=== PATIENT | male | born 1965 | race Caucasian/White ===

== ENCOUNTER 2018-06-18 01:15 | Outpatient (CLI) | payer MEDICAID, SELFPAY ==
[2018-06-18 12:43] LABS: HCT 45.2 % (40.0-50.0); HGB 15.8 g/dL (13.5-17.5); Mean Corpuscular Hemoglobin 33.4 pg (27.0-33.0); Mean Corpuscular Volume 95.6 fL (80-95); Platelet Count 243 x1000/uL (130-400); RBC 4.73 m/cumm (4.50-6.00); RBC Distribution Width 13.5 % (11.8-14.1); White Blood Cell Count 10.46 k/cumm (4.4-10.8)
[2018-06-18 14:14] LABS: Chloride 91 mmol/L (98-107); Potassium 3.7 mmol/L (3.5-5.1); Sodium 128 mmol/L (136-145)
[2018-06-18 14:17] LABS: Absolute Lymphocyte Count 2.41 k/cumm (1.2-3.4); Absolute Monocyte Count 0.31 k/cumm (0.11-0.7); Absolute Neutrophil Count 7.64 k/cumm (1.2-6.7); Diff Comment Manual Differential; RBC Morphology Normal
[2018-06-18 14:31] LABS: Lipase 682 U/L (73-393)
[2018-06-18 15:10] LABS: ALT 60 U/L (12-78); AST 97 U/L (15-37); Albumin 2.8 g/dL (3.4-5.0); Alkaline Phosphatase 375 U/L (46-116); BUN 13 mg/dL (7-18); Bilirubin, Total 1.3 mg/dL (0.2-1.0); CREATININE 0.94 mg/dL (0.70-1.30); Calcium 9.1 mg/dL (8.5-10.1); Glucose 172 mg/dL (70-100); Total Protein 6.8 g/dL (6.4-8.2)
== END 2018-06-18 01:35 ==
PROVIDERS: PCP Family Medicine; Visit Provider Family Medicine
DX: R10.9 Unspecified abdominal pain (principal)
CPT/HCPCS: 36415; 80053; 83690; 85025

== ENCOUNTER 2018-06-25 11:25 | Outpatient (CLI) | payer MEDICAID, SELFPAY ==
[2018-06-25 13:53] LABS: Albumin 2.5 g/dL (3.4-5.0); BUN 10 mg/dL (7-18); Bilirubin, Total 1.1 mg/dL (0.2-1.0); CREATININE 0.66 mg/dL (0.70-1.30); Calcium 8.2 mg/dL (8.5-10.1); Chloride 99 mmol/L (98-107); Glucose 185 mg/dL (70-100); Potassium 4.2 mmol/L (3.5-5.1); Sodium 135 mmol/L (136-145); Total Protein 6.5 g/dL (6.4-8.2)
[2018-06-25 14:02] LABS: Lipase 458 U/L (73-393)
[2018-06-25 14:22] LABS: ALT 74 U/L (12-78); AST 125 U/L (15-37); Alkaline Phosphatase 376 U/L (46-116)
== END 2018-06-25 11:45 ==
PROVIDERS: PCP Family Medicine; Visit Provider Family Medicine
DX: R10.9 Unspecified abdominal pain (principal); K85.90 Acute pancreatitis without necrosis or infection, unspecified; F10.20 Alcohol dependence, uncomplicated
CPT/HCPCS: 36415; 80053; 83690

== ENCOUNTER 2018-07-28 01:41 | Outpatient (CLI) | payer MEDICAID, SELFPAY ==
[2018-07-28 11:46] LABS: Hemoglobin A1C 5.5 % (4.5-6.2)
== END 2018-07-28 02:01 ==
PROVIDERS: PCP Family Medicine; Visit Provider Family Medicine
DX: E74.39 Other disorders of intestinal carbohydrate absorption (principal)
CPT/HCPCS: 36415; 83036

== ENCOUNTER 2020-02-09 03:51 | Outpatient (CLI) | payer MEDICAID, SELFPAY ==
[2020-02-09 10:33] LABS: Abs Immature Grans 0.02 k/cumm (0.0-0.09); Absolute Basophil Count 0.04 k/cumm (0.0-0.2); Absolute Eosinophil Count 0.51 k/cumm (0.0-0.7); Absolute Lymphocyte Count 1.79 k/cumm (1.2-3.4); Absolute Monocyte Count 0.91 k/cumm (0.11-0.7); Absolute Neutrophil Count 4.36 k/cumm (1.2-6.7); Basophils % 0.5; Eosinophils % 6.7; HCT 42.7 % (40.0-50.0); HGB 14.2 g/dL (13.5-17.5); Immature Grans % 0.3 %; Lymphocytes % 23.5; Mean Corp. HGB Concentration 33.3 g/dL (32.0-36.0); Mean Corpuscular Hemoglobin 30.9 pg (27.0-33.0); Mean Corpuscular Volume 92.8 fL (80-95); Mean Platelet Volume 9.7 fL (8.0-11.0); Monocytes % 11.9; Neutrophils % 57.1; Platelet Count 344 x1000/uL (130-400); White Blood Cell Count 7.63 k/cumm (4.4-10.8)
[2020-02-09 11:26] LABS: ALT 42 U/L (16-63); AST 22 U/L (15-37); Albumin 3.9 g/dL (3.4-5.0); Alkaline Phosphatase 71 U/L (46-116); Anion Gap 7.8 mmol/L (3-11); BUN 23 mg/dL (7-18); Bilirubin, Total 0.6 mg/dL (0.2-1.0); CO2 28.2 mmol/L (21.0-32.0); CREATININE 0.75 mg/dL (0.70-1.30); Calcium 9.2 mg/dL (8.5-10.1); Calculated LDL 144 mg/dL (<100); Chloride 103 mmol/L (98-107); Cholesterol 233 mg/dL (<200); Glucose 104 mg/dL (74-106); HDL Cholesterol 37 mg/dL (40-60); Potassium 4.7 mmol/L (3.5-5.1); Sodium 139 mmol/L (136-145); Total Protein 7.1 g/dL (6.4-8.2); Triglyceride 262 mg/dL (<150)
== END 2020-02-09 04:11 ==
PROVIDERS: Nurse Practitioner Family; PCP Family Medicine; Visit Provider Family Medicine Addiction Medicine
DX: R42 Dizziness and giddiness (principal); I10 Essential (primary) hypertension; E78.5 Hyperlipidemia, unspecified
CPT/HCPCS: 36415; 80053; 80061; 85025

== ENCOUNTER 2020-03-04 08:09 | Outpatient (CLI) | payer MEDICAID, SELFPAY ==
[2020-03-07 00:07] LABS: SARS-CoV-2 RNA Undetected (Undetected); SARS-CoV-2 Specimen Source Nasopharynx
== END 2020-03-04 08:29 ==
PROVIDERS: PCP Family Medicine; Visit Provider Family Medicine
DX: Z11.59 Encounter for screening for other viral diseases (principal)
CPT/HCPCS: U0003

== ENCOUNTER 2020-03-06 11:33 | Emergency (ER) | payer MEDICAID, SELFPAY ==
--- NOTE | 2020-03-06 11:44 | ED.GENADUL_ITS ---
Discharge Plan Disposition Patient Disposition: HOME Condition: Improving Discharge Details Chief Complaint: Nk/Back Pain Clinical Impression: Back pain, Acute back pain with sciatica Primary Care Provider: Wenceslao Jimenez ED Provider: Angelia Austin Home Meds and New Rx's Prescriptions: New diazepam [Valium] 5 mg tablet 5 mg PO BID PRN (Reason: muscle spasm) Qty: 10 RF: 0 Continued naproxen 500 mg tablet 500 mg PO BID PRN (Reason: pain) Qty: 60 RF: 1 albuterol sulfate [ProAir HFA] 90 mcg/actuation HFA aerosol inhaler 1 - 2 puff Inhalation Q4H PRN Qty: 1 RF: 3 omeprazole 20 mg tablet,delayed release (DR/EC) 20 mg PO DAILY Qty: 90 RF: 3 lisinopril 5 mg tablet 5 mg PO DAILY Qty: 90 RF: 3 metoprolol tartrate 100 mg tablet 50 mg PO BID Qty: 180 RF: 3 Discharge Instructions Instructions: Back Pain (ED) Additional Instructions: Your imaging and exam is reassuring today. I believe the majority of your pain is coming from muscle spasm. Please encourage water intake. You may continue with Tylenol and/or ibuprofen as needed for discomfort. Please take as directed on the bottle. You may also use topical options such as lidocaine patch to help with more long-term discomfort relief. Please use the Valium as prescribed for any persistent muscle spasm. Please take this only as prescribed do not drive will take this medication. Attached is a referral for physical therapy. Please contact your primary care tomorrow to schedule follow-up appointment this week for reevaluation. If you develop fever/chills, increased pain, change in bowel or bladder habits, sensation changes, weakness or other new/worsening symptom please seek care urgently once again. Stand Alone Forms: Physical Therapy Referral Referrals: Wenceslao Jimenez [Primary Care Provider] - Medical Decision Making Patient is a 54-year-old gentleman presenting today with chief complaint of right-sided lower back pain that began 5 days ago and radiates into the right lower extremity. He reports that 5 days ago he was working on his truck trying to pull a piece out of the front and loose. States that he was pulling as hard as he could when the object let go and he stumbled prior to falling backwards. Describes falling more towards the right side of his lower back. States that initially, he was not having any pain and immediately was able to get up and go back to work. However, he states that the following morning he woke up feeling tight states that the following morning, he woke up feeling more uncomfortable again on the right lower side. He indicates the right buttock is area of pain. States that yesterday when he awoke he was so uncomfortable he was having difficulty with ambulation. States that he does have tingling that extends into the right lower extremity. Denies any numbness. No changes in bowel or bladder habits. Denies any fevers or chills. Has not had pain like this historically. No previous back surgeries. States that he took ibuprofen just prior to arrival to help with discomfort. On exam, patient appears uncomfortable. He is moving frequently trying to find a comfortable position. Exam of his back is significant for no CVA tenderness, no midline tenderness, no step-off deformity, no ecchymosis or evidence of trauma. He has no paraspinal tenderness. He is more precisely indicating the right buttock is area of discomfort although no pain is elicited with palpation over this area. He has no saddle paresthesias. Post void residual obtained by nursing staff found to be 38 cc. He has no focal area of weakness, no foot drop. Patient's history and exam is most consistent with muscular spasm likely leading to sciatica. Do not appreciate any neurologic deficit to suggest cauda equina. Not see any evidence to suggest infection. While patient did have atraumatic onset, he did not seem to have any discomfort initially. Not have any suspicion for bony pathology at this point. Will hold off on imaging for now and treat as muscle spasm. Patient was given Lidoderm patch, Tylenol and 5 mg of p.o. Valium. Despite this intervention, he states that pain persists and has not improved. I will augment this with oxycodone tablet. Patient received p.o. oxycodone and reports that pain persists. States it is now down to a 9 out of 10. With the patient's continued persistent discomfort despite the above intervention, I do feel that imaging would be appropriate I will move forward with x-rays. He continues to have no midline discomfort and no evidence of neurologic dysfunction. FINDINGS: Bones/joints: No acute fracture is identified. The right hip joint is normally aligned. Left hip joint alignment cannot be confirmed without a lateral view. A left hip prosthesis is noted. Soft tissues: Phleboliths overlie the pelvis. IMPRESSION: No significant abnormality. Left hip prosthesis noted. FINDINGS: Bones/joints: Question nondisplaced fracture of the lower sacrum at the S5 level. No other fracture is evident. A left hip prosthesis is partially visualized. There is no osseous erosion or cortical destruction. The sacroiliac joints appear patent. Soft tissues: The soft tissues appear grossly unremarkable. IMPRESSION: Question nondisplaced lower sacral fracture at the S5 level. MRI would be more definitive as clinically appropriate. With this, will obtain CT for further evaluation of possiblefracture. Reevaluated the patient. He states that his pain still remains severe but he appears much more comfortable. He states that pain is still a 10 but that initially, itwas a 30. He is now reporting that he last took NSAID at 0600. FINDINGS: Bones/joints: There is beam hardening artifact from left hip prosthesis. Lower lumbar spondylosis noted. Bone density is appropriate. Alignment appears anatomic without evidence for fracture. Soft tissues: Unremarkable. IMPRESSION: No evidence for fracture Discussed his findings with the patient. Advised likely muscle spasm with associated sciatica. He states that at this time, he is feeling much improved and is is moving around much more comfortably. Patient is able to have full rotation to the right, left, good movement and strength in the bilateral lower extremities. He continues to have no midline tenderness. He has good forward flexion and extension although he does report increased discomfort with extension. Encourage gentle stretching. This was demonstrated for the patient. I encouraged heat. We discussed [id number] home regimens to help with discomfort. We will also prescribe the patient a short course of Valium to help with muscle spasm. I did encourage close follow-up with primary care. Referral for physical therapy will be sent. Patient was given strict return precautions.all of his questions and concerns were addressed all and she is in agreement with this plan. HPI General Mode of arrival: ambulatory . Date/Time Provider Initiated Documentation: 03/06/20 11:42 . Limitations to Documentation: no limitations . Information obtained by: patient and RN notes reviewed . History of Present Illness 54 year old M presents to the emergency department with the chief complaint of right sided lower back pain, described as severe, with intensity rated at >10. Quality is described as stabbing, and is localized to the back (indicates right buttock and SI joint as area of maximal tenderness). Patient extremity (into RLE). Patient started experiencing this day(s) (5) and it has been constant (progressively worsening). Immobilization improves symptom(s), Movement worsens symptoms . Patient notes no other symptoms.. Patient did receive the following treatments prior to arrival, NSAID (states he took Ibuprofen just prior ot arrival) Related Data Home Medications Medication Instructions Recorded Confirmed naproxen 500 mg tablet 500 mg PO BID PRN #60 tab 12/10/18 03/06/20 albuterol sulfate 90 mcg/actuation 1 - 2 puff INHALATION Q4H PRN #1 05/15/19 03/06/20 aerosol inhaler inhaler omeprazole 20 mg tablet,delayed 20 mg PO DAILY #90 tab 05/15/19 03/06/20 release lisinopril 5 mg tablet 5 mg PO DAILY #90 tab-cap 12/01/19 03/06/20 metoprolol tartrate 100 mg tablet 50 mg PO BID #180 tab-cap 03/02/20 03/06/20 diazepam [Valium] 5 mg PO BID PRN #10 tab 03/06/20 Previous Rx's Medication Instructions Recorded naproxen 500 mg tablet 500 mg PO BID PRN #60 tab 12/10/18 albuterol sulfate 90 mcg/actuation 1 - 2 puff INHALATION Q4H PRN #1 05/15/19 aerosol inhaler inhaler omeprazole 20 mg tablet,delayed 20 mg PO DAILY #90 tab 05/15/19 release lisinopril 5 mg tablet 5 mg PO DAILY #90 tab-cap 12/01/19 metoprolol tartrate 100 mg tablet 50 mg PO BID #180 tab-cap 03/02/20 diazepam [Valium] 5 mg PO BID PRN #10 tab 03/06/20 Allergies Allergy/AdvReac Type Severity Reaction Status Date / Time codeine Allergy Mild SKIN RASH Verified 03/02/20 09:02 Review of Systems Constitutional Constitutional: Reports as per HPI, Denies chills, Denies fatigue, Denies fever( s), Denies frequent falls, Denies headache(s) and Denies weakness Eyes Eyes: Denies change in vision ENT Ears, Nose, Mouth, and Throat: Denies headache(s) Cardiovascular Cardiovascular: Denies chest pain, Denies dyspnea and Denies dyspnea on exertion Respiratory Respiratory: Denies cough, Denies dyspnea and Denies dyspnea on exertion Gastrointestinal Gastrointestinal: Denies abdominal pain, Denies change in bowel habits and Den ies fecal incontinence Genitourinary Genitourinary: Reports as per HPI, Denies urinary hesitancy and Denies urinary incontinence Musculoskeletal Musculoskeletal: Reports as per HPI, Reports back pain, Denies muscle weakness, Denies numbness, Denies radiating pain into limb, Reports stiffness and Reports tingling Integumentary/Breasts Skin/Breast: Reports as per HPI and Denies rash Neurologic Neurologic: Reports as per HPI, Denies frequent falls, Denies headache(s), Denies localized weakness, Denies numbness, Reports radicular pain (states he is having difficulty walking secondary to pain radiating into RLE), Denies sensory deficit, Reports tingling and Denies weakness Endocrine Endocrine: Denies fatigue [facility] Medical History (Updated 03/06/20 @ 15:22 by ZAIN Yeung) Hyperlipidemia (Acute) Surgical History Arthroplasty 07/05/15; LEFT HIP;[facility] GASTROSCOPY 06/21/14- DR. 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 Drug use: Rarely Do you feel safe in your relationship?: Yes Exam Const General: cooperative, healthy appearing, uncomfortable, no acute distress, well developed and well groomed Nutritional Appearance: average body habitus and well nourished Orientation: alert and awake Eyes General: appearance normal, both eyes and all related structures Neck Neck: normal visual inspection, full ROM, no lymphadenopathy and no meningeal signs Resp Effort & Inspection: normal respiratory effort and able to speak in complete sentences Auscultation: clear to auscultation bilaterally, no rales, no rhonchi and no wheezes Cardio Rate: regular rate Rhythm: regular rhythm Heart Sounds: S1 normal and S2 normal Back/Spine/Pelvis Back: no CVA tenderness Cervical Spine: normal cervical lordosis, cervical ROM normal, No cervical spinal tenderness and No step off deformity Thoracic/Lumbar Spine: thoracic and lumbar spine normal to inspection, No paraspinal tenderness, No thoraco-lumbar ROM limited, No thoracic spinal tenderness, No lumbar spinal tenderness and straight leg raise positive (negative on left, pain with ovement of RLE) Pelvis: no pain with anterior-posterior compression, no pain with lateral compr ession, no buttock ecchymosis and no buttock tenderness (indicates right buttock as area of pain but none elicited with palpation) Sacroiliac joints: bilaterally nontender and tender to palpation Sacrum: no ecchymosis, no erythema, no swelling and no tenderness Coccyx: no swelling and no tenderness Skin General skin exam: no rashes or lesions noted Neuro General: patient alert and patient awake Cognition: normal cognition Speech: speech normal Gait: antalgic Motor: muscle tone normal throughout, strength 5/5 throughout, no movement abnormalities noted and no fasciculations Sensory Exam: no sensory deficits noted (no saddle paresthesias) DTR's: Rt Patellar: 2+, Lt Patellar: 2+, Rt Ankle: 2+ and Lt Ankle: 2+ Plantar Reflexes: Downgoing: bilateral Extrem General: normal to inspection, full ROM, capillary refill normal, no joint enlargement, no pedal edema and no calf tenderness Psych Appearance: grossly normal and well kempt Mental Status: mental status grossly normal Speech and Movement: speech and movement normal
[2020-03-06 11:56] VITALS: BP 155/83; PULSE 86; RESP 18; TEMP 36.9; O2SAT 96
[2020-03-06] MEDS: diazePAM 5 MG TAB PO (12:28)
[2020-03-06] MEDS: Acetaminophen 500 MG TAB 1000 MG PO (12:28)
[2020-03-06 12:35] VITALS: BP 127/80; PULSE 80; RESP 18; O2SAT 94
[2020-03-06] MEDS: Lidocaine 5% Patch 1 PATCH TP ×2 (13:11→13:13)
[2020-03-06] MEDS: oxyCODONE 5 MG TAB PO (13:21)
--- NOTE | 2020-03-06 13:40 | DI.RAD_ITS ---
EXAM: XR HIP RT COMPLETE AP PELVIS INDICATION: fall 4 days ago. COMPARISON: CR LEFT HIP COMPLETE from 11/21/2012 TECHNIQUE: 2D digital imaging was performed. FINDINGS: There is a left hip prosthesis. The right hip joint space is well maintained. There is no evidence of fracture or dislocation. IMPRESSION: No acute abnormality. DATA REPOSITORY: RADIATION DOSE DELIVERED:
--- NOTE | 2020-03-06 13:45 | DI.RAD_ITS ---
EXAM: XR SACRUM COCCYX CLINICAL HISTORY: right sided pain. TECHNIQUE: 2D digital imaging was performed. COMPARISON: No exams were available for comparison FINDINGS: BONES: No acute fracture is present. No bony destructive lesion is seen. A left hip prosthesis is seen. SOFT TISSUE: Normal. IMPRESSION: Unremarkable radiographs of the insert body part. DATA REPOSITORY: RADIATION DOSE DELIVERED:
--- NOTE | 2020-03-06 14:03 | DI.VRAD_ITS ---
PROCEDURE INFORMATION: Exam: XR Sacrum and Coccyx, 2 or More Views Exam date and time: 03/06/2020 1:37 PM Age: 54 years old Clinical indication: Pain in coccyx area TECHNIQUE: Imaging protocol: XR of the sacrum and coccyx, 2 or more views. COMPARISON: No relevant prior studies available. FINDINGS: Bones/joints: Question nondisplaced fracture of the lower sacrum at the S5 level. No other fracture is evident. A left hip prosthesis is partially visualized. There is no osseous erosion or cortical destruction. The sacroiliac joints appear patent. Soft tissues: The soft tissues appear grossly unremarkable. IMPRESSION: Question nondisplaced lower sacral fracture at the S5 level. MRI would be more definitive as clinically appropriate. Dictated and Authenticated by: Alvarado Davidson MD. Ordering:KAIDEN Galan MD
--- NOTE | 2020-03-06 14:04 | DI.VRAD_ITS ---
PROCEDURE INFORMATION: Exam: XR Right Hip with Pelvis when Performed Exam date and time: 03/06/2020 1:36 PM Age: 54 years old Clinical indication: Pelvic pain TECHNIQUE: Imaging protocol: XR Right hip with pelvis when performed. Views: 2 or 3 views. COMPARISON: No relevant prior studies available. FINDINGS: Bones/joints: No acute fracture is identified. The right hip joint is normally aligned. Left hip joint alignment cannot be confirmed without a lateral view. A left hip prosthesis is noted. Soft tissues: Phleboliths overlie the pelvis. IMPRESSION: No significant abnormality. Left hip prosthesis noted. Dictated and Authenticated by: Alvarado Davidson MD. Ordering:KAIDEN Galan MD
[2020-03-06 14:07] VITALS: BP 114/82; PULSE 70; RESP 20; TEMP 36.7; O2SAT 98
[2020-03-06] MEDS: Ketorolac 60 MG/2 ML VIAL IM (14:29)
--- NOTE | 2020-03-06 14:55 | DI.CT_ITS ---
EXAM: CT SACRUM AND COCCYX WO CLINICAL HISTORY: concern for fx on xr. TECHNIQUE: Imaging Protocol: Axial computed tomography images with coronal and sagittal reformatted images were created and reviewed. CONTRAST MATERIAL: Noncontrast COMPARISON: None. FINDINGS: Bones: There is no evidence of fracture. SI joints appear intact. L4-5: Small endplate osteophytes. L5-S1: No disc herniations or bulges are present. Sacrum: There is a bone island in the left sacrum. Soft Tissues: The paraspinal soft tissues are unremarkable. IMPRESSION: No acute abnormality. RADIATION DOSE DELIVERED: 403.56mGy.cm Total DLP DATA REPOSITORY: All CT scans at this facility are submitted to the National Radiology Data Registry (NRDR) Dose Index Registry (DIR) with the [employer] (ACR). RADIATION OPTIMIZATION: All CT scans at this facility use at least one of these dose optimization te chniques: automated exposure control; mA and/or kV adjustment per patient size (includes targeted exa ms where dose is matched to clinical indication); or iterative reconstruction.
--- NOTE | 2020-03-06 15:08 | DI.VRAD_ITS ---
PROCEDURE INFORMATION: Exam: CT Pelvis Without Contrast; Skeletal Exam date and time: 03/06/2020 2:23 PM Age: 54 years old Clinical indication: Other: Sacrum and coccyx pain; Patient HX: Patient fell 4 days ago. TECHNIQUE: Imaging protocol: Computed tomography images of the pelvis without contrast. Exam focused on the skeletal structures. Radiation optimization: All CT scans at this facility use at least one of these dose optimization techniques: automated exposure control; mA and/or kV adjustment per patient size (includes targeted exams where dose is matched to clinical indication); or iterative reconstruction. COMPARISON: CR XR HIP RT COMPLETE AP PELVIS 03/06/2020 1:35 PM FINDINGS: Bones/joints: There is beam hardening artifact from left hip prosthesis. Lower lumbar spondylosis noted. Bone density is appropriate. Alignment appears anatomic without evidence for fracture. Soft tissues: Unremarkable. IMPRESSION: No evidence for fracture. Dictated and Authenticated by: Sarita Carballo MD. Ordering:KAIDEN Galan MD
== END 2020-03-06 18:10 | disposition home or self-care (01) ==
PROVIDERS: Emergency Provider Physician Assistant; PCP Family Medicine
DX: M54.41 Lumbago with sciatica, right side (principal); X50.0XXA Overexertion from strenuous movement or load, initial encounter; W19.XXXA Unspecified fall, initial encounter; M62.830 Muscle spasm of back; Z96.642 Presence of left artificial hip joint
CPT/HCPCS: 96372; 99284; 72192; 72220; 73502; 99285; J1885

== ENCOUNTER 2020-06-21 11:40 | Outpatient (CLI) | payer MEDICAID, SELFPAY ==
--- NOTE | 2020-06-21 06:45 | DI.RAD_ITS ---
EXAM: XR CERVICAL SPINE COMP 4-5V CLINICAL HISTORY: cervical radiculopathy,NECK PAIN,M54.2 TECHNIQUE: COMPARISON: No exams were available for comparison FINDINGS: Seven views were obtained. There is slight narrowing of the intervertebral disc spaces at C5-6 and C 6-7 levels. Minimal hypertrophic spurring of the vertebral endplates and facet joints is noted. Beatrice ral foramina appear fairly well maintained as visualized. No focal bony lesion identified. Prevertebral soft tissues appear intact. IMPRESSION: Mild degenerative changes of the cervical spine as described above. RADIATION DOSE DELIVERED: Total DLP Total DLP
== END 2020-06-21 12:00 ==
PROVIDERS: PCP Family Medicine; Visit Provider Nurse Practitioner Family
DX: M47.22 Other spondylosis with radiculopathy, cervical region (principal)
CPT/HCPCS: 72050

== ENCOUNTER 2020-10-18 10:51 | Outpatient (CLI) | payer MEDICAID, SELFPAY ==
--- NOTE | 2020-10-18 09:30 | DI.RAD_ITS ---
EXAM: XR SHOULDER LT COMPLETE 2+V CLINICAL HISTORY: left shoulder pain. TECHNIQUE: 2D digital imaging was performed. COMPARISON: No exams were available for comparison FINDINGS: BONES: No acute fracture is present. No bony destructive lesion is seen. JOINTS: No dislocation present. Minimal spurring at the AC joint and margin of the glenoid. SOFT TISSUE: Normal. IMPRESSION: Mild degenerative changes of the left shoulder. DATA REPOSITORY: RADIATION DOSE DELIVERED:
== END 2020-10-18 10:52 | disposition home or self-care (01) ==
LOC: DIORS 10:51
PROVIDERS: PCP Family Medicine; Referring Provider Family Medicine; Visit Provider Student in an Organized Health Care Education/Training Program
DX: M25.512 Pain in left shoulder (principal); M19.012 Primary osteoarthritis, left shoulder
CPT/HCPCS: 73030

== ENCOUNTER 2020-11-07 02:11 | Outpatient (CLI) | payer MEDICAID, SELFPAY ==
--- NOTE | 2020-11-07 09:45 | DI.MRI_ITS ---
EXAM: MR CERVICAL SPINE WO CLINICAL HISTORY: CERVICAL RADICULOPATHY,M54.12 TECHNIQUE: Multiplanar multisequence MRI of the cervical spine was performed without intravenous con trast. COMPARISON: X-rays performed 06/21/2020 were reviewed FINDINGS: CERVICOMEDULLARY JUNCTION: Intact with no evidence of cerebellar tonsillar ectopia. No obvious abnor mality of the odontoid process. No evidence of Chiari 1 malformation. CERVICAL SPINAL CORD: There is no abnormal signal in the cervical spinal cord and no evidence of foca l cord atrophy nor focal cord swelling. OSSEOUS:There are no cervical fractures evident. No significant osseous lesions in the cervical vert ebrae. INDIVIDUAL LEVELS: C2-3: No disc herniation nor central canal stenosis. No foraminal stenosis. Moderate degenerative ch anges in both facet joints at this level. C3-4: There is significant disc space narrowing at this level. Right-sided Luschka joint osteophytes noted. There is right-sided disc-osteophyte complex. Central canal dimensions are lower normal. M ild degenerative changes are evident in both facet joints. Bilateral foraminal stenosis.. C4-5: Mild disc space narrowing.Mild annular bulging. On the right side there is a disc-Luschka join t osteophyte complex. Mild bilateral foraminal stenosis. Some degenerative changes also evident in both facet joints. C5-6: Mild-moderate disc space narrowing. Bilateral disc-Luschka joint osteophyte complexes which re sult in element of bilateral foraminal stenosis. Central canal dimensions are lower normal. Only mi ld degenerative changes evident in the facet joints at this level. C6-7: Moderate disc space narrowing. Bilateral Luschka joint osteophytes causing bilateral foraminal stenosis-moderate. On the right side there appears to be a posterolateral right disc protrusion whi ch extends posteriorly 3 millimeters and is approximately 7 millimeters wide. There is foraminal zafar nosis bilaterally at this level. No abnormal signal in the cord and the central canal dimensions are lower normal. C7-T1: No disc herniation nor central canal stenosis. No facet arthropathy.No foraminal stenosis. Incidentally noted on the sagittal images is a disc protrusion at T3-T4 level which appears to contac t the thoracic spinal cord. This thoracic level was not imaged the axial sequences. IMPRESSION: 1. Multilevel chronic-type degenerative disc disease with multilevel disc space narrowing and multile pati bilateral Luschka joint osteophytes causing an element of foraminal stenosis at multiple levels, as described above. 2. No significant central spinal canal stenosis nor abnormal signal within the cervical spinal cord. Also no evidence of significant cord swelling nor focal cord atrophy in the cervical spine. 3. Incidentally noted is a disc protrusion at T3-4 level, only scanned in the sagittal plane. If cli nically indicated MRI scan thoracic spine can be performed to determine number of disc protrusions in the thoracic spinal column. DATA REPOSITORY:
== END 2020-11-07 02:31 ==
PROVIDERS: PCP Family Medicine; Visit Provider Student in an Organized Health Care Education/Training Program
DX: M54.12 Radiculopathy, cervical region (principal); M50.11 Cervical disc disorder with radiculopathy, high cervical region; M50.022 Cervical disc disorder at C5-C6 level with myelopathy; M99.71 Connective tissue and disc stenosis of intervertebral foramina of cervical region
CPT/HCPCS: 72141

== ENCOUNTER 2020-12-14 04:30 | Inpatient (IN) | payer MEDICAID, SELFPAY ==
[2020-12-14] VITALS (77 sets, daily range): BP systolic 99–152; BP diastolic 50–102; PULSE 61–99; RESP 10–22; TEMP 35.4–36.9; O2SAT 92–100
--- NOTE | 2020-12-14 | DI.MRI_ITS ---
Exam(s) MR ANGIO BRAIN WO EXAM: MR ANGIO BRAIN WO CLINICAL HISTORY: cerebellar cva TECHNIQUE: Brain MRA was performed on 1.5 adán unit using [id number] sequence. No IV contrast COMPARISON: MR MR BRAIN WO from 12/14/2020. Also reviewed proceeding CT scans performed earlier same date FINDINGS: ANTERIOR CIRCULATION: Both internal carotid arteries are demonstrated be patent in the skull base-carotid canals as well as within the cavernous sinuses. Both ophthalmic arteries are patent and originated conventional fashi on off of the intracavernous internal carotid arteries. Supraclinoid aspects of both internal caroti d arteries are patent. No aneurysms. Both middle cerebral arteries are patent out to the sylvian fi ssure branches. Also no aneurysms in these vessels. Both A1 segments are patent as are the anterior cerebral arteries and there is no evidence of aneurysm at the level of the anterior communicating ar agata nor elsewhere in the [id number]. POSTERIOR CIRCULATION: Both vertebral arteries are patent at the skull base and contribute to the formation of the basilar a rtery. Posterior inferior cerebellar arteries arise from the vertebral arteries at the skull base. The basilar artery ascends in the midline without evidence of intraluminal thrombus nor dissection. Distally it gives off patent bilateral superior cerebellar arteries and above this level terminates a s patent bilateral posterior cerebral arteries. There is no evidence of aneurysm of the tip of the b asilar artery. There is a tiny posterior communicating artery on the right side of the [id number] lis. IMPRESSION: 1. Patent intracranial arteries, as described above. 2. Findings in both cerebellar hemispheres described on this CT and MRI (diffusion imaging) involving both cerebellar hemispheres both inferiorly and superiorly. High suspicion for embolic disease. Please note that CT angiography performed earlier today revealed a significant finding in the left lane bclavian artery proximal to the left vertebral artery takeoff point and this may be culprit origin of emboli. Findings called by myself to the hospitalist 12/14/2020 following completion of the study. DATA REPOSITORY:
--- NOTE | 2020-12-14 | DI.MRI_ITS ---
Exam(s) MR BRAIN WO EXAM: MR BRAIN WO CLINICAL HISTORY: cerebellar stroke TECHNIQUE: Multiplanar multisequence MRI of the brain was performed. COMPARISON: CT CT HEAD WO from 12/14/2020 FINDINGS: CEREBRAL PARENCHYMA: There is no evidence of intracranial hemorrhage. However, there are multiple foci of signal abnormal ity in both cerebellar hemispheres, significantly more so than expected from the CT scan and also exh ibiting significant abnormal signal on diffusion imaging. These are in both cerebellar hemispheres l ocated both superiorly and inferiorly. No similar supra tentorial findings evident, with only a few small foci of nonspecific signal abnormality in the periventricular white matter noted. Ventricles are not enlarged or shifted. There is no abnormal signal in the thalami nor in the martha a nd midbrain. Also sparing of the medulla. No evidence of cerebellar tonsillar ectopia. PITUITARY GLAND: No mass nor parasellar abnormality. No obvious abnormality in the cavernous sinuses. FLOW VOIDS: The expected flow void are noted. No evidence of obvious aneurysm nor obvious vascular ma lformation. PARANASAL SINUSES: The visualized paranasal sinuses appear unremarkable. No obvious finding ORBITS: No obvious findings. IMPRESSION: Extensive signal abnormality in both cerebellar hemispheres both superiorly and inferiorly implying t hat there is involvement of both right and left territories of the posterior inferior cerebellar donato haim as well as the superior cerebellar arteries. No evidence of intracranial hemorrhage. DATA REPOSITORY:
--- NOTE | 2020-12-14 04:30 | RT.EKG_ITS ---
APPROVED REPORT Exam: Resting ECG Reason for Exam: vomiting Patient Location: E HR:65 bpm ECG Measurements Heart Rate 65 AXIS OK 152 P 84 QRSd 121 QRS 80 QT 426 T 54 QTc 444 Conclusion Sinus rhythm...normal P axis, V-rate 60- 99 Nonspecific intraventricular conduction delay...QRSd >115mS, not LBBB/RBBB No stemi
--- NOTE | 2020-12-14 04:30 | DI.CT_ITS ---
Exam(s) CT HEAD WO EXAM: CT HEAD WO CLINICAL HISTORY: vomiting, right moravian headache, r/o bleed or mass. TECHNIQUE: Imaging Protocol: Axial computed tomography images with coronal and sagittal reformatted images were created and reviewed COMPARISON: No exams were available for comparison FINDINGS: There are no skull fractures nor fluid in the visualized paranasal sinuses. There is no abnormal area of hypodensity in the left cerebellar hemisphere measuring approximately 2 x 2 cm suspicious for infarct. Smaller area of hypodensity in the right cerebellar hemisphere measur ing 1 x 1 cm is also noted. In the supratentorial compartment there are no abnormal hypodense areas. Ventricular size is normal. No evidence of intracranial hemorrhage. No shift. IMPRESSION: Abnormal areas of hypodensity in both cerebellar hemispheres, left larger than right. First consider ation is for nonhemorrhagic infarctions in the posterior circulation territory. MRI/MRA or CT angiog lisa is recommended. RADIATION DOSE DELIVERED: 849.81mGy.cm Total DLP DATA REPOSITORY: All CT scans at this facility are submitted to the National Radiology Data Registry (NRDR) Dose Index Registry (DIR) with the [employer] (ACR). RADIATION OPTIMIZATION: All CT scans at this facility use at least one of these dose optimization te chniques: automated exposure control; mA and/or kV adjustment per patient size (includes targeted exa ms where dose is matched to clinical indication); or iterative reconstruction.
[2020-12-14] MEDS: Ondansetron 4 MG/2 ML VIAL (04:44)
--- NOTE | 2020-12-14 04:44 | W.ED.GENAD ---
Discharge Plan Disposition Patient Disposition: [facility] INPATIENT Condition: Stable Discharge Details Chief Complaint: Dizzy/Sync Clinical Impression: Cerebellar stroke, Nausea & vomiting Primary Care Provider: Wenceslao Jimenez ED Provider: Oracio Feng Home Meds and New Rx's Prescriptions: No Action lisinopril 5 mg tablet 5 mg PO DAILY Qty: 90 RF: 3 omeprazole 20 mg tablet,delayed release (DR/EC) 20 mg PO DAILY PRN (Reason: acid reflux) Qty: 90 RF: 3 metoprolol succinate 50 mg tablet extended release 24 hr 50 mg PO DAILY Qty: 90 RF: 3 albuterol sulfate [ProAir HFA] 90 mcg/actuation HFA aerosol inhaler 1 - 2 puff Inhalation Q4H PRN Qty: 1 RF: 3 buprenorphine-naloxone [Suboxone] 2-0.5 mg Tablet, Sublingual 1 tab SUBLINGUAL DAILY RF: 0 Medical Decision Making This is a 55-year-old male with a past medical history of high cholesterol tobacco abuse who presents today for evaluation of vomiting. Patient states that he woke up about an hour ago with symptoms of dizziness, room spinning, nausea vomiting and 1-2 episodes of loose stool. He also admits to a mild sharp right-sided temporal headache. The patient denies any headache red flags of worst headache of life, thunderclap headache, neck pain, fever, chills, concerning family history of polycystic kidney disease, Marfan syndrome, Deb-Danlos syndrome, abdominal aortic aneurysm, aortic dissection, or intracranial aneurysm. Patient denies any alcohol this evening, any new medications, any IV or illicit drugs. He denies eating anything atypical, or any other sick contacts at home. No other complaints at this time. He denies any chest pain, shortness of breath, fever, chills, recent Covid exposure. He denies any abdominal pain whatsoever. Physical exam demonstrates no abdominal tenderness at all, he does have mild horizontal nystagmus, but no other neurologic abnormalities on exam that I can appreciate at this time. Unable to ambulate the patient does secondary to notable dizziness, unable to perform head impulse test or test of skew secondary to patient's current inability due to nausea and difficulty keeping eyes open and what that brings about for nausea. Suspect vertigo as the cause of his nausea and symptoms, however with his headache we will get a CT scan to rule out acute bleed or mass or cerebellar stroke. 5:[address] scan shows evidence concerning for left cerebellar infarct. We will immediately send the patient for CTA of the head neck. I was able to contact the as the is currently unable to add any other historical facts with his current nausea and dizziness. His Rasheeda states that earlier yesterday at around 10:30 AM the patient was at work and had a notable episode of profound dizziness and weakness. It lasted for about an hour and then resolved completely on its own. He went to bed at around 9 or 10 PM tonight without any symptoms. He awoke from sleep at around 330 to 4:00 in the morning with notable nausea and vomiting. Last known well would have been around 9 or 10 PM last night. Patient is not a candidate for TPA/TNKase at this time based on the chronology of events. We will reach out to [facility] neurology for transfer. 6:30 AM I spoke with Dr. Dunham at [facility], he agrees that the patient is not a TPA or TNKase candidate, he reviewed the initial CAT scan, and is now awaiting to review the CTA. However it does appear that they do not have any significant bed availability at [facility] currently. I did contact [facility] and discussed the case with , she would like to personally review the images before deciding transfer. Patient remains stable. 7:30 AM I spoken with neurology at both [facility] (Dr. Dunham) and [facility] (Dr Holloway) and upon a review of the CT and CTA that a feel that the patient at his current clinical status is stable for admission here at [facility]. They recommend transfer if his clinical status declines but otherwise feel that his work-up can be completed here. On reassessment the patient remained stable. No acute neurologic decline on reassessment now. No signs of pupil expansion or lack of reactivity. No evidence of herniation. Vital signs stable. Will reach out to the hospitalist for admission. [facility] and [facility] had no additional treatment recommendations at this time. 8:00 Discussed the case with , he agrees with the plan and will admit the patient. I have extensively reviewed the treatment plan with the patient. I have addressed all patient concerns at this time. I have also discussed the plan with the admitting physician and they agree with the current assessment and plan and have agreed to assume responsibility for the patient. All parties demonstrate verbal understanding and agreement with our assessment and plan at this time. The documentation in this chart was dictated using Coin[employer] dictation software. Please excuse any dictation errors.Nolker FINDINGS: Brain: Hypodense focus in the left cerebellar hemisphere may reflect acute infarct. MRI or CT angiography/perfusion would be recommended. Cerebral ventricles: No ventriculomegaly. Paranasal sinuses: Visualized sinuses are unremarkable. No fluid levels. Mastoid air cells: Visualized mastoid air cells are well aerated. Bones/joints: Unremarkable. No acute fracture. Soft tissues: Unremarkable. IMPRESSION: Hypodense focus in the left cerebellar hemisphere may reflect acute infarct. MRI or CT angiography/perfusion would be recommended IMPRESSION: No significant large vessel stenosis or occlusion Again demonstrated is a focal area of decreased enhancement/attenuation in the left cerebellar hemisphere which may reflect a peripheral left basilar branch occlusion. MRI would be recommended to assess for ischemia IMPRESSION: Mild atherosclerotic plaque noted involving the distal common and proximal internal carotid arteries bilaterally. On the left and to a lesser extent on the right subtle contour irregularity of the lumen at the distal common carotid artery suggests plaque ulceration. HPI General Date/Time Provider Initiated Documentation: 12/14/20 04:41. HPI Narrative: This is a 55-year-old male with a past medical history of high cholesterol who presents today for evaluation of vomiting. Patient states that he woke up about an hour ago with symptoms of dizziness, room spinning, nausea vomiting and 1-2 episodes of loose stool. He also admits to a mild sharp right-sided temporal headache. The patient denies any headache red flags of worst headache of life, thunderclap headache, neck pain, fever, chills, concerning family history of polycystic kidney disease, Marfan syndrome, Deb-Danlos syndrome, abdominal aortic aneurysm, aortic dissection, or intracranial aneurysm. Patient denies any alcohol this evening, any new medications, any IV or illicit drugs. He denies eating anything atypical, or any other sick contacts at home. No other complaints at this time. He denies any chest pain, shortness of breath, fever, chills, recent Covid exposure. He denies any abdominal pain whatsoever. Related Data Home Medications Medication Instructions Recorded Confirmed lisinopril 5 mg tablet 5 mg PO DAILY #90 tab-cap 12/01/19 12/14/20 albuterol sulfate 90 mcg/actuation 1 - 2 puff INHALATION Q4H PRN #1 04/08/20 12/14/20 aerosol inhaler inhaler omeprazole 20 mg tablet,delayed 20 mg PO DAILY PRN #90 tab 07/27/20 12/14/20 release metoprolol succinate 50 mg 50 mg PO DAILY #90 tab 09/21/20 12/14/20 tablet,extended release 24 hr buprenorphine-naloxone [Suboxone] 1 tab SUBLINGUAL DAILY 12/14/20 12/14/20 Previous Rx's Medication Instructions Recorded lisinopril 5 mg tablet 5 mg PO DAILY #90 tab-cap 12/01/19 albuterol sulfate 90 mcg/actuation 1 - 2 puff INHALATION Q4H PRN #1 04/08/20 aerosol inhaler inhaler omeprazole 20 mg tablet,delayed 20 mg PO DAILY PRN #90 tab 07/27/20 release metoprolol succinate 50 mg 50 mg PO DAILY #90 tab 09/21/20 tablet,extended release 24 hr Allergies Allergy/AdvReac Type Severity Reaction Status Date / Time codeine Allergy Mild SKIN RASH Verified 12/14/20 04:42 General Stated Complaint: Dizzy/Sync BRET: 3 Review of Systems All systems reviewed & are unremarkable except as noted in HPI and below [facility] Medical History Hyperlipidemia Surgical History Arthroplasty 07/05/15; LEFT HIP;[facility] GASTROSCOPY 06/21/14- DR. NG Open Carpal Tunnel release RIGHT Repair of umbilical hernia Social History Smoking/Tobacco Use Status: Current every day Smoking risk assessment performed?: Yes Alcohol Intake: former Year quit: 2017 Details: Recently sober, reports stopped drinking 10/12/16 Drug use: Rarely Caregiver/Support person: Yes Household members: spouse and children Housing: house Communication Needs: None Do you need help understanding health information?: Rarely Pets and animals: Yes Pets and animals: cat(s) Do you think of yourself as: straight/heterosexual Current gender identity: male What is your relationship status?: living with partner Panel score (0-1 are the most socially isolated patients): 1 Do you feel safe in your relationship?: Yes Exam Narrative Exam Narrative: 1.Const: Well-nourished, Well-developed, appearing stated age 2.Eyes: PERRL, no conjunctival injection, and symmetrical lids. 3.ENT: Atraumatic external nose and ears. Moist MM. Neck: Symmetric, trachea midline, No thyromegaly. Mild horizontal nystagmus. No vertical or rotatory nystagmus. Patient demonstrates good movement of cervical neck. There is no nuchal rigidity, no nuchal tenderness. 4.CVS: +S1/S2, No murmurs or gallops. Peripheral pulses 2+ and equal in all extremities. Brisk capillary refill in all extremities. 5.RESP: Unlabored respiratory effort. Clear to auscultation bilaterally. No wheezes rales or rhonchi 6.GI: Soft, Nontender/Nondistended, No hepatosplenomegaly. No guarding or rebound. No pain or McBurney's point, negative Paul sign. 7.MSK: Normocephalic/Atraumatic, Extremities w/o deformity or ttp No cyanosis or clubbing, Normal movement of all extremities. 8.Skin: Warm, Dry. No rashes or lesions. 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 Sensation grossly intact, no focal neurologic deficits. All 6 cardinal planes of vision are fully intact. No evidence of rotatory or vertical nystagmus. The patient demonstrated a normal [id number], good dexterity. There was no evidence of dysdiadochokinesia. Patient demonstrates good movement of cervical neck. There is no nuchal rigidity, no nuchal tenderness. Patient is able to flex the neck without any difficulty or significant pain. Ouxt-pp-ahyf testing was normal. Unable to perform head impulse test at this time secondary to patient's nausea. Unable to perform test of skew at this time secondary to patient's intolerance of keeping eyes open secondary to nausea. Sensation was intact bilaterally as well as muscle strength bilaterally for all extremities. Patient was able to verbalize butter cup with no slurring, or miss pronunciation. 10.Psych: (AAO) x3. Appropriate mood and affect Course Vital Signs Vital signs: Vital Signs Temperature 36.3 C L 05/26/21 04:26 Pulse 69 12/14/20 04:26 Respiratory Rate 12 12/14/20 04:26 Blood Pressure 138/81 12/14/20 04:26 Pulse Oximetry 96 12/14/20 04:26 Temperature 36.3 C L 12/14/20 04:26 Pulse 69 12/14/20 04:26 Respiratory Rate 12 12/14/20 04:26 Blood Pressure 138/81 12/14/20 04:26 Blood Pressure Position Supine 12/14/20 04:26 Pulse Oximetry 96 12/14/20 04:26 Oxygen Delivery Method Room Air 12/14/20 04:26 Oxygen Flow Rate 0 12/14/20 04:26 Pain Level 0 12/14/20 04:26
[2020-12-14] MEDS: Meclizine 25 MG TAB PO (04:45)
[2020-12-14] MEDS: Normal Saline 1,000 ML 1000 ML IV (04:45)
[2020-12-14 04:47] LABS: Abs Immature Grans 0.02 10^3/uL (0.0-0.06); Absolute Basophil Count 0.09 10^3/uL (0.0-0.2); Absolute Eosinophil Count 0.38 10^3/uL (0.0-0.7); Absolute Lymphocyte Count 2.78 10^3/uL (1.2-3.4); Absolute Monocyte Count 0.85 10^3/uL (0.1-0.8); Absolute Neutrophil Count 4.28 10^3/uL (1.2-6.7); Basophils % 1.1; Eosinophils % 4.5; HCT 38.2 % (40.0-50.0); HGB 12.6 g/dL (13.5-17.5); Immature Grans % 0.2; Lymphocytes % 33.1; MCH 30.1 pg (27.0-33.0); MCV 91.4 fL (80-95); MPV 9.4 fL (8.0-11.0); Monocytes % 10.1; Nucleated RBC 0 %; Platelet Count 336 10^3/uL (130-400); RBC 4.18 10^6/uL (4.36-5.78); RDW 12.8 % (11.8-14.1); RDW-SD 42.8 fL
[2020-12-14 04:58] LABS: ALT 28 U/L (16-63); AST 20 U/L (15-37); Albumin 3.5 g/dL (3.4-5.0); Alkaline Phosphatase 66 U/L (46-116); Anion Gap 7.7 mmol/L (3-11); BUN 14 mg/dL (7-18); Bilirubin, Total 0.3 mg/dL (0.2-1.0); CO2 29.3 mmol/L (21.0-32.0); CREATININE 0.8 mg/dL (0.70-1.30); Calcium 8.7 mg/dL (8.5-10.1); Chloride 106 mmol/L (98-107); Glucose 155 mg/dL (74-106); Lipase 62 U/L (73-393); Potassium 3.9 mmol/L (3.5-5.1); Sodium 143 mmol/L (136-145); Total Protein 6.7 g/dL (6.4-8.2)
[2020-12-14 05:02] LABS: ETHANOL BLOOD < 3.0 mg/dL (<3)
--- NOTE | 2020-12-14 05:14 | DI.VRAD_ITS ---
Addendum created by Cristo Dhillon MD on 12/14/2020 5:20:21 AM EDT: THIS REPORT CONTAINS FINDINGS THAT MAY BE CRITICAL TO PATIENT CARE. The findings were verbally communicated via telephone conference with CLAIRE ARANDA at 5:20 AM EDT on 12/14/2020. The findings were acknowledged and understood. Initial report created on 12/14/2020 5:14:28 AM EDT: PROCEDURE INFORMATION: Exam: CT Head Without Contrast Exam date and time: 12/14/2020 4:42 AM Age: 55 years old Clinical indication: Pain; Other: Right temporal; Patient HX: Vomiting, right church headache, R/O bleed or mass TECHNIQUE: Imaging protocol: Computed tomography of the head without contrast. Radiation optimization: All CT scans at this facility use at least one of these dose optimization techniques: automated exposure control; mA and/or kV adjustment per patient size (includes targeted exams where dose is matched to clinical indication); or iterative reconstruction. Other technique: STROKE PROTOCOL was implemented. COMPARISON: No relevant prior studies available. FINDINGS: Brain: Hypodense focus in the left cerebellar hemisphere may reflect acute infarct. MRI or CT angiography/perfusion would be recommended. Cerebral ventricles: No ventriculomegaly. Paranasal sinuses: Visualized sinuses are unremarkable. No fluid levels. Mastoid air cells: Visualized mastoid air cells are well aerated. Bones/joints: Unremarkable. No acute fracture. Soft tissues: Unremarkable. IMPRESSION: Hypodense focus in the left cerebellar hemisphere may reflect acute infarct. MRI or CT angiography/perfusion would be recommended. ASSESSMENT: ASPECTS ([place] Stroke Program Early CT Score) is 10. Dictated and Authenticated by: Cristo Dhillon MD. Ordering:SHANTA Narayanan MD
--- NOTE | 2020-12-14 05:15 | DI.CT_ITS ---
Exam(s) CT BRAIN NECK CTA EXAM: CT BRAIN NECK CTA CLINICAL HISTORY: suspect cerebellar stroke. TECHNIQUE: Imaging Protocol: Axial CT angiography was performed with multi-slice acquisition and mu lti-planar and/or 3D reconstructions. CONTRAST MATERIAL: Intravenous: Omnipaque 350 Contrast volume:85 mL COMPARISON: No exams were available for comparison FINDINGS: CTA Neck W: Aortic arch anatomy: The aortic arch anatomy is conventional. Anterior circulation: Both common carotid arteries ascend with normal luminal diameters. Mild ulcerated plaque is noted at both carotid bifurcations but without tight stenosis at these locations nor in the proximal internal carotid arteries. Both internal carotid arteries exhibit normal diameters in above this level in th e neck and within the skull base-carotid canals. Posterior circulation: Both vertebral arteries originate in conventional fashion off of the subclavian arteries. There is s ignificant plaque in the left subclavian artery proximal to the left vertebral artery takeoff point. There is a focal area of approximately 60 percent narrowing in the left subclavian artery located 2. 4 cm distal to its origin and proximal to the left vertebral artery takeoff point. There is no signi ficant stenosis at the origin of either vertebral artery. There is no significant stenosis in the pr oximal aspect of the right subclavian artery. Both vertebral arteries ascend in the foramen transverse area in with normal and equal luminal diamet ers and no evidence of intraluminal thrombus nor dissection and both vertebral arteries contribute to the formation of the basilar artery at the skull base. CTA Brain W: Anterior circulation: Both internal carotid arteries are patent in the skull base-carotid canals as well as within the cave rnous sinuses and the supraclinoid aspects of both these vessels are patent and nonaneurysmal and con tinuous with patent bilateral middle cerebral arteries. Both A1 segments are patent. There is no ev idence of aneurysm in the region of the anterior communicating artery. Posterior circulation: Basilar artery is patent and non dolichoectatic, formed by both vertebral arteries at the skull base. Distally it gives off patent superior cerebellar arteries and above this level terminates as patent bilateral posterior cerebral arteries.. There is no evidence of aneurysm of the tip of the basilar artery nor elsewhere in the [id number]. CT BRAIN: Abnormal areas of hypodensity in the cerebellar hemispheres left larger than right again noted. Ther e are no ring enhancing lesions in these regions nor elsewhere in the brain and there is no abnormal meningeal enhancement, focal or diffuse. No evidence of intracranial hemorrhage, intra or extra-axial. IMPRESSION: 1. Given the findings in the cerebellum, both vertebral arteries are patent as is the basilar artery and main distal branches. 2. Of concern here is the appearance of the left subclavian artery proximal to the left vertebral ar agata takeoff point. There is a significant focal stenosis in the subclavian artery approximately 2.4 cm distal to its origin. This may be culprit origin of emboli causing the cerebellar findings. 3. Patent anterior circulation. Mild ulcerated plaque at the carotid bifurcations bilaterally. No high-grade stenosis in these vessels. No evidence of intracranial aneurysm nor obvious vascular malformation. This study was 1st read by [facility]. My final report was called to the ER physician 12/14/2020 8:09 a.m. RADIATION DOSE DELIVERED: 1,370.16mGy.cm Total DLP DATA REPOSITORY: All CT scans at this facility are submitted to the National Radiology Data Registry (NRDR) Dose Index Registry (DIR) with the [employer] (ACR). RADIATION OPTIMIZATION: All CT scans at this facility use at least one of these dose optimization te chniques: automated exposure control; mA and/or kV adjustment per patient size (includes targeted exa ms where dose is matched to clinical indication); or iterative reconstruction.
[2020-12-14 05:46] LABS: PTT Activated 20.9 sec (21.0-27.5); Prothrombin Time 9.8 sec (9.3-11.0)
[2020-12-14] MEDS: Omnipaque 350 MG/ML 100 ML BTL IJ (05:51)
[2020-12-14] MEDS: Normal Saline - Diluent 50 ML VIAL IV (05:52)
[2020-12-14] MEDS: Normal Saline Flush 10 ML SYR IVP ×4 (05:53→20:10)
--- NOTE | 2020-12-14 06:02 | DI.VRAD_ITS ---
PROCEDURE INFORMATION: Exam: CT Angiography Head With Contrast, Arteriography Exam date and time: 12/14/2020 5:19 AM Age: 55 years old Clinical indication: Pain; Headache; Patient HX: Suspect cerebellar stroke TECHNIQUE: Imaging protocol: Computed tomography angiography of the head with contrast. Exam focused on the arteries. 3D rendering (Not supervised by radiologist): MIP and/or 3D reconstructed images were created by the technologist. Radiation optimization: All CT scans at this facility use at least one of these dose optimization techniques: automated exposure control; mA and/or kV adjustment per patient size (includes targeted exams where dose is matched to clinical indication); or iterative reconstruction. Contrast material: OMNIPAQUE 350; Contrast volume: 85 ml; Contrast route: INTRAVENOUS (IV); COMPARISON: CT HEAD WO 12/14/2020 4:56 AM FINDINGS: ANTERIOR CIRCULATION: Right internal carotid artery: Unremarkable. Intracranial segment is patent with no significant stenosis. No aneurysm. Right middle cerebral artery: Unremarkable. No occlusion or significant stenosis. No aneurysm. Right anterior cerebral artery: Unremarkable. No occlusion or significant stenosis. No aneurysm. Left internal carotid artery: Unremarkable. Intracranial segment is patent with no significant stenosis. No aneurysm. Left middle cerebral artery: Short segmental high-grade stenosis of a post bifurcation left M2 MCA branch incidentally noted Left anterior cerebral artery: Unremarkable. No occlusion or significant stenosis. No aneurysm. POSTERIOR CIRCULATION: Right vertebral artery: Unremarkable. No occlusion or significant stenosis. No aneurysm. Left vertebral artery: Unremarkable. No occlusion or significant stenosis. No aneurysm. Basilar artery: Unremarkable. No occlusion or significant stenosis. No aneurysm. Right posterior cerebral artery: Unremarkable. No occlusion or significant stenosis. No aneurysm. Left posterior cerebral artery: Unremarkable. No occlusion or significant stenosis. No aneurysm. Brain: No definite mass, mass effect, or midline shift. Cerebral ventricles: No ventriculomegaly. Bones/joints: Unremarkable. No acute fracture. Soft tissues: Unremarkable. IMPRESSION: No significant large vessel stenosis or occlusion Again demonstrated is a focal area of decreased enhancement/attenuation in the left cerebellar hemisphere which may reflect a peripheral left basilar branch occlusion. MRI would be recommended to assess for ischemia PROCEDURE INFORMATION: Exam: CT Angiography Neck With Contrast Exam date and time: 12/14/2020 5:19 AM Age: 55 years old Clinical indication: Pain; Headache; Patient HX: Suspect cerebellar stroke TECHNIQUE: Imaging protocol: Computed tomography angiography of the neck with contrast. 3D rendering (Not supervised by radiologist): MIP and/or 3D reconstructed images were created by the technologist. Radiation optimization: All CT scans at this facility use at least one of these dose optimization techniques: automated exposure control; mA and/or kV adjustment per patient size (includes targeted exams where dose is matched to clinical indication); or iterative reconstruction. Contrast material: OMNIPAQUE 350; Contrast volume: 85 ml; Contrast route: INTRAVENOUS (IV); COMPARISON: CT HEAD WO 12/14/2020 4:56 AM FINDINGS: Right common carotid artery: No stenosis. No dissection or occlusion. Right internal carotid artery: No stenosis of the extracranial segment. No dissection or occlusion. Right external carotid artery: No occlusion or stenosis of the origin. Right vertebral artery: No stenosis. No dissection or occlusion. Left common carotid artery: See Other vasculature finding. Left internal carotid artery: No stenosis of the extracranial segment. No dissection or occlusion. Left external carotid artery: No occlusion or stenosis of the origin. Left vertebral artery: No stenosis. No dissection or occlusion. Other vasculature: Mild atherosclerotic plaque noted involving the distal common and proximal internal carotid arteries bilaterally. On the left and to a lesser extent on the right subtle contour irregularity of the lumen at the distal common carotid artery suggests plaque ulceration. Bones/joints: No acute fracture. Soft tissues: Normal. No significant soft tissue swelling. IMPRESSION: Mild atherosclerotic plaque noted involving the distal common and proximal internal carotid arteries bilaterally. On the left and to a lesser extent on the right subtle contour irregularity of the lumen at the distal common carotid artery suggests plaque ulceration. REFERENCES: NASCET CRITERIA. The degree of internal carotid artery stenosis is based on NASCET criteria. Normal is no stenosis. Mild is less than 50% stenosis. Moderate is 50-69% stenosis. Severe is 70% to 99% stenosis. Total occlusion is no detectable patent lumen. Dictated and Authenticated by: Cristo Dhillon MD. Ordering:SHANTA Narayanan MD
[2020-12-14] MEDS: Ondansetron 4 MG/2 ML VIAL IVP (06:42)
[2020-12-14] MEDS: Aspirin 81 MG CHEW PO (08:29)
[2020-12-14] MEDS: Heparin 5,000 UNITS/ML VIAL 5000 UNITS SC ×2 (08:29→17:51)
[2020-12-14 08:33] LABS: Source Nasal/Nares
[2020-12-14 08:43] LABS: Calculated LDL 154 mg/dL (<100); Cholesterol 226 mg/dL (<200); HDL Cholesterol 39 mg/dL (40-60); Triglyceride 167 mg/dL (<150)
[2020-12-14 08:46] LABS: Hemoglobin A1C 5.6 % (<5.7)
--- NOTE | 2020-12-14 11:33 | NCONE_ITS ---
Date of service: 12/14/20 Time of Service: 11:33 Assessment and Plan Assessment and plan (1) Cerebellar stroke: Status: Acute (2) Nausea & vomiting: Status: Acute (3) Vertigo: Status: Acute Assessment and plan: Mr. Mayorga is a 55-year-old, right-handed man who was admitted with vertigo, nausea, and vomiting along with a mild headache presumed to be due to cerebellar stroke. He will undergo MRI brain imaging as further work-up along with echocardiogram. He will continue telemetry. He will continue aspirin 81 mg daily along with atorvastatin for secondary stroke prevention. Given location and size of stroke along with young age/lack of atrophy, I do not recommend dual antiplatelets at this time as he is at increased risk of hemorrhage. He is also at increased risk of herniation which I discussed with him along with nursing staff. He will need continued close neurological monitoring. Continue telemetry. PT and OT once he is able to tolerate. Permissive hyerptension at this time. Treatment of n/v as per primary team. I will continue to follow along. DISCLAIMER: This note was created using [employer] Chinese voice recognition software. History of Present Illness History of Present Illness Chief Complaint: stroke Narrative: Handedness: right. HPI: Mr. Mayorga is a 55 year-old man with hypertension, hyperlipidemia, cigarette smoking, opioid dependence, and GERD. Mr. Mayorga presented to the [facility] emergency room just after 4 in the morning today after waking up 1 hour pr evious with severe vertigo, nausea, and emesis, along with a mild right temporal headache and 1-2 loose stools. He underwent a CT head as below which was concerning for a large left and small right cerebellar infarct. He was last known normal at 10 PM when he went to bed. Thus, he was not a TPA candidate as he was outside of the time window. There were no beds [facility] at [facility] [place] [email or web address] and thus he was admitted here for further monitoring. He was started on aspirin 81mg and atorvastatin 80mg. Since admission, he is tolerating opening his eyes briefly, however prefers to be in a dark location laying still. Of interest, yesterday while working around 10 AM, he developed acute onset vertigo with again a mild right temporal headache. He returned home, laid down, and symptoms resolved after about an hour. He has no history of headaches. He denies any recent accidents, chiropractic visits, or unusual projects requiring prolonged neck extension. Work-up: -CTH (12/14/20): acute/subacute appearing L >> R cerebellar infarcts. I reviewed these images personally and this is my personal interpretation. -CTA head/neck (12/14/20): no evidence of vertebral dissection. Radiology noted focal left subclavian stenosis proximal to the left vertebral artery takeoff. I reviewed these images personally and this is my personal interpretation. -TTE: pending -Labs: LDL 154, A1c 5.6 -Tele: no afib Consults Requesting physician: John Rivera Review of Systems All systems reviewed & are unremarkable except as noted in HPI and below [facility] Medical History Anxiety (07/24/07) trial wellbutrin prn lorazepam GERD (gastroesophageal reflux disease) History of alcohol abuse Hyperlipidemia Hypertension Opioid dependence Smoker encouraged regular use of wellbutrin, both for mood and tobacco abuse Surgical History Arthroplasty 07/05/15; LEFT HIP;[facility] GASTROSCOPY 06/21/14- DR. NG Open Carpal Tunnel release RIGHT Repair of umbilical hernia Social History Smoking/Tobacco Use Status: Current every day Tobacco Type: cigarettes Smoking packs per day: 1 Smoking cigarettes per day: 20.0 Smoking risk assessment performed?: Yes Alcohol Intake: former Year quit: 2016 Details: Recently sober, reports stopped drinking 10/12/16 Drug use: Rarely Caregiver/Support person: Yes Household members: spouse and children Housing: house Communication Needs: None Do you need help understanding health information?: Rarely current occupation: [employer] Pets and animals: Yes Pets and animals: cat(s) Do you think of yourself as: straight/heterosexual Current gender identity: male What is your relationship status?: living with partner Panel score (0-1 are the most socially isolated patients): 1 Do you feel safe in your relationship?: Yes Visit Medication and Allergies Active Medications Generic Name Dose Route Start Last Admin Trade Name Freq PRN Reason Stop Dose Admin Acetaminophen 650 mg 12/14/20 07:53 Acetaminophen 325 Mg Tab PO Q4H PRN PRN Al Hydrox/Mg Hydrox/Simethicone 30 ml 12/14/20 07:53 Mylanta Suspension 30 Ml Cup PO Q2H PRN PRN Aspirin 81 mg 12/14/20 08:30 12/14/20 08:29 Aspirin 81 Mg Chew PO 81 mg DAILY DANNIELLE Administration Atorvastatin Calcium 80 mg 12/14/20 20:00 Atorvastatin 40 Mg Tab PO QPM DANNIELLE Dimethicone/Zinc Oxide 0 gm 12/14/20 07:53 Zaida Protect Cream 142 Gm Tube TP PRN PRN Heparin Sodium (Porcine) 5,000 units 12/14/20 08:00 12/14/20 08:29 Heparin 5,000 Units/Ml Vial SC 5,000 units Q8H DANNIELLE Administration Nicotine 21 mg 12/14/20 07:53 Nicotine 21 Mg/24 Hr Patch TD DAILY PRN PRN Polyethylene Glycol 17 gm 12/14/20 07:53 Polyethylene Glycol 3350 17 Gm Packet PO DAILY PRN PRN Constipation Sodium Chloride 10 ml 12/14/20 05:53 12/14/20 06:43 Normal Saline Flush 10 Ml Syr IVP 10 ml PRN PRN Administration Allergies codeine Allergy (Mild, Verified 12/14/20 04:42) SKIN RASH Exam Narrative Exam Narrative: Physical Exam: Gen: Patient of apparent stated age, moderate distress - prefers to lay still in the dark with eyes closed Head and face: no facial or cranial abnormalities Neck: Supple, no meningismus, no occipital tenderness CV: + S1, S2, RRR, no murmur Resp: CTA B/L Abd: soft, nontender, nondistended Ext: No edema. No clubbing or cyanosis. No bony deformity. Neuro Exam: Language: fluency, naming, repetition, and comprehension intact; Mental Status: Ox3, sleepy, current events intact, fund of knowledge intact; Speech: no dysarthria Cranial nerves: Funduscopy: not performed CN II: visual howard intact CN III, IV, : extraocular movements intact, no nystagmus, pupils symmetric/large but reactive to light CN V: face sensation intact to PP CN VII: no facial asymmetry noted CN VIII: hearing intact bilaterally CN IX, X: palate rises symmetrically CN XI: trapezius/SCM 5/5 bilaterally CN XII: protrudes tongue symmetrically Sensory: intact to PP in all extremities Motor: bulk and tone intact. Fine motor movements reduced bilaterally. No pronator drift. Strength 5/5 throughout including the deltoids, biceps, tric eps, wrist extensors, hip flexors, knee flexors, knee extensors, ankle flexors, and ankle extensors. Reflexes: 2+ at the biceps, triceps, brachioradialis, patella, and achilles tendons bilaterally; toes down going bilaterally; Coordination: subtle ataxia in LUE and LLE Gait: not able to test at present Results Last Vital Signs Temp 35.4 C L 12/14/20 09:00 Pulse 77 12/14/20 09:05 Resp 16 12/14/20 09:00 BP 149/90 H 12/14/20 09:00 Pulse Ox 97 12/14/20 09:00 Labs Result diagrams: 12/14/20 04:32 12/14/20 04:32 Labs: Laboratory Results - last 24 hr 12/14/20 12/14/20 12/14/20 04:32 04:32 04:32 WBC 8.40 RBC 4.18 L Hgb 12.6 L Hct 38.2 L MCV 91.4 MCH 30.1 MCHC 33.0 RDW 12.8 Plt Count 336 MPV 9.4 Immature Gran % 0.2 Neutrophils % 51.0 Lymphocytes % 33.1 Monocytes % 10.1 Eosinophils % 4.5 Basophils % 1.1 Nucleated RBC % 0 Absolute Neutrophils 4.28 Absolute Lymphocytes 2.78 Absolute Monocytes 0.85 H Absolute Eosinophils 0.38 Absolute Basophils 0.09 PT INR APTT Sodium 143 Potassium 3.9 Chloride 106 Carbon Dioxide 29.3 Anion Gap 7.7 BUN 14 Creatinine 0.8 Estimated GFR/1.73 m2 >= 60.00 Glucose 155 H Hemoglobin A1c 5.6 Calcium 8.7 Total Bilirubin 0.3 AST 20 ALT 28 Alkaline Phosphatase 66 Total Protein 6.7 Albumin 3.5 Triglycerides 167 H Total Cholesterol 226 H LDL Cholesterol, Calc 154 H HDL Cholesterol 39 L Lipase 62 Ethyl Alcohol < 3.0 COVID-19 Source 12/14/20 12/14/20 05:25 08:22 WBC RBC Hgb Hct MCV MCH MCHC RDW Plt Count MPV Immature Gran % Neutrophils % Lymphocytes % Monocytes % Eosinophils % Basophils % Nucleated RBC % Absolute Neutrophils Absolute Lymphocytes Absolute Monocytes Absolute Eosinophils Absolute Basophils PT 9.8 INR 1.0 APTT 20.9 L Sodium Potassium Chloride Carbon Dioxide Anion Gap BUN Creatinine Estimated GFR/1.73 m2 Glucose Hemoglobin A1c Calcium Total Bilirubin AST ALT Alkaline Phosphatase Total Protein Albumin Triglycerides Total Cholesterol LDL Cholesterol, Calc HDL Cholesterol Lipase Ethyl Alcohol COVID-19 Source Nasal/nares
--- NOTE | 2020-12-14 13:48 | W.PM.HP.N ---
Date of service: 12/14/20 Time of Service: 13:48 Assessment and Plan Assessment and plan (1) Cerebellar stroke: Status: Acute Assessment and plan: MRI/MRA brain findings of bilateral cerebellar hemispheres (both inferiorly and superiorly) with findings of CVA; likely embolic. CT angiography also showed ?left subclavian artery proximal to the left vertebral artery takeoff point, a significant focal stenosis in the subclavian artery approximately 2.4 cm distal to its origin.? This may be culprit origin of emboli causing the cerebellar findings. Neurology was consulted. ASA 81mg daily and Atorvastatin 80mg daily initiated. Scopolamine patch initiated. Given the risk of brain stem herniation and hemorrhage into the areas of cerebellar infarct, an attempt was made to transfer pt to [facility] but they felt he did not warrant transfer at this time; no interventions that they could offer. Eventually he will need vascular surgery evaluation for the subclavian stenosis caused by plaque that is likely rupturing causing emboli. Planning to discuss his case with [facility] neurology for possible transfer. (2) Hyperlipidemia: Status: Acute Assessment and plan: High dose statin, atorvastatin 80mg, initiated. (3) Subclavian artery stenosis, right: Status: Acute Assessment and plan: Likely source of emboli to cerebellum. History of Present Illness History of Present Illness Chief Complaint: Vertigo, Nausea and Vomitting Narrative: This is a 55 male with a PMH of HLD, alcohol abuse disorder, anxiety/depression, HTN. He presented to the ED after waking 1 hour prior to presentation with dizziness, N/V. He described the room seemed to be spinning. Also noted is a right-sided temporal area CHRISTY described as mild and sharp in nature. No worse headache he has ever had, no F/C, CP/palpitations, abd pain. Lab w/u showed a mild anemia with Hgb of 12.6. Electrolytes were normal. On PE in the ED he was noted to have mild horizontal nystagmus but no other neurologic deficits. CT head showed L cerebellar infarct. [facility] neurology was contacted by ED physician; Dr. Dunham. Not a TPA or TNKase candidate. However, there was no bed availability at [facility]. Dr Holloway at [facility] was then contacted. CT head and CTA head were discussed and it was felt he could be admitted at [facility]. He was admitted for neurology consult, MRI/MRA brain and echocardiogram pending. Review of Systems Constitutional Constitutional: Reports system reviewed and no additional complaints, except as documented [facility] Medical History Anxiety (07/24/07) trial wellbutrin prn lorazepam GERD (gastroesophageal reflux disease) History of alcohol abuse Hyperlipidemia Hypertension Opioid dependence Smoker encouraged regular use of wellbutrin, both for mood and tobacco abuse Surgical History Arthroplasty 07/05/15; LEFT HIP;[facility] GASTROSCOPY 06/21/14- DR. NG Open Carpal Tunnel release RIGHT Repair of umbilical hernia Social History Smoking/Tobacco Use Status: Current every day Tobacco Type: cigarettes Smoking packs per day: 1 Smoking cigarettes per day: 20.0 Smoking risk assessment performed?: Yes Alcohol Intake: former Year quit: 2016 Details: Recently sober, reports stopped drinking 10/12/16 Drug use: Rarely Caregiver/Support person: Yes Household members: spouse and children Housing: house Communication Needs: None Do you need help understanding health information?: Rarely current occupation: [employer] Pets and animals: Yes Pets and animals: cat(s) Do you think of yourself as: straight/heterosexual Current gender identity: male What is your relationship status?: living with partner Panel score (0-1 are the most socially isolated patients): 1 Do you feel safe in your relationship?: Yes Meds Allergies and Home Medications Allergies Allergy/AdvReac Type Severity Reaction Status Date / Time codeine Allergy Mild SKIN RASH Verified 12/14/20 04:42 Home Medications Medication Instructions Recorded Confirmed Type lisinopril 5 mg tablet 5 mg PO DAILY #90 tab-cap 12/01/19 12/14/20 Rx albuterol sulfate 90 mcg/actuation 1 - 2 puff INHALATION Q4H PRN #1 04/08/20 12/14/20 Rx aerosol inhaler inhaler omeprazole 20 mg tablet,delayed 20 mg PO DAILY PRN #90 tab 07/27/20 12/14/20 Rx release metoprolol succinate 50 mg 50 mg PO DAILY #90 tab 09/21/20 12/14/20 Rx tablet,extended release 24 hr buprenorphine-naloxone [Suboxone] 1 tab SUBLINGUAL DAILY 12/14/20 12/14/20 History Results Labs Result diagrams: 12/14/20 04:32 12/14/20 04:32 Labs: Laboratory Results - last 24 hr 12/14/20 12/14/20 12/14/20 04:32 04:32 04:32 WBC 8.40 RBC 4.18 L Hgb 12.6 L Hct 38.2 L MCV 91.4 MCH 30.1 MCHC 33.0 RDW 12.8 Plt Count 336 MPV 9.4 Immature Gran % 0.2 Neutrophils % 51.0 Lymphocytes % 33.1 Monocytes % 10.1 Eosinophils % 4.5 Basophils % 1.1 Nucleated RBC % 0 Absolute Neutrophils 4.28 Absolute Lymphocytes 2.78 Absolute Monocytes 0.85 H Absolute Eosinophils 0.38 Absolute Basophils 0.09 PT INR APTT Sodium 143 Potassium 3.9 Chloride 106 Carbon Dioxide 29.3 Anion Gap 7.7 BUN 14 Creatinine 0.8 Estimated GFR/1.73 m2 >= 60.00 Glucose 155 H Hemoglobin A1c 5.6 Calcium 8.7 Total Bilirubin 0.3 AST 20 ALT 28 Alkaline Phosphatase 66 Total Protein 6.7 Albumin 3.5 Triglycerides 167 H Total Cholesterol 226 H LDL Cholesterol, Calc 154 H HDL Cholesterol 39 L Lipase 62 Ethyl Alcohol < 3.0 COVID-19 Source 12/14/20 12/14/20 05:25 08:22 WBC RBC Hgb Hct MCV MCH MCHC RDW Plt Count MPV Immature Gran % Neutrophils % Lymphocytes % Monocytes % Eosinophils % Basophils % Nucleated RBC % Absolute Neutrophils Absolute Lymphocytes Absolute Monocytes Absolute Eosinophils Absolute Basophils PT 9.8 INR 1.0 APTT 20.9 L Sodium Potassium Chloride Carbon Dioxide Anion Gap BUN Creatinine Estimated GFR/1.73 m2 Glucose Hemoglobin A1c Calcium Total Bilirubin AST ALT Alkaline Phosphatase Total Protein Albumin Triglycerides Total Cholesterol LDL Cholesterol, Calc HDL Cholesterol Lipase Ethyl Alcohol COVID-19 Source Nasal/nares Last Vital Signs Temp 35.4 C L 12/14/20 09:00 Pulse 77 12/14/20 09:05 Resp 16 12/14/20 09:00 BP 149/90 H 12/14/20 09:00 Pulse Ox 97 12/14/20 09:00 COVID-19 Screening Have you, or household traveled for leisure in last 14 days?: No Had IN PERSON contact w/suspected or confirmed C-19 person: No
--- NOTE | 2020-12-14 15:27 | NT_ITS ---
Date of service: 12/14/20 Time of Service: 15:27 PT Notes Visit Reasons: Cerebellar CVA Patient was moved to ICU elevel of care for immediate and urgent medical intevention related to acute/subacute cerebellar CVA. Per nurse Cheri, patient may potentially transfer to a tertiary hospital anytime. Thank you for the opportunity to participate in the care of this patient. Salome Ivey PT, DPT, CLT [facility] [place], [place]
[2020-12-14 16:05] LABS: COVID-19 PCR Negative (Negative)
[2020-12-14] MEDS: Scopolamine 1 MG/3 DAYS PATCH TD (17:53)
[2020-12-14] MEDS: Atorvastatin 40 MG TAB 80 MG PO (20:07)
--- NOTE | 2020-12-14 20:43 | NUR.NOTE ---
Nursing Note: Dr Rasheeda Cardenas enquired patient's condition over the phone at 20:42H with this principal technical writer and wanted to let her know if the patient will be transfered.
[2020-12-15] VITALS (19 sets, daily range): BP systolic 99–160; BP diastolic 56–88; PULSE 68–94; RESP 9–19; TEMP 36.3–36.7; O2SAT 93–96
[2020-12-15] MEDS: Heparin 5,000 UNITS/ML VIAL 5000 UNITS SC ×3 (00:11→15:49)
--- NOTE | 2020-12-15 08:41 | NT_ITS ---
Date of service: 12/15/20 Time of Service: 08:41 Occupational Therapy Notes 12/15/20 OT consult received, since consult was sent pt was transitioned to the ICU for a decline in medical status. Based on the decline, OT will need a new evaluation when pt is appropriate for skilled OT services. Reina Cash OTR/L [facility]
[2020-12-15] MEDS: Buprenorphine/Naloxone 2 mg/0.5 mg FILM 1 EACH SL (09:05)
[2020-12-15] MEDS: Aspirin 81 MG CHEW PO (09:05)
[2020-12-15] MEDS: Metoprolol CR 25 MG TABCR 12.5 MG PO (09:06)
--- NOTE | 2020-12-15 10:11 | INITIAL_ITS ---
- If Service Date Differs Date of service: 12/15/20 Time of Service: 10:11 Care Management Initial Assess REASON FOR HOSPITALIZATION:: cerebellar stroke PAST MEDICAL HISTORY/PAST SURGICAL HISTORY:: Medical History. Anxiety (07/24/07). trial wellbutrin. prn lorazepam. GERD (gastroesophageal reflux disease). History of alcohol abuse. Hyperlipidemia. Hypertension. Opioid dependence. Smoker. encouraged regular use of wellbutrin, both for mood and t obacco abuse. Surgical History . Arthroplasty. 07/05/15; LEFT HIP;[facility]. GASTROSCOPY. 06/21/14- DR. NG. Open Carpal Tunnel release. RIGHT. Repair of umbilical hernia PREVIOUS FUNCTIONAL STATUS/SOCIAL/FAMILY SUPPORTS:: Andrew lives in [facility]) with his girlfriend Rasheeda and 3 year old son. He has another son who is 25 and lives with his (Andrew's) parents in a home on the same property. He also has a 22 year old daughter who lives on her own. Andrew is a [employer] and is self-employed. He was independent with ADLs, driving etc prior to his current illness. CURRENT FUNCTIONAL STATUS:: Andrew was sitting up in bed when CM met with him. He was pleasant and agreable to conversation. Andrew described the details of his CVA and the sequence of symptoms. Today he is still having a headasche, nausea and dizziness. He stated that he had an MRI about a month ago because of left arm t ingling and loss of sensation in his left hand. Andrew has been told that he will be transferred to [facility] as soon as a bed is available. ADVANCE DIRECTIVES:: none on file Has patient been provided with info about the portal/API?: Yes Did the patient sign up for the portal?: Yes (previously) CODE STATUS:: Full Code INSURANCE COVERAGE / FINANCIAL ISSUES:: Medicaid CURRENT HOME/COMMUNITY SERVICES/EQUIPMENT:: none PRIMARY CARE PHYSICIAN:: Wenceslao Jimenez POTENTIAL DISCHARGE NEEDS:: Follow up with PCP and discharge plan of care PATIENT/FAMILY EDUCATION NEEDS:: Review of discharge instructions, medications, activity, follow up plan, limitations. Ask Me Three TRANSPORTATION:: via ambulance coordinated by nursing welding production supervisor PLAN:: Andrew will be transferred to [facility] later today. He will transport via ambulance coordinated by nursding welding production supervisor and follow the plan of care of their providers.
[2020-12-15] MEDS: Nicotine 21 MG/24 HR PATCH TD (10:29)
[2020-12-15] MEDS: Normal Saline Flush 10 ML SYR IVP ×3 (10:31→19:43)
[2020-12-15] MEDS: Ondansetron 4 MG/2 ML VIAL IVP (10:32)
[2020-12-15] MEDS: Acetaminophen 325 MG TAB 650 MG PO (10:32)
--- NOTE | 2020-12-15 13:13 | NUR.NOTE ---
Nursing Note: Patient's mother here to visit.
--- NOTE | 2020-12-15 14:42 | CHAPLAIN ---
Akash was resting in bed when I visited. His mom was with him. Akash is waiting for a bed to open up in [facility]. Akash was pleasant, but not interested in a conversation.
--- NOTE | 2020-12-15 14:46 | PGE_ITS ---
Date of Service Date of service: 12/15/20 Time of Service: 14:46 Assessment and Plan Assessment and plan (1) Cerebellar stroke: Status: Acute Assessment and plan: ASA 81mg daily Atorvastatin 80mg daily Telemetry monitoring. No afib + plaque in subclavian causing stenosis; likely source of emboli. Permissive hypertension [facility] has accepted him in transfer when bed available. No increased drowsiness, no confusion, worsening headache. (2) Cervical radiculopathy: Status: Acute Assessment and plan: MRI C-spine on 11/07/20; has appt next Saturday with Dr. Hinojosa. Findings: 1. Multilevel chronic-type degenerative disc disease with multilevel disc space narrowing and multilevel bilateral Luschka joint osteophytes causing an element of foraminal stenosis at multiple levels, as described above. 2. No significant central spinal canal stenosis nor abnormal signal within the cervical spinal cord.? Also no evidence of significant cord swelling nor focal cord atrophy in the cervical spine. 3. Incidentally noted is a disc protrusion at T3-4 level, only scanned in the sagittal plane.? If clinically indicated MRI scan thoracic spine can be performed to determine number of disc protrusions in the thoracic spinal column. Subjective Subjective Patient reports: feels better, tolerating a regular diet and afebrile; denies bowel movement, diarrhea and shortness of breath Interval history since last seen: He states his double vision has improved; is present after initially opening eyes but then resolves. +2/10 R temporal CHRISTY. Intermittent nausea w/o emesis. Ate breakfast Exam Const General: cooperative and no acute distress Nutritional Appearance: average body habitus Orientation: alert and oriented x3 Eyes Sclera: sclerae normal Pupils: PERRL EOM: No nystagmus Resp Effort & Inspection: normal respiratory effort Auscultation: clear to auscultation bilaterally Cardio Rate: regular rate Rhythm: regular rhythm Heart Sounds: S1 normal and S2 normal Neuro General: no focal motor deficits Cranial Nerves: no nystagmus Cognition: normal cognition Speech: speech normal Extrem General: no pedal edema and no calf tenderness Objective Last Vital Signs Temp 36.6 C 12/15/20 12:10 Pulse 68 12/15/20 12:01 Resp 13 12/15/20 12:01 BP 99/56 L 12/15/20 12:01 Pulse Ox 93 05/27/21 11:19 Laboratory Results - last 24 hr 12/14/20 08:22 SARS-CoV-2 (PCR) Negative
--- NOTE | 2020-12-15 16:43 | W.PM.PROGNOT ---
Date of Service Date of service: 12/15/20 Time of Service: 16:44 Assessment and Plan Assessment and plan (1) Cerebellar stroke: Status: Acute (2) Nausea & vomiting: Status: Acute (3) Vertigo: Status: Acute Assessment and plan: Mr. Mayorga is a 55-year-old, right-handed man who was admitted with vertigo, nausea, and vomiting along with a mild headache secondary to bilateral cerebellar stroke. Etiology remains unknown but is either due to cardioembolus vs atheroembolus. Continue telemetry with 30 day cardiac monitoring as further work-up. I also recommend MCKENNA as further work-up. Otherwise, cerebral edema peaks at day3-5. Clinically he has had improvement which is reassuring. Continue aspirin 81mg daily along with atorvastatin for secondary stroke prevention. PT/OT once he is able to tolerate. I was able to review his images with him, his sister and mother. we discussed the plan above extensively. He should follow-up in the neurology clinic in 4-6 weeks. Subjective Subjective Interval history since last seen: Mr. Mayorga has had some improvement overnight. Able to keep eyes open now. Can tolerate slow head movements. Vision remains blurred, slowed to focus but improved. Continues to have low grade headaches. Zofran x1 this afternoon. No afib on tele. -TTE: EF 68%, no wall motion abnormalities. LA normal. Exam Narrative Exam Narrative: Physical Exam: Constitutional: Patient of apparent stated age, well nourished, well developed, no acute distress Neuro: MS/Language/Speech: Alert, oriented, clear language (fluency and comprehension), no dysarthria CN: PERRL, EOMI, visual howard full, no facial asymmetry, hearing intact Motor: Normal bulk and tone. FMM intact, no pronator drift. 5/5 strength in bilateral upper and lower extremities Coordination: Finger to nose performed without dysmetria; HTS intact Objective Last Vital Signs Temp 36.4 C L 12/15/20 15:53 Pulse 83 12/15/20 16:01 Resp 13 12/15/20 16:01 BP 145/84 H 12/15/20 16:01 Pulse Ox 93 12/15/20 11:19
[2020-12-15] MEDS: Atorvastatin 40 MG TAB 80 MG PO (19:40)
[2020-12-16] VITALS (16 sets, daily range): BP systolic 113–149; BP diastolic 58–88; PULSE 69–96; RESP 9–22; TEMP 36.2–36.4; O2SAT 95–96
[2020-12-16] MEDS: Heparin 5,000 UNITS/ML VIAL 5000 UNITS SC ×2 (00:28→07:48)
[2020-12-16] MEDS: Metoprolol CR 25 MG TABCR 12.5 MG PO (07:48)
[2020-12-16] MEDS: Ondansetron 4 MG/2 ML VIAL IVP (07:49)
[2020-12-16] MEDS: Normal Saline Flush 10 ML SYR IVP (07:49)
[2020-12-16] MEDS: Aspirin 81 MG CHEW PO (07:50)
[2020-12-16] MEDS: Acetaminophen 325 MG TAB 650 MG PO (07:50)
[2020-12-16] MEDS: Buprenorphine/Naloxone 2 mg/0.5 mg FILM 1 EACH SL (07:50)
--- NOTE | 2020-12-16 08:24 | CMPROGNOTE_ITS ---
- If Service Date Differs Date of service: 12/16/20 Time of Service: 08:25 Care Management Progress Note S/O:Andrew was sitting up in bed when CM met with him. He stated that he is feeling a little better but that the headache and dizziness remain. He is hopeful that he may be able to transfer to [facility] today. This afternoon [facility] notified the hospitalist that a bed is now available and arrangements for transfer are in process. A;Andrew is a 55 year old man admitted on 12/14/20 with a cerebellar CVA P:Mitchanibal is awaiting transfer to [facility]. He will transport via ambulance coordinated by nursing supervisor laboratory animal facility and follow the plan of care of the providers there. CM will continue to support Akash and his discharge planning needs.
--- NOTE | 2020-12-16 15:02 | W.PM.DS.N ---
Date of service: 12/16/20 Time of Service: 15:04 DS: Diagnosis Discharge Diagnosis (1) Cerebellar stroke: Status: Acute (2) Nausea & vomiting: Status: Acute (3) Vertigo: Status: Acute Discharge Plan Disposition Patient Disposition: OLIVIA STRAUSS ([facility]) Condition: Stable Discharge Details Reason For Visit: Cerebellar CVA Admit Date/Time: 12/14/20 07:53 Admit Provider: John Rivera Attending Provider: John Rivera Primary Care Provider: Wenceslao Jimenez Hospital Course Hospital Course: This is a 55 male with a PMH of HLD, alcohol abuse disorder, anxiety/depression, HTN. He presented to the ED after waking 1 hour prior to presentation with dizziness, N/V. He described the room seemed to be spinning. Also noted is a right-sided temporal area CHRISTY described as mild and sharp in nature. No worse headache he has ever had, no F/C, CP/palpitations, abd pain. Lab w/u showed a mild anemia with Hgb of 12.6. Electrolytes were normal. On PE in the ED he was noted to have mild horizontal nystagmus but no other neurologic deficits. CT head showed L cerebellar infarct. [facility] [place] was contacted by ED physician; Dr. Dunham. Not a TPA or TNKase candidate. However, there was no bed availability at [facility] Holloway at [facility] was then contacted. CT head and CTA head were discussed and it was felt he could be admitted at [facility]. He was admitted for neurology consult, MRI/MRA brain and echocardiogram were then obtained. MRI/MRA: Findings in both cerebellar hemispheres described on this CT and MRI (diffusion imaging) involving both cerebellar hemispheres both inferiorly and superiorly. High suspicion for embolic disease. Review of CT head showed significant finding in the left subclavian artery proximal to the left vertebral artery takeoff; narrowing d/t plaque. This is very likely the source of emboli. Echocardiogram was unremarkable. Neurology consulted. ASA 81mg and Atorvastatin 80 mg daily. He remained stable. His visual abnormalities / double vision improved. His vertigo did improve as well. He was not ambulated to test for improvement in his ataxia. Transferring to [facility]. Home Meds and New Rx's Prescriptions: No Action lisinopril 5 mg tablet 5 mg PO DAILY Qty: 90 RF: 3 omeprazole 20 mg tablet,delayed release (DR/EC) 20 mg PO DAILY PRN (Reason: acid reflux) Qty: 90 RF: 3 metoprolol succinate 50 mg tablet extended release 24 hr 50 mg PO DAILY Qty: 90 RF: 3 albuterol sulfate [ProAir HFA] 90 mcg/actuation HFA aerosol inhaler 1 - 2 puff Inhalation Q4H PRN Qty: 1 RF: 3 buprenorphine-naloxone [Suboxone] 2-0.5 mg Tablet, Sublingual 1 tab SUBLINGUAL DAILY RF: 0 Discharge Orders Discharge Orders: Discharge Order (Routine); Ordered 12/16/20 Ordered By: John Rivera DS: Summary Time Spent with Patient providing and/or coordinating discharge services: Greater than 30 minutes Status at Discharge Functional status at discharge: independent ambulation (currently kept bedbound d/t cerebellar stroke and vertigo) Overall status at discharge: patient is not back to baseline Mental Status: mental status grossly normal Speech and Movement: speech and movement normal Mood: anxious mood Affect: blunted Exam Const General: cooperative and no acute distress Nutritional Appearance: average body habitus Orientation: alert and oriented x3 HENMT Head: normocephalic Eyes Sclera: sclerae normal Pupils: PERRL EOM: No nystagmus Resp Effort & Inspection: normal respiratory effort Auscultation: clear to auscultation bilaterally Cardio Rate: regular rate Rhythm: regular rhythm Heart Sounds: S1 normal and S2 normal GI Palpation: soft and nontender Neuro General: no focal motor deficits Cranial Nerves: PERRL, no nystagmus, facial strength normal and no nystagmus Cognition: normal cognition Speech: speech normal Extrem General: no pedal edema and no calf tenderness Psych Mental Status: mental status grossly normal Speech and Movement: speech and movement normal Mood: anxious mood Affect: blunted DS: Data Vitals/I&O Vitals and I&O: Vital Signs Temperature 36.4 C L 12/16/20 12:17 Temperature Source Temporal Artery Scan 12/16/20 12:17 Pulse 78 12/16/20 10:01 Pulse Rhythm Regular 12/14/20 08:15 Pulse 96 H 12/16/20 14:00 Respiratory Rate 9 L 12/16/20 14:00 Respiratory Effort Non-Labored 12/16/20 12:17 Respiratory Depth Normal 12/16/20 12:17 Respiratory Pattern Normal 12/16/20 12:17 Blood Pressure 124/73 12/16/20 10:01 Blood Pressure Mean 88 12/16/20 10:01 Blood Pressure Position Right Lateral 12/16/20 12:17 Pulse Oximetry 96 12/16/20 04:29 Oxygen Delivery Method Room Air 12/16/20 12:17 Oxygen Flow Rate 0 12/16/20 12:17 Pain Level 2 12/16/20 12:17 Intake & Output 12/15/20 12/16/20 12/16/20 23:59 11:59 23:59 Intake Total 20 / 370 10 / 210 200 / 210 Output Total 450 / 550 350 / 350 Balance -430 / -180 -340 / -140 200 / -140 Weight 75.5 kg Intake: IV 10 / 10 Oral 200 / 200 Output: Urine 450 / 550 350 / 350 Other: Urine Color Yellow Yellow Urine Appearance Clear Clear Urine Odor None None Comment Voids in urinal. Patient voids in urinal. Patient voids in urinal. Voiding Methods Urinal Urinal [facility] Medical History Anxiety (07/24/07) trial wellbutrin prn lorazepam GERD (gastroesophageal reflux disease) History of alcohol abuse Hyperlipidemia Hypertension Opioid dependence Smoker encouraged regular use of wellbutrin, both for mood and tobacco abuse Surgical History Arthroplasty 07/05/15; LEFT HIP;[facility] GASTROSCOPY 06/21/14- DR. NG Open Carpal Tunnel release RIGHT Repair of umbilical hernia Social History Smoking/Tobacco Use Status: Current every day Tobacco Type: cigarettes Smoking packs per day: 1 Smoking cigarettes per day: 20.0 Smoking risk assessment performed?: Yes Alcohol Intake: former Year quit: 2016 Details: Recently sober, reports stopped drinking 10/12/16 Drug use: Rarely Caregiver/Support person: Yes Household members: spouse and children Housing: house Communication Needs: None Do you need help understanding health information?: Rarely current occupation: [employer] Pets and animals: Yes Pets and animals: cat(s) Do you think of yourself as: straight/heterosexual Current gender identity: male What is your relationship status?: living with partner Panel score (0-1 are the most socially isolated patients): 1 Do you feel safe in your relationship?: Yes
[2020-12-16] MEDS: Nicotine 21 MG/24 HR PATCH TD (15:16)
== END 2020-12-16 15:50 | disposition short-term general hospital (02) | DRG 65 ==
LOC: ER 08:47 → MS 08:53 → ICU 16:45
PROVIDERS: Admitting Provider Family Medicine; Emergency Provider Student in an Organized Health Care Education/Training Program; PCP Family Medicine; Visit Provider Family Medicine
DX: I63.443 Cerebral infarction due to embolism of bilateral cerebellar arteries (principal); F11.20 Opioid dependence, uncomplicated; E78.00 Pure hypercholesterolemia, unspecified; F17.210 Nicotine dependence, cigarettes, uncomplicated; I10 Essential (primary) hypertension; F41.9 Anxiety disorder, unspecified; F10.11 Alcohol abuse, in remission; M54.12 Radiculopathy, cervical region; I70.8 Atherosclerosis of other arteries; Z20.822 Contact with and (suspected) exposure to COVID-19
CPT/HCPCS: 36415; 70496; 70498; 70544; 80053; 80061; 83690; 87635; 93005; 96361; 96374; 96375; 99285; 70450; 70551; 80320; 83036; 85025; 85610; 85730; 93010; 93306; 99223; 99233; 99239; J1644; J2405; J3490

== ENCOUNTER 2021-01-20 01:27 | Observation (INO) | payer MEDICAID, SELFPAY ==
[2021-01-20] VITALS (18 sets, daily range): BP systolic 98–119; BP diastolic 65–77; PULSE 62–85; RESP 17–20; TEMP 36.3–36.7; O2SAT 94–98
--- NOTE | 2021-01-20 | DI.MRI_ITS ---
Exam(s) MR BRAIN WO EXAM: MR BRAIN WO CLINICAL HISTORY: h/o cerebellar stroke, recurrence of vertigo TECHNIQUE: Multiplanar multisequence MRI of the brain was performed. COMPARISON: MR MR BRAIN WO from 12/14/2020 MR MR BRAIN WO from 12/14/2020 MR MR ANGIO BRAIN WO from 12/14/2020 FINDINGS: MR examination of brain was performed according to the usual protocol. Examination is compared with prior brain MRI of December 14. On today's examination previously noted areas of infarction in both cer ebellar hemispheres are again noted, there is no diffusion restriction at this time to suggest acute or subacute infarction. Areas of increased signal noted on T2 weighted imaging are consistent with a reas of recent or ongoing ischemia. T1 weighted imaging shows some linear areas of high signal at th e borders of these areas also consistent with intermediate age infarction. Note is also made of patc hy abnormal signal in periventricular white matter consistent with microvascular ischemic changes and a small focus of abnormal signals also seen in right thalamus consistent with lacunar infarct. No new areas of signal abnormality are seen. Susceptibility weighted imaging shows no evidence of acute intracranial hemorrhage. The orbital and temporal bone structures appear intact. IMPRESSION: The appearance as described above is consistent with evolution of previously noted bilateral cerebell ar infarcts seen on prior examination of December 14. There is no new area of infarction identified on today's examination and there is no evidence of hemorrhagic transformation of infarction. DATA REPOSITORY:
--- NOTE | 2021-01-20 01:15 | RT.EKG_ITS ---
APPROVED REPORT Exam: Resting ECG Reason for Exam: vision changes Patient Location: E HR:76 bpm ECG Measurements Heart Rate 76 AXIS NH 140 P -25 QRSd 112 QRS -28 QT 381 T 7 QTc 429 Conclusion Sinus rhythm...normal P axis, V-rate 60- 99 Probable left ventricular hypertrophy...multiple LVH criteria
--- NOTE | 2021-01-20 01:37 | ED.GENADUL_ITS ---
Discharge Plan Disposition Patient Disposition: [facility] Condition: Stable Discharge Details Chief Complaint: GenMedical Clinical Impression: Vertigo Primary Care Provider: Wenceslao Jimenez ED Provider: Alvarado Pascual [place] Meds and New Rx's Prescriptions: No Action omeprazole 20 mg tablet,delayed release (DR/EC) 20 mg PO DAILY PRN (Reason: acid reflux) Qty: 90 RF: 3 aspirin 81 mg tablet,delayed release (DR/EC) 81 mg PO DAILY Qty: 90 RF: 3 atorvastatin 80 mg tablet 80 mg PO DAILY Qty: 90 RF: 3 metoprolol succinate 50 mg tablet extended release 24 hr 50 mg PO DAILY Qty: 90 RF: 3 albuterol sulfate [ProAir HFA] 90 mcg/actuation HFA aerosol inhaler 1 - 2 puff Inhalation Q4H PRN Qty: 1 RF: 3 lisinopril 5 mg tablet 5 mg PO DAILY Qty: 90 RF: 3 buprenorphine-naloxone [Suboxone] 2-0.5 mg Tablet, Sublingual 1 tab SUBLINGUAL DAILY RF: 0 Medical Decision Making 55 yo male who had a cerebellar cva in November, smoker, prior alcoholism, htn, who comes in with chief complaint of dizziness. He states he went to bed around 9pm tonight feeling well and woke up within the last hour stating he felt dizziness similar to when he had his cerebellar cva. He states he is feeling better but still has some dizziness with head movement. He denies chest pain, dyspnea, fevers, chills, vomit. He arrives hemodynamically stable, no focal motor or sensation deficits, CN II-XII intact and no nystagmus on initial exam. NIH of 0 on initial exam. Given he had a stroke within the last 3 months not a lytic candidate, will obtain ct head/ctaneck and brain and obtain lab work as well. Will treat symptoms with meclizine as this could be peripheral vertigo. labs and imaging unremarkable for acute pathology. He states his symptoms are improving but still has dizziness with head turning. Discussed with him and he would like to be observed in the hospital and potentially have another mri, spoke with Dr. Mcnamara who accepts for admission Differential Diagnosis Differential Diagnosis: cerebellar cva, vertigo, electrolyte abnormality Medical Records Medical records reviewed: Yes I reviewed the patient's medical records. Imaging Data Radiologic Study: Attestation: I personally reviewed and interpreted this imaging study as follows: Imaging: CT Scan Radiologist's impression: no acute findings Lab Data Lab results reviewed: Yes I reviewed the patient's lab results. ECG Data Attestation: I personally reviewed and interpreted this ECG (s) as follows: Prior ECG tracings: available for review Interpretation: sinus rhythm, rate of 70, no acute st t wave ischemic findings HPI General Mode of arrival: EMS . Date/Time Provider Initiated Documentation: 01/20/21 01:32 . Limitations to Documentation: no limitations . Information obtained by: patient . History of Present Illness 55 year old M presents to the emergency department with the chief complaint of dizziness, described as moderate, Patient started experiencing this hour(s) (1) and it has been now resolved. No relieving factors improve symptom(s), No exa cerbating factors reported . Patient notes no other symptoms.. Patient did receive the following treatments prior to arrival, none Related Data Home Medications Medication Instructions Recorded Confirmed albuterol sulfate 90 mcg/actuation 1 - 2 puff INHALATION Q4H PRN #1 04/08/20 12/14/20 aerosol inhaler inhaler omeprazole 20 mg tablet,delayed 20 mg PO DAILY PRN #90 tab 07/27/20 01/20/21 release metoprolol succinate 50 mg 50 mg PO DAILY #90 tab 09/21/20 01/20/21 tablet,extended release 24 hr buprenorphine-naloxone [Suboxone] 1 tab SUBLINGUAL DAILY 12/14/20 01/20/21 aspirin 81 mg tablet,delayed 81 mg PO DAILY #90 tab 12/30/20 01/20/21 release atorvastatin 80 mg tablet 80 mg PO DAILY #90 tab 12/30/20 01/20/21 lisinopril 5 mg tablet 5 mg PO DAILY #90 tab-cap 01/09/21 01/20/21 Previous Rx's Medication Instructions Recorded albuterol sulfate 90 mcg/actuation 1 - 2 puff INHALATION Q4H PRN #1 04/08/20 aerosol inhaler inhaler omeprazole 20 mg tablet,delayed 20 mg PO DAILY PRN #90 tab 07/27/20 release metoprolol succinate 50 mg 50 mg PO DAILY #90 tab 09/21/20 tablet,extended release 24 hr aspirin 81 mg tablet,delayed 81 mg PO DAILY #90 tab 06/11/21 release atorvastatin 80 mg tablet 80 mg PO DAILY #90 tab 12/30/20 lisinopril 5 mg tablet 5 mg PO DAILY #90 tab-cap 01/09/21 Allergies Allergy/AdvReac Type Severity Reaction Status Date / Time codeine Allergy Mild SKIN RASH Verified 12/30/20 16:08 General Stated Complaint: GenMedical BRET: 3 Review of Systems All systems reviewed & are unremarkable except as noted in HPI and below Constitutional Constitutional: Denies chills, Denies fever(s) and Denies weakness Cardiovascular Cardiovascular: Denies chest pain and Denies dyspnea Respiratory Respiratory: Denies cough and Denies dyspnea Gastrointestinal Gastrointestinal: Denies abdominal pain and Denies vomiting Musculoskeletal Musculoskeletal: Denies joint swelling Neurologic Neurologic: Denies weakness [facility] Medical History Anxiety (07/24/07) trial wellbutrin prn lorazepam GERD (gastroesophageal reflux disease) History of alcohol abuse Hyperlipidemia Hypertension Opioid dependence Smoker encouraged regular use of wellbutrin, both for mood and tobacco abuse Surgical History Arthroplasty 07/05/15; LEFT HIP;[facility] GASTROSCOPY 06/21/14- DR. NG Open Carpal Tunnel release RIGHT Repair of umbilical hernia Social History Smoking/Tobacco Use Status: Current every day Tobacco Type: cigarettes Smoking packs per day: 1 Smoking cigarettes per day: 20.0 Smoking risk assessment performed?: Yes Alcohol Intake: former Year quit: 2016 Details: Recently sober, reports stopped drinking 10/12/16 Drug use: Rarely Caregiver/Support person: Yes Household members: spouse and children Housing: house Communication Needs: None Do you need help understanding health information?: Rarely current occupation: [employer] Pets and animals: Yes Pets and animals: cat(s) Do you think of yourself as: straight/heterosexual Current gender identity: male What is your relationship status?: living with partner Panel score (0-1 are the most socially isolated patients): 1 Do you feel safe at home: Yes Do you feel safe in your relationship?: Yes Exam Const General: no acute distress Orientation: alert HENMT Head: normal to inspection Ears: external ears normal General nose exam: external nose normal Mouth: moist mucous membranes Eyes General: appearance normal, both eyes and all related structures Neck Neck: normal visual inspection Resp Effort & Inspection: normal respiratory effort and able to speak in complete sentences Cardio Rate: regular rate Skin General skin exam: no rashes or lesions noted Neuro General: patient alert and patient oriented x3 Extrem General: normal to inspection Psych Mental Status: mental status grossly normal Course Vital Signs Vital signs: Vital Signs Temperature 36.7 C 01/20/21 01:28 Pulse 85 01/20/21 01:28 Respiratory Rate 18 01/20/21 01:28 Blood Pressure 118/67 01/20/21 01:28 Pulse Oximetry 97 01/20/21 01:28 Temperature 36.7 C 01/20/21 01:28 Temperature Source Temporal Artery Scan 01/20/21 01:28 Pulse 85 01/20/21 01:28 Respiratory Rate 18 01/20/21 01:28 Respiratory Effort Non-Labored 01/20/21 01:31 Blood Pressure 118/67 01/20/21 01:28 Pulse Oximetry 97 01/20/21 01:28 Oxygen Delivery Method Room Air 01/20/21 01:28 Oxygen Flow Rate 0 01/20/21 01:28 Pain Level 0 01/20/21 01:28
--- NOTE | 2021-01-20 01:45 | DI.CT_ITS ---
Exam(s) CT BRAIN NECK CTA EXAM: CT BRAIN NECK CTA CLINICAL HISTORY: stroke symptoms. TECHNIQUE: Imaging Protocol: Axial CT angiography was performed with multi-slice acquisition and mu lti-planar and/or 3D reconstructions. CONTRAST MATERIAL: Intravenous: Omnipaque 350 Contrast volume:structured data in ml COMPARISON: CT CT HEAD WO from 12/14/[address] BRAIN NECK CTA from 12/14/[address] HEAD WO from 12/14/2020 FINDINGS: CT angiography of the cervical cranial region was performed according to the usual protocol with intr avenous infusion of 100 cc of Omnipaque 350.. Initial noncontrast scanning of the head again shows an area of decreased attenuation of the left cer ebellar hemisphere as noted prior examinations of December 14. This is smaller on today's examination. The lesion now measures about 18 x 12 millimeters in diameter as compared to about 24 x 16 millimete rs in diameter on the prior study. This probably represents evolution of an infarct. Additional are as of apparent old infarction are noted in the right cerebellar hemisphere. These also show evolutio n since the prior examination with more clearly defined low-attenuation areas. There are multiple ar eas of enhancement associated with the areas of decreased attenuation, these findings may represent a cute extension of cysts subacute infarctions both in the left and right hemispheres. There is no urvashi dence of acute intracranial hemorrhage. Visualized lung apices are clear. Visualized portions of thoracic aorta and pulmonary arterial circul ation are unremarkable. There is no evidence of a cervical mass or adenopathy. The tracheal laryngeal structures appear intact. The common, internal, and external carotid arteries show no evidence of aneurysm, significant stenosi s, or dissection. There is minimal atheromatous plaque formation at the left carotid bifurcation. I would note that a previously described apparent narrowing of proximal left subclavian artery is less prominent on today's examination and the previous findings may represent flow artifact. The vertebral arteries are unremarkable in appearance in the cervical region with no evidence of aneu rysm, stenosis, or dissection. Intracranial portions of the internal carotid arteries appear of normal diameter with no evidence of aneurysm, stenosis, or dissection. Minimal atheromatous changes noted in the cavernous portions of t he internal carotid arteries with some wall calcification. Intracranial vertebral arteries and basilar artery appear normal with no evidence of aneurysm, stenos is or dissection. No aneurysm identified in the region of the [id number]. The anterior, middle, and posterior cer ebral arteries and major branches appear intact with no evidence of aneurysm, stenosis, or dissection . No enhancing brain lesion identified. IMPRESSION: Findings suggesting extension of previously noted bilateral cerebellar infarcts. Brain MRI recommend ed for further evaluation. No acute change in appearance of cervical or intracranial circulation. RADIATION DOSE DELIVERED: 2,173.48mGy.cmTotal DLP 2,173.48mGy.cm Total DLP DATA REPOSITORY: All CT scans at this facility are submitted to the National Radiology Data Registry (NRDR) Dose Index Registry (DIR) with the [employer] ([employer]). RADIATION OPTIMIZATION: All CT scans at this facility use at least one of these dose optimization te chniques: automated exposure control; mA and/or kV adjustment per patient size (includes targeted exa ms where dose is matched to clinical indication); or iterative reconstruction.
[2021-01-20 02:00] LABS: ALT 25 U/L (16-63); AST 16 U/L (15-37); Albumin 3.4 g/dL (3.4-5.0); Alkaline Phosphatase 79 U/L (46-116); Anion Gap 7.3 mmol/L (3-11); BUN 14 mg/dL (7-18); Bilirubin, Total 0.5 mg/dL (0.2-1.0); CO2 27.7 mmol/L (21.0-32.0); CREATININE 0.9 mg/dL (0.70-1.30); Chloride 107 mmol/L (98-107); Glucose 102 mg/dL (74-106); Magnesium 1.6 mg/dL (1.8-2.4); Potassium 3.6 mmol/L (3.5-5.1); Sodium 142 mmol/L (136-145); Total Protein 6.9 g/dL (6.4-8.2)
[2021-01-20 02:05] LABS: PTT Activated 24.8 sec (21.0-27.5); Prothrombin Time 10.1 sec (9.3-11.0)
[2021-01-20 02:09] LABS: Abs Immature Grans 0.03 10^3/uL (0.0-0.06); Absolute Basophil Count 0.07 10^3/uL (0.0-0.2); Absolute Eosinophil Count 0.65 10^3/uL (0.0-0.7); Absolute Lymphocyte Count 2.65 10^3/uL (1.2-3.4); Absolute Monocyte Count 1.22 10^3/uL (0.1-0.8); Absolute Neutrophil Count 6.35 10^3/uL (1.2-6.7); Basophils % 0.6; Eosinophils % 5.9; HCT 38.4 % (40.0-50.0); HGB 12.6 g/dL (13.5-17.5); Immature Grans % 0.3; Lymphocytes % 24.2; MCH 30.1 pg (27.0-33.0); MCHC 32.8 % (32.0-36.0); MCV 91.9 fL (80-95); MPV 9.6 fL (8.0-11.0); Monocytes % 11.1; Neutrophils % 57.9; Nucleated RBC 0 %; Platelet Count 315 10^3/uL (130-400); RBC 4.18 10^6/uL (4.36-5.78); RDW 12.5 % (11.8-14.1); RDW-SD 42.1 fL; WBC 10.97 10^3/uL (4.4-10.8)
[2021-01-20 02:10] LABS: Calcium 8.9 mg/dL (8.5-10.1)
[2021-01-20] MEDS: Normal Saline - Diluent 50 ML VIAL IV (02:22)
[2021-01-20] MEDS: Omnipaque 350 MG/ML 100 ML BTL IJ (02:22)
[2021-01-20] MEDS: Normal Saline Flush 10 ML SYR IVP (02:23)
[2021-01-20] MEDS: MAGNESIUM SULFATE 2 GM/50 ML BAG IVPB (02:24)
[2021-01-20] MEDS: Meclizine 25 MG TAB PO (02:24)
--- NOTE | 2021-01-20 02:53 | DI.VRAD_ITS ---
PROCEDURE INFORMATION: Exam: CT Angiography Head With Contrast, Arteriography Exam date and time: 01/20/2021 1:46 AM Age: 55 years old Clinical indication: Other: Stroke symptoms TECHNIQUE: Imaging protocol: Computed tomography angiography of the head with contrast. Exam focused on the arteries. 3D rendering (Not supervised by radiologist): MIP and/or 3D reconstructed images were created by the technologist. Radiation optimization: All CT scans at this facility use at least one of these dose optimization techniques: automated exposure control; mA and/or kV adjustment per patient size (includes targeted exams where dose is matched to clinical indication); or iterative reconstruction. Contrast material: OMNIPAQUE 350; Contrast volume: 100 ml; Contrast route: INTRAVENOUS (IV); COMPARISON: MR ANGIO BRAIN WO 12/14/2020 11:59 AM FINDINGS: ANTERIOR CIRCULATION: Right internal carotid artery: There are mild atherosclerotic calcifications within the cavernous segment of the right internal carotid artery but no significant stenosis, thrombus or dissection. Right middle cerebral artery: No high-grade stenosis, occluding thrombus, dissection or aneurysm. Right anterior cerebral artery: No high-grade stenosis, occluding thrombus, dissection or aneurysm. Left internal carotid artery: There are mild atherosclerotic calcifications within the cavernous segment of the left internal carotid artery but no significant stenosis, thrombus or dissection. Left middle cerebral artery: No high-grade stenosis, occluding thrombus, dissection or aneurysm. Left anterior cerebral artery: No high-grade stenosis, occluding thrombus, dissection or aneurysm. POSTERIOR CIRCULATION: Right vertebral artery: No high-grade stenosis, occluding thrombus, dissection or aneurysm. Left vertebral artery: No high-grade stenosis, occluding thrombus, dissection or aneurysm. Basilar artery: No high-grade stenosis, occluding thrombus, dissection or aneurysm. Right posterior cerebral artery: There are atherosclerotic irregularities within the right posterior cerebral artery but no high-grade stenosis, thrombus or aneurysm. Left posterior cerebral artery: No high-grade stenosis, occluding thrombus, dissection or aneurysm. Brain: There is a small focus of encephalomalacia within the posteroinferior right cerebellar hemisphere consistent with a remote infarct. No acute ischemia is identified, although, CT is relatively insensitive within the 1st 24 hours. There is no intracranial hemorrhage, abnormal extra-axial fluid, hydrocephalus, mass, mass effect or midline shift. Cerebral ventricles: No ventriculomegaly. Bones/joints: Unremarkable. No acute fracture. Soft tissues: Unremarkable. IMPRESSION: 1. No high-grade stenosis, occluding thrombus, dissection or aneurysm within the intracranial circulation. 2. Remote infarct within the posteroinferior right cerebellar hemisphere evidence by encephalomalacia. PROCEDURE INFORMATION: Exam: CT Angiography Neck With Contrast Exam date and time: 01/20/2021 1:46 AM Age: 55 years old Clinical indication: Other: Stroke symptoms TECHNIQUE: Imaging protocol: Computed tomography angiography of the neck with contrast. 3D rendering (Not supervised by radiologist): MIP and/or 3D reconstructed images were created by the technologist. Radiation optimization: All CT scans at this facility use at least one of these dose optimization techniques: automated exposure control; mA and/or kV adjustment per patient size (includes targeted exams where dose is matched to clinical indication); or iterative reconstruction. Contrast material: OMNIPAQUE 350; Contrast volume: 100 ml; Contrast route: INTRAVENOUS (IV); COMPARISON: MR ANGIO BRAIN WO 12/14/2020 11:59 AM FINDINGS: Right common carotid artery: No high-grade stenosis, occluding thrombus, dissection or aneurysm. Right internal carotid artery: Minimal calcified atherosclerotic plaque is noted in the right carotid bulb with no significant stenosis, thrombus or dissection. Right external carotid artery: No high-grade stenosis, occluding thrombus, dissection or aneurysm. Left common carotid artery: No high-grade stenosis, occluding thrombus, dissection or aneurysm. Left internal carotid artery: Minimal calcified atherosclerotic plaque is noted in the left carotid bulb without significant stenosis, thrombus or dissection. Left external carotid artery: No high-grade stenosis, occluding thrombus, dissection or aneurysm. Right vertebral artery: No high-grade stenosis, occluding thrombus, dissection or aneurysm. Left vertebral artery: No high-grade stenosis, occluding thrombus, dissection or aneurysm. Aorta: There is the usual arch configuration without an arch aneurysm or dissection. Soft tissues: Normal. No significant soft tissue swelling. Bones/joints: No acute fracture. Lungs: There is mild centrilobular emphysema and biapical pleuroparenchymal scarring in the lung apices. IMPRESSION: 1. No high-grade stenosis, occluding thrombus, dissection or aneurysm within the neck circulation. REFERENCES: NASCET CRITERIA. The degree of internal carotid artery stenosis is based on NASCET criteria. Normal is no stenosis. Mild is less than 50% stenosis. Moderate is 50-69% stenosis. Severe is 70% to 99% stenosis. Total occlusion is no detectable patent lumen. Dictated and Authenticated by: Toni Caldera MD. Ordering:FIDENCIO Childers MD
[2021-01-20 03:48] LABS: Source Nasal/Nares
[2021-01-20 04:40] LABS: COVID-19 PCR Negative (Negative)
--- NOTE | 2021-01-20 07:11 | W.PM.HP.N ---
Date of service: 01/20/21 Time of Service: 06:12 Assessment and Plan Assessment and plan (1) Cerebellar stroke: Status: Acute Assessment and plan: Recurrence of vertigo symptoms he had with acute cerebellar stroke that occurred approximately 5 weeks ago. Symptoms have improved but not completely resolved since early this morning. I agree that there is no indication for tPA. The etiology of the initial stroke was felt to be embolic from the subclavian artery plaque. CTA this time is benign. He has been adherent to the ASA and atorvastatin high dose. He was not given clopidogrel after the first stroke due to concern for risk of hemorrhage as well as presumed embolic nature of the CVA. I think worth repeating MRI to assess for new stroke. If again concerning for embolism, could consider anticoagulant in consultation with neurology. PT ordered, though he is already stable on his feet this morning on my exam. (2) Vertigo: Status: Acute Assessment and plan: see above, secondary to cerebellar vascular disease, improved. (3) Smoker: Status: Acute Assessment and plan: has cut back, support quitting all together. NRT patch for now. (4) Opioid dependence: Status: Acute Assessment and plan: Has been stable on MAT with buprenorphine/naloxone with BAART. Get UDS to assess for other drug use, particularly stimulants. (5) Hypertension: Status: Inactive Assessment and plan: BP a little low overnight. It is possible he is getting ischemic symptoms due to low BP, though he describes BPs in 120s/70s regularly at home. Hold lisinopril for now. (6) Wheezing: Status: Acute Assessment and plan: Denies symptoms currently. Should consider PFTs for COPD as outpatient. (7) DVT prophylaxis: Status: Acute Assessment and plan: LMWH (8) Discharge planning issues: Status: Acute Assessment and plan: He is already improving, likely can go home after MRI result and plan for prevention of recurrence. History of Present Illness History of Present Illness Chief Complaint: vertigo Narrative: 55 yo M smoker with history of HTN and admission 12/14/20 for acute cerebellar CVA. At that time he was transferred to [facility], neurology felt CVA was embolic related to subclavian stenosis. He has been taking ASA and atorvastatin since. This morning at about 1am he woke during a dream and had recurrence of same spinning/vertigo feeling he had with his first stroke. He saw dream-like scenes flashing in his vision and the room was spinning. The symptoms were the same but not as intense as the original stroke. He also had associated fecal urgency with loose stool, the same as the first time. He did not have LOC or incontinence. He had some nausea but no headache. He called 911 when these symptoms were not going away. More intense vertigo lasted about one hour, and he currently has mild vertigo when he moves his head. He did have a bad headache 3 days ago after doing yard work for a couple hours, but not since. He has had to limit physical labor since his stroke. He is monitoring his BP at home and running 120s/70s on metoprolol and lisinopril. Review of Systems Constitutional Constitutional: Denies anorexia, Denies chills, Denies fever(s), Denies lethargy and Denies weakness Eyes Eyes: Reports as per HPI, Denies diplopia, Denies irritation and Denies loss of vision ENT Ears, Nose, Mouth, and Throat: Reports vertigo, Reports dizziness, Denies nasal congestion, Denies nasal discharge and Denies sore throat Cardiovascular Cardiovascular: Denies chest pain, Denies syncope, Denies palpitations, Denies dyspnea and Denies orthopnea Respiratory Respiratory: Reports cough (had a cold earlier in the week, feels well now), Denies excessive phlegm production and Denies dyspnea Gastrointestinal Gastrointestinal: Denies abdominal pain, Denies heartburn, Reports nausea and Denies vomiting Genitourinary Genitourinary: Denies hematuria, Denies dysuria and Denies urinary incontinence Integumentary/Breasts Skin/Breast: Denies rash and Denies skin ulcer Neurologic Neurologic: Denies abnormal speech, Denies confusion, Reports vertigo, Reports dizziness, Denies syncope, Denies localized weakness, Denies loss of vision, Denies sensory deficit, Denies paresthesias and Denies weakness Psychiatric Psychiatric: Denies confusion, Denies mood swings and Denies panic attacks Endocrine Endocrine: Denies palpitations Hematologic/Lymphatic Hematologic/Lymphatic: Denies easy bleeding [facility] Medical History Anxiety (07/24/07) trial wellbutrin prn lorazepam GERD (gastroesophageal reflux disease) History of alcohol abuse Hyperlipidemia Hypertension Opioid dependence Smoker encouraged regular use of wellbutrin, both for mood and tobacco abuse Surgical History Arthroplasty 07/05/15; LEFT HIP;[facility] GASTROSCOPY 06/21/14- DR. NG Open Carpal Tunnel release RIGHT Repair of umbilical hernia Social History (Updated 01/20/21 @ 07:48 by Al Mcnamara) Smoking/Tobacco Use Status: Current every day Tobacco Type: cigarettes Smoking packs per day: 1 Smoking cigarettes per day: 20.0 Quit status: considering quitting Second Hand Exposure: Yes Counseling given: provider counseling and counseling >3 minutes Smoking risk assessment performed?: Yes Alcohol Intake: former Year quit: 2016 Details: reports stopped drinking 10/12/16 Drug use: Never Details: no recent drug use, on suboxone Caregiver/Support person: Yes Household members: spouse and children Housing: house Communication Needs: None Do you need help understanding health information?: Rarely current occupation: [employer] Pets and animals: Yes Pets and animals: cat(s) Do you think of yourself as: straight/heterosexual Current gender identity: male What is your relationship status?: living with partner Panel score (0-1 are the most socially isolated patients): 1 Do you feel safe at home: Yes Do you feel safe in your relationship?: Yes Additional Social history: Lives in [place] with . Parents on the same property. Grew up in the area. Meds Allergies and Home Medications Allergies Allergy/AdvReac Type Severity Reaction Status Date / Time codeine Allergy Mild SKIN RASH Verified 12/30/20 16:08 Home Medications Medication Instructions Recorded Confirmed Type albuterol sulfate 90 mcg/actuation 1 - 2 puff INHALATION Q4H PRN #1 04/08/20 12/14/20 Rx aerosol inhaler inhaler omeprazole 20 mg tablet,delayed 20 mg PO DAILY PRN #90 tab 07/27/20 01/20/21 Rx release metoprolol succinate 50 mg 50 mg PO DAILY #90 tab 09/21/20 01/20/21 Rx tablet,extended release 24 hr buprenorphine-naloxone [Suboxone] 1 tab SUBLINGUAL DAILY 12/14/20 01/20/21 History aspirin 81 mg tablet,delayed 81 mg PO DAILY #90 tab 12/30/20 01/20/21 Rx release atorvastatin 80 mg tablet 80 mg PO DAILY #90 tab 12/30/20 01/20/21 Rx lisinopril 5 mg tablet 5 mg PO DAILY #90 tab-cap 01/09/21 01/20/21 Rx Exam Narrative Exam Narrative: GEN: Alert and oriented, pleasent and cooperative, gives linear history. No acute distress at rest. HEENT: Head atraumatic. Conjunctiva clear, no icterus. PEERL, EOMI. No nystagmus. no rhinorrhea. MMM, OP benign. Neck is supple with no masses or lymphadenopathy, trachea midline. carotid pulse 2+ christiana, no bruits. LUNGS: Diffuse mild expiratory wheeze. No rales. Normal effort CV: RRR with no murmurs, gallops, or rubs. ABD: +BS, soft, NT/ND EXT: no cyanosis, clubbing, or edema MSK: No joint redness or swelling NEURO: CN 2-12 intact. DTRs equal and brisk 2+ christiana. Normal 5/5 strength and sensation to light touch of 4 extremities. Normal FNF and VINNY. Normal gait including tandem. No pronator drift. Normal speech. no tremor SKIN: No rashs or open wounds. PSYCH: normal mood and affect Results Imaging Additional studies: NSR, nl axis/intervals, no ischemic changes EKG: report reviewed and image reviewed Imaging Studies: CTA head/neck: 1. No high-grade stenosis, occluding thrombus, dissection or aneurysm within the intracranial circulation. 2. Remote infarct within the posteroinferior right cerebellar hemisphere evidence by encephalomalacia. Labs Result diagrams: 01/20/21 01:42 01/20/21 01:42 Labs: Laboratory Results - last 24 hr 01/20/21 01/20/21 01/20/21 01:42 01:42 01:45 WBC 10.97 H RBC 4.18 L Hgb 12.6 L Hct 38.4 L MCV 91.9 MCH 30.1 MCHC 32.8 RDW 12.5 Plt Count 315 MPV 9.6 Immature Gran % 0.3 Neutrophils % 57.9 Lymphocytes % 24.2 Monocytes % 11.1 Eosinophils % 5.9 Basophils % 0.6 Nucleated RBC % 0 Absolute Neutrophils 6.35 Absolute Lymphocytes 2.65 Absolute Monocytes 1.22 H Absolute Eosinophils 0.65 Absolute Basophils 0.07 PT 10.1 INR 1.0 APTT 24.8 Sodium 142 Potassium 3.6 Chloride 107 Carbon Dioxide 27.7 Anion Gap 7.3 BUN 14 Creatinine 0.9 Estimated GFR/1.73 m2 >= 60.00 Glucose 102 Calcium 8.9 Magnesium 1.6 L Total Bilirubin 0.5 AST 16 ALT 25 Alkaline Phosphatase 79 Total Protein 6.9 Albumin 3.4 COVID-19 Source SARS-CoV-2 (PCR) 01/20/21 03:10 WBC RBC Hgb Hct MCV MCH MCHC RDW Plt Count MPV Immature Gran % Neutrophils % Lymphocytes % Monocytes % Eosinophils % Basophils % Nucleated RBC % Absolute Neutrophils Absolute Lymphocytes Absolute Monocytes Absolute Eosinophils Absolute Basophils PT INR APTT Sodium Potassium Chloride Carbon Dioxide Anion Gap BUN Creatinine Estimated GFR/1.73 m2 Glucose Calcium Magnesium Total Bilirubin AST ALT Alkaline Phosphatase Total Protein Albumin COVID-19 Source Nasal/Nares SARS-CoV-2 (PCR) Negative Last Vital Signs Temp 36.5 C 01/20/21 03:49 Pulse 68 01/20/21 03:49 Resp 18 01/20/21 03:49 BP 98/65 L 01/20/21 03:49 Pulse Ox 96 01/20/21 03:49
[2021-01-20] MEDS: Enoxaparin 40 MG/0.4 ML SYR SC (09:16)
[2021-01-20] MEDS: Aspirin E.C. 81 MG TABEC PO (09:17)
[2021-01-20] MEDS: Metoprolol CR 50 MG TABCR PO (09:17)
--- NOTE | 2021-01-20 09:45 | IN_ITS ---
Date of service: 01/20/21 Time of Service: 09:45 PT Notes Visit Reasons: Vertigo Physical Therapy Inpatient Initial Evaluation Date: 02/07/2021 Referring Doctor: Al Mcnamara MD PT Orders: PT CONSULT: Fall safety assessment. Safety consult for D/C. History of cerebellar CVA with vertigo, admitted with recurrence of symptoms. Precautions: Fall. Standard. Activity as tolerated. Patient Profile/Admitting Diagnosis: Patient is a 55-year-old male with diagnosis of cerebellar stroke, vertigo, opioid dependence, hypertension and wheezing. PMHX: Medical History trial wellbutrin prn lorazepam GERD (gastroesophageal reflux disease) History of alcohol abuse Hyperlipidemia Hypertension Opioid dependence Smoker encouraged regular use of wellbutrin, both for mood and tobacco abuse Surgical History Arthroplasty 07/05/15; LEFT HIP;[facility] GASTROSCOPY 06/21/14- DR. NG Open Carpal Tunnel release RIGHT Repair of umbilical hernia Social History/Home Situation: Lives with family in a private home with 2 steps to enter with rails on both sides. Independent with all ADLs without an assistive device. Equipment Owned/DME: None Subjective: Patient reports feeling little better than he did when he first came. Still reports some mild fogginess in his vision.denies headache, chest pain, and dizziness throughout session. Hopeful that he can go home today. Agreeable to management of symptoms of vertigo using vestibular rehab. Objective: General Observation: Supine in bed. Mental Status: Alert and oriented as to person, place, time, and purpose. Able to pay attention, focus, and respond appropriately. Pain: 0/10 ROM: Right Upper Extremity: Shoulder Flexion WFL. Shoulder abduction WFL. Elbow flexion WFL. Wrist flexion WFL. Functional opening and closing of hand WFL. Left Upper Extremity: Shoulder Flexion WFL. Shoulder abduction WFL. Elbow flexion WFL. Wrist flexion WFL. Functional opening and closing of hand WFL. Right Lower Extremity: Hip flexion WFL. Hip abduction WFL. Knee flexion WFL. Ankle dorsiflexion WFL. Ankle plantarflexion WFL. Left Lower Extremity: Hip flexion WFL. Hip abduction WFL. Knee flexion WFL. Ankle dorsiflexion WFL. Ankle plantarflexion WFL. Strength: Right Upper Extremity: Shoulder flexors 5/5. Shoulder abductors 5/5. Elbow flexors 5/5. Elbow extensors 5/5. Belt Cutter strong. Left Upper Extremity: Shoulder flexors 5/5. Shoulder abductors 5/5. Elbow flexors 5/5. Elbow extensors 5/5. Belt Cutter strong. Right Lower Extremity: Hip flexors 5/5. Hip abductors 5/5. Knee flexors 5/5. Knee extensors 5/5. Ankle dorsiflexors 5/5. Ankle plantarflexors 5/5. Left Lower Extremity: Hip flexors 5/5. Hip abductors 5/5. Knee flexors 5/5. Knee extensors 5/5. Ankle dorsiflexors 5/5. Ankle plantarflexors 5/5. Bed Mobility/Transfers: Rolling with independent Supine to sit independent Sit to supine independent Sit to stand independent Stand to sit independent Reclining chair independent Gait: Instructed patient with level surface ambulation of 300 feet requiring no physical assistance. Gait pattern unremarkable. Balance: Static Sitting: Normal Dynamic Sitting: Normal Static Standing: Normal Dynamic Standing: Good Romberg Test: Minimal sway observed but no LOB. 4-stage Balance Test: Managed all positions for 10 seconds without any issues. Rapid alternating movement: No issues seen. No dysdiadockokinesia seen. Able to perform [id number] and heel to story without any issues. Special Tests: Mobility Limitations Standardized Measure [facility] AM-PAC 6 clicks Basic Mobility Inpatient Short Form: Raw Score: 24 CMS Score: 0% deficit Informed Consent/Education: Patient was instructed in purpose of PT consult and plan of care. Agreeable to proceed with established PT POC to achieve personal goals. Agreeable to initiation of gaze stabilization and habituation exercises for the session. Assessment: Strength symmetric in B sides. Coordination unimpaired. Reported mild fogginess but did not limit ability to complete ambulation assessment. Balance assessment unremarkable. Patient presents with clinical signs and symptoms consistent with current/admitting diagnoses that have resulted to mobility limitations, gait instability, generalized weakness, and overall ADL decline as demonstrated by the following impairment level findings: 1. Fogginess in vision Impairments are contributing to the following functional limitations: 1. Increased completion time for mobility ADL performance Patient is assessed [place] a 28169 low complexity based on the following: History: 55-year-old male with past medical history as indicated above Examination: Demonstrable impairment in strength, balance, and mobility level with underlying impairments and functional limitations as exhibited above as well as deficit score of 0% utilizing the [facility] Mobility Inpatient Short Form Presentation: Stable Decision Makin low complexity Goals: Goals X1 week 1. Independent gait on level surface with use of no assistive device for at least 500 feet without report of pain nor dyspnea 2. Independent stair negotiation while holding onto B rails for at least 3 steps without report of pain nor dyspnea 3. Independent with home exercise program with gaze stabilization and habituation exercises Plan of Care/Treatment Plan: 1-2x/day, 7 days/week x 1 week. Plan of care has been reviewed with the [employer] providing the service under Physical Therapy direction. Initiate Physical Therapy intervention for pain management as needed, strengthening, bed mobility, transfers, gait, stairs, balance training, and use of assistive device. DISCHARGE RECOMMENDATIONS: Outpatient PT services for continuation of vestibular rehab as needed. TREATMENT CODE/TIME: 24218 x 20 minutes, 97230 x 15 minutes beginning at 9:45 AM. Thank you for the opportunity to participate in the care of this patient. Salome Ivey PT, DPT, CLT [facility] [place], [place]
[2021-01-20] MEDS: Nicotine 21 MG/24 HR PATCH TD (10:27)
--- NOTE | 2021-01-20 11:13 | INITIAL_ITS ---
- If Service Date Differs Date of service: 01/20/21 Time of Service: 11:13 Care Management Initial Assess REASON FOR HOSPITALIZATION:: Vertigo PAST MEDICAL HISTORY/PAST SURGICAL HISTORY:: Anxiety (07/24/07). trial wellbutrin. prn lorazepam. GERD (gastroesophageal reflux disease). History of alcohol abuse. Hyperlipidemia. Hypertension. Opioid dependence. Smoker. encouraged regular use of wellbutrin, both for mood and tobacco abuse. Surgical History . Arthroplasty. 07/05/15; LEFT HIP;[facility]. GASTROSCOPY. 06/21/14- DR. NG. Open Carpal Tunnel release. RIGHT. Repair of umbilical hernia PREVIOUS FUNCTIONAL STATUS/SOCIAL/FAMILY SUPPORTS:: Andrew resides with his girlfriend and three year old child in [place], [place]. He is previously independent at baseline, though experienced a stroke recently and is having some residual issues. Currently, he is ambulating independently with standby assistance. CURRENT FUNCTIONAL STATUS:: Akash was sitting up on the side of the bed reviewing the menu with [place] from [employer]. He appeared pleasant in interaction. Has patient been provided with info about the portal/API?: Yes Did the patient sign up for the portal?: Yes (Previously ) CODE STATUS:: Full Code INSURANCE COVERAGE / FINANCIAL ISSUES:: Medicaid PRIMARY CARE PHYSICIAN:: Wenceslao Jimenez POTENTIAL DISCHARGE NEEDS:: Follow up appointments. PATIENT/FAMILY EDUCATION NEEDS:: Review discharge instructions, discuss Ask Me Three. ANTICIPATED BARRIERS TO DISCHARGE:: None identified at this time. TRANSPORTATION:: Via private vehicle with family. PLAN:: Anticipate Akash will return home with no additional services when ready per MD. He will follow up with his PCP and plan of care as prescribed. He will transport via private vehicle with his significant other, Rasheeda.
[2021-01-20 12:01] LABS: *AMPHETAMINES SCREEN URINE Negative (Negative); *BARBITURATES SCREEN URINE Negative (Negative); *BENZODIAZEPINES SCREEN URINE Negative (Negative); Cannabinoids THC Negative (Negative); Cocaine Screen,Urine Negative (Negative); METHADONE URINE SCREEN Negative (Negative); OPIATES URINE SCREEN Negative (Negative)
[2021-01-20 12:04] LABS: Tricyclic Antidepressants Negative (Negative)
--- NOTE | 2021-01-20 14:38 | PHA.REVIEW ---
Pharmacy Admission Review - Admission Clinical Review (Last Reviewed 01/20/21 @ 07:46 by Al Mcnamara) Wheezing (Acute) Opioid dependence (Acute) Discharge planning issues (Acute) DVT prophylaxis (Acute) Vertigo (Acute) Smoker (Acute) Cerebellar stroke (Acute) codeine Allergy (Mild, Verified 12/30/20 16:08) SKIN RASH Resuscitation Status Full Code Height 5 ft 10 in Weight 70.76 kg - Renal Dosing Renal Dosing: BUN 14 mg/dL (7-18) 01/20/21 01:42 Creatinine 0.9 mg/dL (0.70-1.30) 01/20/21 01:42 Medications needing adjustments: Reviewed List of meds needing interventions: eCrCl is 93 ml/min - Anticoagulation Anticoagulation: Hgb 12.6 g/dL (13.5-17.5) L 01/20/21 01:42 Hct 38.4 % (40.0-50.0) L 01/20/21 01:42 Plt Count 315 10^3/uL (130-400) 01/20/21 01:42 INR 1.0 (0.9-1.1) 01/20/21 01:45 Creatinine 0.9 mg/dL (0.70-1.30) 01/20/21 01:42 DVT Prophylaxis: Reviewed Medications: Enoxaparin - Opiate Usage Evaluate Pain Scale/Pains Meds: N/A (chronic suboxone) - Relevant Labs Sodium 142 mmol/L (136-145) 01/20/21 01:42 Potassium 3.6 mmol/L (3.5-5.1) 01/20/21 01:42 Chloride 107 mmol/L (98-107) 01/20/21 01:42 Magnesium 1.6 mg/dL (1.8-2.4) L 01/20/21 01:42 Electrolytes, C-Reactive P, ESR: Reviewed (2 grams IV mag infused @ 0200) - DM Control DM Control: Glucose 102 mg/dL (74-106) 01/20/21 01:42 Insulin Dosing: N/A - Heart Failure/[place] EF%, JELANI's, B-Blockers, Diuretics: N/A - BP Control BP Control: Blood Pressure 102/69 Blood Pressure 102/68 Blood Pressure 98/65 Blood Pressure 117/77 Blood Pressure 98/65 If elevated: Reviewed - Qtc Review If Elevated: Reviewed List meds needing interventions: QTc 429 - IV to PO Switch IV Medications: Reviewed - Home Meds Home Med List reviewed: Intervened Relevent Home Meds Not ordered & why?: lisinopril (low BPs), scopalamine; finalized med rec, added scopalamine patch and updated omeprazole sig
--- NOTE | 2021-01-20 16:41 | W.PM.DS.N ---
Date of service: 01/20/21 Time of Service: 16:41 DS: Diagnosis Discharge Diagnosis (1) Cerebellar stroke: Status: Acute (2) Vertigo: Status: Acute (3) Smoker: Status: Acute (4) Opioid dependence: Status: Acute (5) Hypertension: Status: Inactive (6) Wheezing: Status: Acute (7) DVT prophylaxis: Status: Acute (8) Discharge planning issues: Status: Acute Discharge Plan Disposition Patient Disposition: HOME Condition: Stable Discharge Details Reason For Visit: Vertigo Admit Date/Time: 01/20/21 03:04 Admit Provider: Al Mcnamara Attending Provider: Al Mcnamara Primary Care Provider: Wenceslao Jimenez Hospital Course Hospital Course: 55 yo M smoker with history of HTN and admission 12/14/20 for acute cerebellar CVA. 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 He has been taking ASA and atorvastatin since. This morning at about 1am he woke during a dream and had recurrence of same spinning/vertigo feeling he had with his first stroke. He saw dream-like scenes flashing in his vision and the room was spinning. The symptoms were the same but not as intense as the original stroke. He also had associated fecal urgency with loose stool, the same as the first time. He did not have LOC or incontinence. He had some nausea but no headache. He called 911 when these symptoms were not going away. More intense vertigo lasted about one hour, and he currently has mild vertigo when he moves his head. He did have a bad headache 3 days ago after doing yard work for a couple hours, but not since. He has had to limit physical labor since his stroke. He is monitoring his BP at home and running 120s/70s on metoprolol and lisinopril. Lab was unremarkable. BUN and creatinine normal. MRI of head showed previously noted areas of infarction in both cerebellar hemispheres are again noted, there is no diffusion restriction at this time to suggest acute or subacute infarction. Areas of increased signal noted on T2 weighted imaging are consistent with areas of recent or ongoing ischemia. T1 weighted imaging shows some linear areas of high signal at the borders of these areas also consistent with intermediate age infarction. Note is also made of patchy abnormal signal in periventricular white matter consistent with microvascular ischemic changes and a small focus of abnormal signals also seen in right thalamus consistent with lacunar infarcts. Of note on the MRA of the brain: The common, internal, and external carotid arteries show no evidence of aneurysm, significant stenosis, or dissection. There is minimal atheromatous plaque formation at the left carotid bifurcation. I would note that a previously described apparent narrowing of proximal left subclavian artery is less prominent on today's examination and the previous findings may represent flow artifact. The vertebral arteries are unremarkable in appearance in the cervical region with no evidence of aneurysm, stenosis, or dissection. His lisinopril is going to be held at this time; SBP 98 - 118 during this admission. He will continue to maintain records of his BP readings at home. Cont Aspirin. He has a f/u appt with Dr. Cardenas scheduled for 02/08/21. Home Meds and New Rx's Prescriptions: New atorvastatin 40 mg Tablet 80 mg PO QPM Qty: 0 RF: 0 omeprazole 20 mg Capsule,Delayed Release(Dr/Ec) 20 mg PO DAILY@0730 Qty: 0 RF: 0 Continued aspirin 81 mg tablet,delayed release (DR/EC) 81 mg PO DAILY Qty: 90 RF: 3 metoprolol succinate 50 mg tablet extended release 24 hr 50 mg PO DAILY Qty: 90 RF: 3 albuterol sulfate [ProAir HFA] 90 mcg/actuation HFA aerosol inhaler 1 - 2 puff Inhalation Q4H PRN Qty: 1 RF: 3 buprenorphine-naloxone 2-0.5 mg Tablet, Sublingual 1 tab SUBLINGUAL DAILY RF: 0 omeprazole 20 mg capsule,delayed release(DR/EC) 20 mg PO DAILY RF: 0 scopolamine base 1 mg over 3 days patch 3 day 1 mg transdermal Q72H RF: 0 Discontinued atorvastatin 80 mg tablet 80 mg PO DAILY Qty: 90 RF: 3 lisinopril 5 mg tablet 5 mg PO DAILY Qty: 90 RF: 3 Discharge Instructions Activity:: Activity as Tolerated Equipment/Supplies:: No Equipment Needed Diet:: Heart Healthy Discharge Orders Discharge Orders: Discharge Order (Routine); Ordered 01/20/21 Ordered By: John Rivera DS: Summary Time Spent with Patient providing and/or coordinating discharge services: Less than 30 minutes Status at Discharge Functional status at discharge: independent ambulation Overall status at discharge: patient is back to baseline Mental Status: mental status grossly normal Speech and Movement: speech and movement normal Mood: congruent mood Affect: normal affect Exam Const General: cooperative and no acute distress Nutritional Appearance: average body habitus Orientation: alert and oriented x3 HENMT Head: normocephalic Eyes General: appearance normal, both eyes and all related structures Sclera: sclerae normal Pupils: PERRL EOM: No nystagmus Resp Effort & Inspection: normal respiratory effort Auscultation: clear to auscultation bilaterally Cardio Rate: regular rate Rhythm: regular rhythm Heart Sounds: S1 normal and S2 normal Neuro General: no focal motor deficits Cranial Nerves: facial strength normal and no nystagmus Cognition: normal cognition Speech: speech normal Gait: normal gait Extrem General: no pedal edema and no calf tenderness Psych Mental Status: mental status grossly normal Speech and Movement: speech and movement normal Mood: congruent mood Affect: normal affect DS: Data Vitals/I&O Vitals and I&O: Vital Signs Temperature 36.3 C L 01/20/21 15:17 Temperature Source Tympanic 01/20/21 15:17 Pulse 698 H 01/20/21 15:17 Pulse Rhythm Regular 01/20/21 09:51 Respiratory Rate 17 01/20/21 15:17 Respiratory Effort 01/20/21 09:51 Respiratory Depth Normal 01/20/21 09:51 Respiratory Pattern Normal 01/20/21 09:51 Blood Pressure 105/67 01/20/21 15:17 Blood Pressure Mean 86 01/20/21 02:30 Pulse Oximetry 96 01/20/21 15:17 Oxygen Delivery Method Room Air 01/20/21 15:17 Oxygen Flow Rate 0 01/20/21 15:17 Pain Level 0 01/20/21 15:17 Intake & Output 01/19/21 01/20/21 01/20/21 23:59 11:59 23:59 Intake Total 350 / 590 240 / 590 Output Total 350 / 350 Balance 0 / 240 240 / 240 Weight 70.76 kg Intake: IV Oral 340 / 580 240 / 580 Output: Urine 350 / 350 Other: Urine Color Yellow Urine Appearance Clear Voiding Methods Urinal Data Completed and Pending Labs on day of discharge: Labs from last 24 hours 01/20/21 01/20/21 01/20/21 11:25 03:10 01:45 WBC RBC Hgb Hct MCV MCH MCHC RDW Plt Count MPV Immature Gran % Neutrophils % Lymphocytes % Monocytes % Eosinophils % Basophils % Nucleated RBC % Absolute Neutrophils Absolute Lymphocytes Absolute Monocytes Absolute Eosinophils Absolute Basophils PT 10.1 INR 1.0 APTT 24.8 Sodium Potassium Chloride Carbon Dioxide Anion Gap BUN Creatinine Estimated GFR/1.73 m2 Glucose Calcium Magnesium Total Bilirubin AST ALT Alkaline Phosphatase Total Protein Albumin Urine Opiates Screen Negative Urine Methadone Screen Negative Ur Barbiturates Screen Negative Ur Tricyclics Screen Negative Ur Amphetamines Screen Negative U Benzodiazepines Scrn Negative Urine Cocaine Screen Negative Ur THC Screen Negative COVID-19 Source Nasal/Nares SARS-CoV-2 (PCR) Negative 01/20/21 01/20/21 01:42 01:42 WBC 10.97 H RBC 4.18 L Hgb 12.6 L Hct 38.4 L MCV 91.9 MCH 30.1 MCHC 32.8 RDW 12.5 Plt Count 315 MPV 9.6 Immature Gran % 0.3 Neutrophils % 57.9 Lymphocytes % 24.2 Monocytes % 11.1 Eosinophils % 5.9 Basophils % 0.6 Nucleated RBC % 0 Absolute Neutrophils 6.35 Absolute Lymphocytes 2.65 Absolute Monocytes 1.22 H Absolute Eosinophils 0.65 Absolute Basophils 0.07 PT INR APTT Sodium 142 Potassium 3.6 Chloride 107 Carbon Dioxide 27.7 Anion Gap 7.3 BUN 14 Creatinine 0.9 Estimated GFR/1.73 m2 >= 60.00 Glucose 102 Calcium 8.9 Magnesium 1.6 L Total Bilirubin 0.5 AST 16 ALT 25 Alkaline Phosphatase 79 Total Protein 6.9 Albumin 3.4 Urine Opiates Screen Urine Methadone Screen Ur Barbiturates Screen Ur Tricyclics Screen Ur Amphetamines Screen U Benzodiazepines Scrn Urine Cocaine Screen Ur THC Screen COVID-19 Source SARS-CoV-2 (PCR) [facility] Medical History Anxiety (07/24/07) trial wellbutrin prn lorazepam GERD (gastroesophageal reflux disease) History of alcohol abuse Hyperlipidemia Hypertension Opioid dependence Smoker encouraged regular use of wellbutrin, both for mood and tobacco abuse Surgical History Arthroplasty 07/05/15; LEFT HIP;[facility] GASTROSCOPY 06/21/14- DR. NG Open Carpal Tunnel release RIGHT Repair of umbilical hernia Social History Smoking/Tobacco Use Status: Current every day Tobacco Type: cigarettes Smoking packs per day: 1 Smoking cigarettes per day: 20.0 Quit status: considering quitting Second Hand Exposure: Yes Counseling given: provider counseling and counseling >3 minutes Smoking risk assessment performed?: Yes Alcohol Intake: former Year quit: 2016 Details: reports stopped drinking 10/12/16 Drug use: Never Details: no recent drug use, on suboxone Caregiver/Support person: Yes Household members: spouse and children Housing: house Communication Needs: None Do you need help understanding health information?: Rarely current occupation: [employer] Pets and animals: Yes Pets and animals: cat(s) Do you think of yourself as: straight/heterosexual Current gender identity: male What is your relationship status?: living with partner Panel score (0-1 are the most socially isolated patients): 1 Do you feel safe at home: Yes Do you feel safe in your relationship?: Yes Additional Social history: Lives in [place] with GF. Parents on the same property. Grew up in the area.
[2021-01-20] MEDS: Scopolamine 1 MG/3 DAYS PATCH TD (18:49)
== END 2021-01-20 18:53 | disposition home or self-care (01) ==
LOC: ER 03:09 → MS 03:29
PROVIDERS: Admitting Provider Family Medicine; Emergency Provider Emergency Medicine; PCP Family Medicine; Visit Provider Family Medicine
DX: I67.89 Other cerebrovascular disease (principal); R42 Dizziness and giddiness; F17.210 Nicotine dependence, cigarettes, uncomplicated; F11.20 Opioid dependence, uncomplicated; I10 Essential (primary) hypertension; Z86.73 Personal history of transient ischemic attack (TIA), and cerebral infarction without residual deficits; F41.9 Anxiety disorder, unspecified; K21.9 Gastro-esophageal reflux disease without esophagitis; E78.5 Hyperlipidemia, unspecified; Z20.822 Contact with and (suspected) exposure to COVID-19
CPT/HCPCS: 36415; 70496; 70498; 80053; 80307; 87635; 93005; 96365; 97112; 97162; 99285; J1650; 70551; 83735; 85025; 85610; 85730; 93010; 99236; G0378; J3490

== ENCOUNTER 2021-10-06 01:49 | Outpatient (CLI) | payer MEDICAID, SELFPAY | END 2021-10-06 01:50 | disposition home or self-care (01) | LOC: LBO 01:49 | PROVIDERS: PCP Family Medicine; Visit Provider Family Medicine | DX: E83.42 Hypomagnesemia (principal) | CPT/HCPCS: 36415; 83735 ==

== ENCOUNTER → 2022-03-03 09:40 | Outpatient (CLI) | payer MEDICAID, SELFPAY ==
--- NOTE | 2022-03-03 09:45 | DI.RAD_ITS ---
Exam(s) XR KNEE LT 3V AP,LAT,YOJANA EXAM: XR KNEE LT 3V AP,LAT,YOJANA CLINICAL HISTORY: left knee pain and swelling. TECHNIQUE: 2D digital imaging was performed. Three views. COMPARISON: No exams were available for comparison FINDINGS: BONES: No acute fracture is present. No bony destructive lesion is seen. JOINTS: The knee is normally aligned. No joint effusion is seen. SOFT TISSUE: Normal. IMPRESSION: Normal radiographs of the left knee. DATA REPOSITORY: RADIATION DOSE DELIVERED:
--- NOTE | 2022-03-03 10:09 | DI.VRAD_ITS ---
PROCEDURE INFORMATION: Exam: XR Left Knee Exam date and time: 03/03/2022 9:57 AM Age: 56 years old Clinical indication: Other: Lt knee pain and swelling TECHNIQUE: Imaging protocol: Radiologic exam of the Left knee. Views: 3 views. COMPARISON: No relevant prior studies available. FINDINGS: Bones/joints: Normal. Soft tissues: Normal. IMPRESSION: No acute findings. Dictated and Authenticated by: Harsha Arauz MD. Ordering:CONI Gamboa MD
== END ==
PROVIDERS: PCP Physician Assistant; Visit Provider Physician Assistant
DX: M25.562 Pain in left knee (principal)
CPT/HCPCS: 73562

== ENCOUNTER 2022-03-28 10:47 | Outpatient (CLI) | payer MEDICAID, SELFPAY ==
[2022-03-28 12:49] LABS: HCT 41.9 % (40.0-50.0); HGB 14.1 g/dL (13.5-17.5); MCH 29.7 pg (27.0-33.0); MCHC 33.7 % (32.0-36.0); MCV 88 fL (80-95); MPV 10.2 fL (8.0-11.0); Platelet Count 275 10^3/uL (130-400); RBC 4.75 10^6/uL (4.36-5.78); RDW 13.1 % (11.8-14.1); RDW-SD 42.6 fL; WBC 7.17 10^3/uL (4.4-10.8)
[2022-03-28 12:53] LABS: ESR 12 mm/hr (0-20)
[2022-03-28 13:27] LABS: ALT 36 U/L (16-63); AST 31 U/L (15-37); Albumin 4.1 g/dL (3.4-5.0); Alkaline Phosphatase 72 U/L (46-116); Anion Gap 5.3 mmol/L (3-11); BUN 14 mg/dL (7-18); Bilirubin, Total 0.6 mg/dL (0.2-1.0); CO2 32.7 mmol/L (21.0-32.0); CREATININE 0.8 mg/dL (0.70-1.30); Calcium 9.2 mg/dL (8.5-10.1); Calculated LDL 60 mg/dL (<100); Chloride 104 mmol/L (98-107); Cholesterol 129 mg/dL (<200); Estimated GFR 104.51 (mL/min/1.73m2); Glucose 97 mg/dL (74-106); HDL Cholesterol 59 mg/dL (40-60); Potassium 4.1 mmol/L (3.5-5.1); Sodium 142 mmol/L (136-145); TSH (W/Ref FT4) 0.98 uIU/mL (0.36-3.74); Total Protein 7.5 g/dL (6.4-8.2); Triglyceride 50 mg/dL (<150); Vitamin B12 548 pg/mL (193-986)
[2022-03-28 13:36] LABS: C-Reactive Protein 0.28 mg/dL (0.0-0.3)
== END 2022-03-28 10:48 | disposition home or self-care (01) ==
LOC: LOS 10:48
PROVIDERS: PCP Family Medicine; Referring Provider Family Medicine; Visit Provider Family Medicine
DX: R53.83 Other fatigue (principal); E03.9 Hypothyroidism, unspecified; R41.89 Other symptoms and signs involving cognitive functions and awareness; G62.9 Polyneuropathy, unspecified; R10.9 Unspecified abdominal pain; E78.5 Hyperlipidemia, unspecified; D64.9 Anemia, unspecified
CPT/HCPCS: 36415; 80053; 80061; 85027; 85652; 82607; 84443; 86140

== ENCOUNTER 2022-06-16 11:49 | Inpatient (IN) | payer MEDICAID, SELFPAY ==
[2022-06-16] VITALS (67 sets, daily range): BP systolic 89–154; BP diastolic 42–89; PULSE 72–114; RESP 9–34; TEMP 36.7–37.1; O2SAT 85–100
--- NOTE | 2022-06-16 11:45 | RT.EKG_ITS ---
APPROVED REPORT Exam: Resting ECG Reason for Exam: dizzy, disoriented Patient Location: E HR:98 bpm ECG Measurements Heart Rate 98 AXIS AR 121 P 83 QRSd 113 QRS 84 QT 334 T 52 QTc 427 Conclusion Sinus rhythm...normal P axis, V-rate 60- 99 Right atrial enlargement...P>0.25mV 2 lds or<-0.24mV aVR/aVL Incomplete right bundle branch block...QRSd >112, terminal axis(90,270)
--- NOTE | 2022-06-16 12:15 | DI.CT_ITS ---
Exam(s) CT BRAIN NECK CTA EXAM: CT BRAIN NECK CTA CLINICAL HISTORY: dizzy, difficulty focussing, prior occipital cva. TECHNIQUE: Imaging Protocol: Axial CT angiography was performed with multi-slice acquisition and mu lti-planar and 3D reconstructions. CONTRAST MATERIAL: Intravenous: Omnipaque 350 Contrast volume:structured data in ml COMPARISON: CT CT BRAIN NECK CTA from 01/20/2021 FINDINGS: CT Head W/O and W contrast: Ventricles and Extra axial spaces: Normal in size and morphology for the patient's age. Hemorrhage: None. Cerebral parenchyma: Old bilateral cerebellar infarcts. No acute infarcts. Midline shift: None. Brainstem/Cerebellum: Normal. Calvarium: Normal. Visualized Paranasal sinuses/Mastoids: Opacification of several ethmoid sinuses. Soft Tissues: Unremarkable. Enhancement: Normal. CTA Brain W: Internal Carotid Arteries: Mild calcification but no stenosis. Middle Cerebral Arteries: Right: No aneurysm, occlusion or significant stenosis. Left: No aneurysm, occlusion or significant stenosis. Anterior Cerebral Arteries: Right: No aneurysm, occlusion or significant stenosis. Left: No aneurysm, occlusion or significant stenosis. Posterior cerebral Arteries: Right: No aneurysm, occlusion or significant stenosis. Left: No aneurysm, occlusion or significant stenosis. Vertebral Arteries: Right: No aneurysm, occlusion or significant stenosis. Left: No aneurysm, occlusion or significant stenosis. Basilar Artery: No aneurysm, occlusion or significant stenosis. CTA Neck W: Common Carotid: Right: No aneurysm, occlusion or significant stenosis. Left: No aneurysm, occlusion or significant stenosis. External Carotid: Right: No aneurysm, occlusion or significant stenosis. Left: No aneurysm, occlusion or significant stenosis. Internal Carotid: Right: No aneurysm, occlusion or significant stenosis. Left: Minimal calcific plaque. No aneurysm, occlusion or significant stenosis. Vertebral Artery: Right: No aneurysm, occlusion or significant stenosis. Left: No aneurysm, occlusion or significant stenosis. Lung Apices: Mild emphysematous changes. Bones: Degenerative changes in the cervical spine. Soft Tissues: Normal. IMPRESSION: 1. Normal CTA examination of the [place] of [place]. 2. Old bilateral cerebellar infarcts. No acute infarct. 3. CTA neck: Minimal calcific plaque. No significant stenosis. No evidence of dissection. RADIATION DOSE DELIVERED: 2,151.41mGy.cm Total DLP DATA REPOSITORY: All CT scans at this facility are submitted to the National Radiology Data Registry (NRDR) Dose Index Registry (DIR) with the [employer] (ACR). RADIATION OPTIMIZATION: All CT scans at this facility use at least one of these dose optimization te chniques: automated exposure control; mA and/or kV adjustment per patient size (includes targeted exa ms where dose is matched to clinical indication); or iterative reconstruction.
--- NOTE | 2022-06-16 12:30 | ED.GENADUL_ITS ---
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 Patient is saturating well and in no respiratory distress, hemodynamically stable on arrival. Patient has no focal neurologic deficits on exam and concerned with his subjective complaint and given his history there is potential for recurrent posterior circulation CVA. Plan to obtain CTA of the head and neck. -- CT and CTA of the brain and neck obtained and interpreted by radiology: No acute intracranial abnormality. Chronic bilateral cerebellar infarcts noted. No proximal large vessel stenosis or occlusion. -- EKG was reviewed and interpreted by me: Please see report: Sinus rhythm 98 bpm, normal axis, right atrial enlargement, incomplete right bundle branch block. --On reassessment patient now hypoxic in the upper 80s. Nasal cannula oxygen applied and now saturating in the low 90s. COVID testing was performed and positive. D-dimer is elevated. Consider pulmonary embolism as etiology for dizziness. I called radiology and confirmed that he could receive additional IV dye dose. Will obtain CTA of the chest. --We will initiate treatment with remdesivir 200 mg IV and Decadron 6 mg IV. I called and spoke with the hospitalist on-call, Dr. Woods, discussed ED presentation and course, he will admit the patient. Care transition at time of admission. -- CT of the chest was interpreted radiology: IMPRESSION: 1. No evidence of pulmonary embolism. 2. Mild bibasilar atelectasis. 3. Mild paraseptal emphysematous changes in the lung apices. Sign Out No HPI General Mode of arrival: ambulatory . Date/Time Provider Initiated Documentation: 06/16/22 12:14 . Limitations to Documentation: no limitations . Information obtained by: patient . HPI Narrative: 56-year-old male with history of CVA involving posterior circulation, here with chief complaint of dizziness. Patient notes symptoms started yesterday and have persisted. He notes dizziness was worse overnight. Symptoms worse with any movement. He has associated confusion. No associated headache. He does note that since he has been here he is feeling a little bit better. He denies associated numbness or weakness. No chest pain or shortness of breath. Related Data Home Medications Medication Instructions Recorded Confirmed metoprolol succinate 50 mg 50 mg PO DAILY #90 tabs 09/25/21 07/04/22 tablet,extended release 24 hr polyethylene glycol 3350 17 gram 17 g PO DAILY PRN constipation #30 10/11/21 07/04/22 oral powder packet (Miralax) ea atorvastatin 80 mg tablet 80 mg PO DAILY #90 tabs 01/18/22 07/04/22 albuterol sulfate 90 mcg/actuation 1 - 2 puff inhalation Q4H PRN ##1 03/19/22 06/22/22 aerosol inhaler (ProAir HFA) aspirin 81 mg tablet,delayed 81 mg PO DAILY #90 tabs 03/28/22 07/04/22 release omeprazole 20 mg capsule,delayed 20 mg PO DAILY #90 caps 03/28/22 07/04/22 release naproxen 500 mg tablet 500 mg PO BID PRN pain #60 tabs 05/30/22 07/04/22 albuterol sulfate 90 mcg/actuation 2 puff inhalation QID PRN 06/13/22 07/04/22 aerosol inhaler (Ventolin HFA) shortness of breath or wheezing #8.5 grams buprenorphine 2 mg-naloxone 0.5 mg 1.5 tab sublingual DAILY #42 tabs 07/02/22 07/04/22 sublingual tablet Previous Rx's Medication Instructions Recorded metoprolol succinate 50 mg 50 mg PO DAILY #90 tabs 09/25/21 tablet,extended release 24 hr polyethylene glycol 3350 17 gram 17 g PO DAILY PRN constipation #30 10/11/21 oral powder packet (Miralax) ea atorvastatin 80 mg tablet 80 mg PO DAILY #90 tabs 01/18/22 albuterol sulfate 90 mcg/actuation 1 - 2 puff inhalation Q4H PRN ##1 03/19/22 aerosol inhaler (ProAir HFA) aspirin 81 mg tablet,delayed 81 mg PO DAILY #90 tabs 03/28/22 release omeprazole 20 mg capsule,delayed 20 mg PO DAILY #90 caps 03/28/22 release naproxen 500 mg tablet 500 mg PO BID PRN pain #60 tabs 05/30/22 albuterol sulfate 90 mcg/actuation 2 puff inhalation QID PRN 06/13/22 aerosol inhaler (Ventolin HFA) shortness of breath or wheezing #8.5 grams buprenorphine 2 mg-naloxone 0.5 mg 1.5 tab sublingual DAILY #42 tabs 07/02/22 sublingual tablet Allergies Allergy/AdvReac Type Severity Reaction Status Date / Time codeine Allergy Mild SKIN RASH Verified 07/04/22 08:22 General Stated Complaint: Dizzy/Sync BRET: 3 Review of Systems All systems reviewed & are unremarkable except as noted in HPI and below Constitutional Constitutional: Denies fever(s) Neurologic Neurologic: Reports as per HPI PFSH All Active Problems (Updated 06/21/22 @ 00:05 by JEANCARLOS JOHNSON) Tobacco dependence (Acute) COVID-19 (Acute) Low back pain (Acute) Neuropathy (Acute) Sensorineural hearing loss of both ears (Acute) Tinnitus, bilateral (Acute) Encounter for screening colonoscopy (Acute) Constipation (Acute) Addiction (Acute) Alcoholism (Chronic) stable not drinking Low blood pressure (Acute) Wheezing (Acute) Vertigo (Acute) Subclavian artery stenosis, right (Acute) Vertigo (Acute) Anxiety (Chronic 07/24/07) trial wellbutrin prn lorazepam Smoker (Acute) encouraged regular use of wellbutrin, both for mood and tobacco abuse Nausea & vomiting (Acute) Cubital tunnel syndrome on left (Acute) Carpal tunnel syndrome of left wrist (Acute) Encounter for screening colonoscopy (Acute) Hyperlipidemia (Acute) History of gastroscopy (Acute 06/21/14) History of total left hip replacement (Acute 07/05/15) History of umbilical hernia repair (Acute) Status post carpal tunnel release (Acute) Anxiety disorder (Chronic) Polyuria (Acute) Traumatic dislocation of shoulder region (Acute) left shoulder separation Shoulder pain (Acute) right shoulder impingement Rotator cuff syndrome (Acute) left Prostatitis (Acute) Generalized osteoarthrosis (Acute) mild DJD left hip Essential hypertension with goal blood pressure less than 140/90 (Acute 01/03/16) Elev transaminase/LDH (Acute 03/01/09) Depressive disorder (Acute) opiate addiction Medical History GERD (gastroesophageal reflux disease) History of alcohol abuse Hypertension Surgical History Arthroplasty 07/05/15; LEFT HIP;[facility] GASTROSCOPY 06/21/14- DR. NG Open Carpal Tunnel release RIGHT Repair of umbilical hernia S/P foot surgery S/P rotator cuff repair Social History Smoking/Tobacco Use Status: Current every day Tobacco Type: cigarettes Quit status: considering quitting Second Hand Exposure: Yes Counseling given: provider counseling and counseling >3 minutes Smoking risk assessment performed?: Yes Alcohol Intake: former Year quit: 2016 Details: reports stopped drinking 10/12/16 Drug use: Current Sobriety Details: no recent drug use, on suboxone Caregiver/Support person: Yes Household members: spouse and children Housing: house Communication Needs: None Do you need help understanding health information?: Rarely current occupation: [employer] Pets and animals: Yes Pets and animals: cat(s) Do you think of yourself as: straight/heterosexual Current gender identity: male What is your relationship status?: living with partner Panel score (0-1 are the most socially isolated patients): 1 Do you feel safe at home: Yes Do you feel safe in your relationship?: Yes Additional Social history: Lives in [place] with . Parents on the same property. Grew up in the area. Exam Const General: cooperative and no acute distress HENMT Mouth: moist mucous membranes Eyes Conjunctivae: normal conjunctivae Sclera: normal sclerae Neck Neck: trachea midline and supple Resp Auscultation: clear to auscultation bilaterally, no rales, no rhonchi and no wheezes Cardio Rate: regular rate and not tachycardic Rhythm: regular rhythm GI Palpation: soft, not firm, no guarding, no masses, not rigid and nontender Skin General skin exam: no rashes or lesions noted Neuro General: patient alert, patient awake, patient oriented x3 and tone normal Cranial Nerves: CN's II-XI intact bilaterally Cognition: normal cognition Speech: speech normal Motor: strength 5/5 throughout Sensory Exam: no sensory deficits noted Coordination: [id number] test normal, [id number] test normal, Romberg test normal and other (Normal rapid alternating movements) Extrem General: no edema Psych Appearance: grossly normal Mental Status: mental status grossly normal Course Vital Signs Vital signs: Vital Signs Temperature 37.1 C 06/16/22 12:01 Pulse 97 H 06/16/22 12:01 Respiratory Rate 18 06/16/22 12:01 Blood Pressure 154/89 H 06/16/22 12:01 Pulse Oximetry 95 06/16/22 12:01 Temperature 37.1 C 06/16/22 12:01 Temperature Source Temporal Artery Scan 06/16/22 12:01 Pulse 97 H 06/16/22 12:01 Respiratory Rate 18 06/16/22 12:01 Respiratory Effort Non-Labored 06/16/22 12:04 Blood Pressure 154/89 H 06/16/22 12:01 Blood Pressure Position Sitting 06/16/22 12:01 Pulse Oximetry 95 06/16/22 12:01 Oxygen Delivery Method Room Air 06/16/22 12:01 Oxygen Flow Rate 0 06/16/22 12:01
[2022-06-16 12:55] LABS: Abs Immature Grans 0.01 10^3/uL (0.0-0.06); Absolute Basophil Count 0.03 10^3/uL (0.0-0.2); Absolute Eosinophil Count 0.03 10^3/uL (0.0-0.7); Absolute Lymphocyte Count 0.34 10^3/uL (1.2-3.4); Absolute Monocyte Count 1.14 10^3/uL (0.1-0.8); Absolute Neutrophil Count 4.34 10^3/uL (1.2-6.7); Basophils % 0.5; Eosinophils % 0.5; HCT 44.1 % (40.0-50.0); HGB 14.4 g/dL (13.5-17.5); Immature Grans % 0.2; Lymphocytes % 5.8; MCH 29.8 pg (27.0-33.0); MCHC 32.7 % (32.0-36.0); MCV 91 fL (80-95); MPV 9.5 fL (8.0-11.0); Monocytes % 19.4; Neutrophils % 73.6; Platelet Count 225 10^3/uL (130-400); RBC 4.83 10^6/uL (4.36-5.78); RDW 13.1 % (11.8-14.1); RDW-SD 44.1 fL; WBC 5.89 10^3/uL (4.4-10.8)
[2022-06-16 13:07] LABS: ALT 39 U/L (16-63); AST 33 U/L (15-37); Albumin 4.1 g/dL (3.4-5.0); Alkaline Phosphatase 73 U/L (46-116); Anion Gap 4.6 mmol/L (3-11); BUN 13 mg/dL (7-18); Bilirubin, Total 0.5 mg/dL (0.2-1.0); CO2 31.4 mmol/L (21.0-32.0); Calcium 8.9 mg/dL (8.5-10.1); Chloride 100 mmol/L (98-107); Estimated GFR 88.88 (mL/min/1.73m2); Glucose 138 mg/dL (74-106); Magnesium 1.8 mg/dL (1.8-2.4); Potassium 3.7 mmol/L (3.5-5.1); Sodium 136 mmol/L (136-145); Total Protein 7.8 g/dL (6.4-8.2); Troponin I < 50 ng/L (<or=60)
[2022-06-16] MEDS: Normal Saline - Diluent 50 ML VIAL IV ×2 (13:26→16:09)
[2022-06-16] MEDS: Omnipaque 350 MG/ML 500 ML BTL-Imaging package IJ ×2 (13:29→16:11)
--- NOTE | 2022-06-16 14:26 | DI.VRAD_ITS ---
Addendum created by Luisana Abraham MD on 06/16/2022 2:56:15 PM EST: Brain: No acute infarction. No intracranial hemorrhage. No mass effect or midline shift. Chronic bilateral cerebellar infarcts. Cerebral ventricles: No ventriculomegaly. Bones/joints: Unremarkable. No acute fracture. Soft tissues: Unremarkable. IMPRESSION: No acute intracranial abnormality. Chronic bilateral cerebellar infarcts. Initial report created on 06/16/2022 2:26:26 PM EST: PROCEDURE INFORMATION: Exam: CTA Head With Contrast, Arteriography Exam date and time: 06/16/2022 1:27 PM Age: 56 years old Clinical indication: Dizziness and giddiness TECHNIQUE: Imaging protocol: Computed tomographic angiography of the head with contrast. Exam focused on the arteries. 3D rendering (Not supervised by radiologist): MIP and/or 3D reconstructed images were created by the technologist. Radiation optimization: All CT scans at this facility use at least one of these dose optimization techniques: automated exposure control; mA and/or kV adjustment per patient size (includes targeted exams where dose is matched to clinical indication); or iterative reconstruction. Contrast material: OMNIPAQUE 350; Contrast volume: 115 ml; Contrast route: INTRAVENOUS (IV); COMPARISON: CT BRAIN NECK CTA 01/20/2021 1:55 AM FINDINGS: ANTERIOR CIRCULATION: Right internal carotid artery: Calcifications at the right internal carotid artery. No significant stenosis or occlusion. Right middle cerebral artery: No occlusion or significant stenosis. No aneurysm. Right anterior cerebral artery: No occlusion or significant stenosis. No aneurysm. Left internal carotid artery: Calcifications at the left internal carotid artery. No significant stenosis or occlusion. Left middle cerebral artery: No occlusion or significant stenosis. No aneurysm. Left anterior cerebral artery: No occlusion or significant stenosis. No aneurysm. POSTERIOR CIRCULATION: Right vertebral artery: No occlusion or significant stenosis. No aneurysm. Left vertebral artery: No occlusion or significant stenosis. No aneurysm. Basilar artery: No occlusion or significant stenosis. No aneurysm. Right posterior cerebral artery: No occlusion or significant stenosis. No aneurysm. Left posterior cerebral artery: No occlusion or significant stenosis. No aneurysm. Brain: No acute infarction. No intracranial hemorrhage. No mass effect or midline shift. Chronic bilateral cerebellar infarcts. Cerebral ventricles: No ventriculomegaly. Bones/joints: Unremarkable. No acute fracture. Soft tissues: Unremarkable. IMPRESSION: No acute intracranial abnormality. Chronic bilateral cerebellar infarcts. No proximal large vessel stenosis or occlusion. PROCEDURE INFORMATION: Exam: CTA Neck With Contrast Exam date and time: 06/16/2022 1:27 PM Age: 56 years old Clinical indication: Dizziness and giddiness TECHNIQUE: Imaging protocol: Computed tomographic angiography of the neck with contrast. 3D rendering (Not supervised by radiologist): MIP and/or 3D reconstructed images were created by the technologist. Contrast material: OMNIPAQUE 350; Contrast volume: 115 ml; Contrast route: INTRAVENOUS (IV); COMPARISON: CT BRAIN NECK CTA 01/20/2021 1:55 AM FINDINGS: Right common carotid artery: No stenosis. No dissection or occlusion. Right internal carotid artery: Atherosclerotic disease, without significant proximal right internal carotid artery stenosis by NASCET criteria. Right external carotid artery: No occlusion or stenosis of the origin. Left common carotid artery: No stenosis. No dissection or occlusion. Left internal carotid artery: Atherosclerotic disease, without significant proximal left internal carotid artery stenosis by NASCET criteria. Left external carotid artery: No occlusion or stenosis of the origin. Right vertebral artery: No stenosis. No dissection or occlusion. Left vertebral artery: No stenosis. No dissection or occlusion. Soft tissues: No significant soft tissue swelling. Bones/joints: No acute fracture. Lungs: The visualized lung apex is clear. IMPRESSION: No stenosis or occlusion. REFERENCES: NASCET CRITERIA. The degree of stenosis in the cervical segment of the internal carotid artery is based on NASCET criteria. Normal is no stenosis. Mild is less than 50% stenosis. Moderate is 50-69% stenosis. Severe is 70% to 99% stenosis. Total occlusion is no detectable patent lumen. Dictated and Authenticated by: Luisana Abraham MD. Ordering:NEGRO Metz MD
[2022-06-16 15:11] LABS: Source Nasal/Nares
[2022-06-16 15:38] LABS: D-Dimer 807 ng/mlFEU (<500)
[2022-06-16 15:47] LABS: COVID-19 PCR POSITIVE (Negative)
--- NOTE | 2022-06-16 16:00 | DI.CT_ITS ---
Exam(s) CT CHEST PE CTA EXAM: CT CHEST PE CTA CLINICAL HISTORY: hypoxia, dizzy, covid positive. TECHNIQUE: Imaging Protocol: Axial CT angiography was performed with multi-slice acquisition and mu lti-planar reconstructions as well as axial, coronal and sagittal MIP reconstructions. CONTRAST MATERIAL: Intravenous: Omnipaque 350 Contrast volume:80 ml COMPARISON: CT CT BRAIN NECK CTA from 06/16/2022 FINDINGS: Pulmonary Arteries: No evidence of filling defect to suggest pulmonary emboli. Tracheobronchial tree: Patent where visualized. Mediastinum and Reina: No dominant adenopathy or fluid collection. Pulmonary parenchyma: Mild emphysematous changes upper lobes. No consolidation or dominant measurabl e mass. Pleura: No effusion or pneumothorax. Heart: The heart is not dilated. No coronary artery calcifications are seen. Aorta: Thoracic aorta non-dilated. No aneurysm. No dissection. Upper abdomen: Unremarkable. Bones: Degenerative changes and Schmorl's nodes. IMPRESSION: No evidence of pulmonary embolism. Mild emphysematous changes. No infiltrates. RADIATION DOSE DELIVERED: 328.41mGy.cm Total DLP DATA REPOSITORY: All CT scans at this facility are submitted to the National Radiology Data Registry (NRDR) Dose Index Registry (DIR) with the [employer] (ACR). RADIATION OPTIMIZATION: All CT scans at this facility use at least one of these dose optimization te chniques: automated exposure control; mA and/or kV adjustment per patient size (includes targeted exa ms where dose is matched to clinical indication); or iterative reconstruction.
[2022-06-16] MEDS: Normal Saline Flush 10 ML SYR IVP ×4 (16:04→18:22)
[2022-06-16] MEDS: Lactated Ringers 500 ML IV (16:37)
--- NOTE | 2022-06-16 16:39 | DI.VRAD_ITS ---
PROCEDURE INFORMATION: Exam: CTA Chest With Contrast Exam date and time: 06/16/2022 4:13 PM Age: 56 years old Clinical indication: Other: Hypoxia, dizzy, covid+; Additional info: Hypoxia, dizzy, covid+ TECHNIQUE: Imaging protocol: Computed tomographic angiography of the chest with contrast. 3D rendering (Not supervised by radiologist): MIP and/or 3D reconstructed images were created by the technologist. Contrast material: OMNIPAQUE 350; Contrast volume: 80 ml; Contrast route: INTRAVENOUS (IV); COMPARISON: CT BRAIN NECK CTA 06/16/2022 1:27 PM FINDINGS: Pulmonary arteries: No filling defect within the pulmonary arteries. Normal size of the main pulmonary artery. Great vessels off aortic arch: Streak artifact versus proximal mild proximal left subclavian artery stenosis. Aorta: No aortic aneurysm. No aortic dissection. Thyroid: Unremarkable. Lungs: Mild bibasilar atelectasis. No consolidation. Mild paraseptal emphysematous changes in the lung apices. Pleural spaces: Unremarkable. No pneumothorax. No pleural effusion. Heart: Unremarkable. No cardiomegaly. No pericardial effusion. Lymph nodes: Unremarkable. No enlarged lymph nodes. Bones/joints: Degenerative changes of the thoracic spine. Soft tissues: Unremarkable. IMPRESSION: 1. No evidence of pulmonary embolism. 2. Mild bibasilar atelectasis. 3. Mild paraseptal emphysematous changes in the lung apices. Dictated and Authenticated by: Luisana Abraham MD. Ordering:NEGRO Metz MD
--- NOTE | 2022-06-16 17:23 | W.PM.HP.N ---
Date of service: 06/16/22 Time of Service: 17:24 Assessment and Plan Assessment and plan (1) COVID-19: Status: Acute Assessment and plan: tested covid positive in ED, now with oxygen requirements, wean as able admit to med/surg continue remdesivir and decadron (2) Cerebellar stroke: Status: Chronic Assessment and plan: no evidence of new cva. CTA head and neck negative, neuro exam negative. continue asa and statin consider MRI, symptoms most likely d/t covid infection (3) Opioid dependence: Status: Acute Assessment and plan: continue home medication (4) Tobacco dependence: Status: Acute Assessment and plan: nicotine replacement while hospitalized. (5) DVT prophylaxis: Status: Acute Assessment and plan: enoxaparin daily teds (6) Discharge planning issues: Status: Acute Assessment and plan: anticipate home when weaned off oxygen discussed with DR Woods History of Present Illness History of Present Illness Chief Complaint: dizziness Narrative: presents to the ED with c/o dizziness he reports similar to his history of CVA. started feeling his symptoms yesterday. denies fever or cough or chest pain. states is vaccinated but not boosted for covid. denies known contacts. neuro exam and CTA of head and neck are unremarkable. He was re-examined and noted to be hypoxic into the 80's with c/o SOB. there was no cough or fever. covid test came back as positive. he was started on remdesivir and decadron and will be admitted for hypoxic resp failure d/t covid. Review of Systems Constitutional Constitutional: Reports system reviewed and no additional complaints, except as documented Eyes Eyes: Denies loss of vision ENT Ears, Nose, Mouth, and Throat: Reports dizziness Cardiovascular Cardiovascular: Denies syncope and Reports dyspnea Respiratory Respiratory: Denies chest congestion, Denies cough and Reports dyspnea Musculoskeletal Musculoskeletal: Denies abnormal gait Neurologic Neurologic: Denies abnormal speech, Denies abnormal gait, Reports dizziness, Denies syncope, Denies lack of coordination, Denies localized weakness, Denies loss of vision and Denies convulsions PFSH All Active Problems (Updated 06/16/22 @ 17:54 by Holly Cramer NP) Tobacco dependence (Acute) COVID-19 (Acute) Low back pain (Acute) Neuropathy (Acute) Sensorineural hearing loss of both ears (Acute) Tinnitus, bilateral (Acute) Encounter for screening colonoscopy (Acute) Constipation (Acute) Addiction (Acute) Alcoholism (Chronic) stable not drinking Cerebellar stroke (Chronic) Low blood pressure (Acute) Wheezing (Acute) Opioid dependence (Acute) Discharge planning issues (Acute) DVT prophylaxis (Acute) Vertigo (Acute) Subclavian artery stenosis, right (Acute) Vertigo (Acute) Anxiety (Chronic 07/24/07) trial wellbutrin prn lorazepam Smoker (Acute) encouraged regular use of wellbutrin, both for mood and tobacco abuse Nausea & vomiting (Acute) Cubital tunnel syndrome on left (Acute) Carpal tunnel syndrome of left wrist (Acute) Encounter for screening colonoscopy (Acute) Hyperlipidemia (Acute) History of gastroscopy (Acute 06/21/14) History of total left hip replacement (Acute 07/05/15) History of umbilical hernia repair (Acute) Status post carpal tunnel release (Acute) Anxiety disorder (Chronic) Polyuria (Acute) Traumatic dislocation of shoulder region (Acute) left shoulder separation Shoulder pain (Acute) right shoulder impingement Rotator cuff syndrome (Acute) left Prostatitis (Acute) Generalized osteoarthrosis (Acute) mild DJD left hip Essential hypertension with goal blood pressure less than 140/90 (Acute 01/03/16) Elev transaminase/LDH (Acute 03/01/09) Depressive disorder (Acute) opiate addiction Medical History GERD (gastroesophageal reflux disease) History of alcohol abuse Hypertension Surgical History Arthroplasty 07/05/15; LEFT HIP;[facility] GASTROSCOPY 06/21/14- DR. NG Open Carpal Tunnel release RIGHT Repair of umbilical hernia S/P foot surgery S/P rotator cuff repair Social History Smoking/Tobacco Use Status: Current every day Tobacco Type: cigarettes Quit status: considering quitting Second Hand Exposure: Yes Counseling given: provider counseling and counseling >3 minutes Smoking risk assessment performed?: Yes Alcohol Intake: former Year quit: 2016 Details: reports stopped drinking 10/12/16 Drug use: Current Sobriety Details: no recent drug use, on suboxone Caregiver/Support person: Yes Household members: spouse and children Housing: house Communication Needs: None Do you need help understanding health information?: Rarely current occupation: [employer] Pets and animals: Yes Pets and animals: cat(s) Do you think of yourself as: straight/heterosexual Current gender identity: male What is your relationship status?: living with partner Panel score (0-1 are the most socially isolated patients): 1 Do you feel safe at home: Yes Do you feel safe in your relationship?: Yes Additional Social history: Lives in [place] with GF. Parents on the same property. Grew up in the area. Meds Allergies and Home Medications Allergies Allergy/AdvReac Type Severity Reaction Status Date / Time codeine Allergy Mild SKIN RASH Verified 06/16/22 15:21 Home Medications Medication Instructions Recorded Confirmed Type metoprolol succinate 50 mg 50 mg PO DAILY #90 tabs 09/25/21 06/16/22 Rx tablet,extended release 24 hr polyethylene glycol 3350 17 gram 17 g PO DAILY PRN constipation #30 10/11/21 06/16/22 Rx oral powder packet (Miralax) ea gabapentin 100 mg capsule 100 mg PO BID #60 caps 01/03/22 06/16/22 Rx atorvastatin 80 mg tablet 80 mg PO DAILY #90 tabs 01/18/22 06/16/22 Rx albuterol sulfate 90 mcg/actuation 1 - 2 puff inhalation Q4H PRN ##1 03/19/22 06/16/22 Rx aerosol inhaler (ProAir HFA) aspirin 81 mg tablet,delayed 81 mg PO DAILY #90 tabs 03/28/22 06/16/22 Rx release omeprazole 20 mg capsule,delayed 20 mg PO DAILY #90 caps 03/28/22 06/16/22 Rx release buprenorphine 2 mg-naloxone 0.5 mg 1.5 tab sublingual DAILY #42 tabs 05/30/22 06/16/22 Rx sublingual tablet naproxen 500 mg tablet 500 mg PO BID PRN pain #60 tabs 05/30/22 06/16/22 Rx naproxen 500 mg tablet 500 mg PO BID PRN pain #60 tabs 05/30/22 06/16/22 Rx albuterol sulfate 90 mcg/actuation 2 puff inhalation QID PRN 06/13/22 06/16/22 Rx aerosol inhaler (Ventolin HFA) shortness of breath or wheezing #8.5 grams Exam Const General: cooperative, no acute distress and ill appearing chronically Nutritional Appearance: average body habitus Orientation: alert, awake and oriented x3 HENMT Head: normal to inspection, normocephalic and atraumatic Mouth: oral mucosae normal Chest Chest: normal inspection of the chest Resp Effort & Inspection: normal respiratory effort Auscultation: diminished lung sounds and rhonchi (bases bilateral, ) Cardio Rate: regular rate Rhythm: regular rhythm Heart Sounds: no murmurs GI Inspection: normal to inspection Palpation: soft Skin General skin exam: no rashes or lesions noted Neuro General: patient alert, patient awake, patient oriented x3 and no focal motor deficits Cognition: normal cognition Speech: speech normal Motor: muscle tone normal throughout Extrem General: normal to inspection, full ROM and no pedal edema Psych Mental Status: mental status grossly normal Speech and Movement: speech and movement normal Mood: congruent mood Affect: normal affect Attitude: cooperative Thought Process: normal Thought Content: normal Insight: insight good Judgment: judgment good Results Labs Result diagrams: 06/16/22 12:30 06/16/22 12:30 Labs: Laboratory Results - last 24 hr 06/16/22 06/16/22 06/16/22 12:30 12:30 12:30 WBC 5.89 RBC 4.83 Hgb 14.4 Hct 44.1 MCV 91 MCH 29.8 MCHC 32.7 RDW 13.1 Plt Count 225 MPV 9.5 Immature Gran % 0.2 Neutrophils % 73.6 Lymphocytes % 5.8 Monocytes % 19.4 Eosinophils % 0.5 Basophils % 0.5 Nucleated RBC % 0.0 Absolute Neutrophils 4.34 Absolute Lymphocytes 0.34 L Absolute Monocytes 1.14 H Absolute Eosinophils 0.03 Absolute Basophils 0.03 D-Dimer 807 H Sodium 136 Potassium 3.7 Chloride 100 Carbon Dioxide 31.4 Anion Gap 4.6 BUN 13 Creatinine 1.0 Est GFR (CKD-EPI 2020) 88.88 Glucose 138 H Calcium 8.9 Magnesium 1.8 Total Bilirubin 0.5 AST 33 ALT 39 Alkaline Phosphatase 73 Troponin I < 50 Total Protein 7.8 Albumin 4.1 COVID-19 Source SARS-CoV-2 (PCR) 06/16/22 15:05 WBC RBC Hgb Hct MCV MCH MCHC RDW Plt Count MPV Immature Gran % Neutrophils % Lymphocytes % Monocytes % Eosinophils % Basophils % Nucleated RBC % Absolute Neutrophils Absolute Lymphocytes Absolute Monocytes Absolute Eosinophils Absolute Basophils D-Dimer Sodium Potassium Chloride Carbon Dioxide Anion Gap BUN Creatinine Est GFR (CKD-EPI 2020) Glucose Calcium Magnesium Total Bilirubin AST ALT Alkaline Phosphatase Troponin I Total Protein Albumin COVID-19 Source Nasal/Nares SARS-CoV-2 (PCR) POSITIVE A* Last Vital Signs Temp 37.1 C 06/16/22 12:01 Pulse 83 06/16/22 16:30 Resp 17 06/16/22 16:31 BP 115/62 06/16/22 16:30 Pulse Ox 97 06/16/22 16:31
[2022-06-16 18:01] LABS: C-Reactive Protein 2.56 mg/dL (0.0-0.3)
[2022-06-16] MEDS: Dexamethasone 10 MG/ML VIAL 6 MG IVP (18:22)
[2022-06-16] MEDS: Atorvastatin 40 MG TAB 80 MG PO (21:47)
[2022-06-16] MEDS: REMDESIVIR 200 MG in Normal Saline 250 ML 250 MG IVPB (21:49)
[2022-06-16] MEDS: Water,Injection,Sterile 10 ML VIAL (22:13)
[2022-06-17 08:10] LABS: Abs Immature Grans 0.01 10^3/uL (0.0-0.06); Absolute Basophil Count 0.01 10^3/uL (0.0-0.2); Absolute Lymphocyte Count 1.12 10^3/uL (1.2-3.4); Absolute Monocyte Count 0.69 10^3/uL (0.1-0.8); Absolute Neutrophil Count 3.24 10^3/uL (1.2-6.7); Basophils % 0.2; HCT 44.4 % (40.0-50.0); HGB 14.4 g/dL (13.5-17.5); Immature Grans % 0.2; Lymphocytes % 22.1; MCH 29.4 pg (27.0-33.0); MCHC 32.4 % (32.0-36.0); MCV 91 fL (80-95); MPV 9.7 fL (8.0-11.0); Monocytes % 13.6; Neutrophils % 63.9; Platelet Count 196 10^3/uL (130-400); RDW-SD 43.8 fL; WBC 5.07 10^3/uL (4.4-10.8)
[2022-06-17 08:21] LABS: ALT 35 U/L (16-63); AST 35 U/L (15-37); Albumin 3.3 g/dL (3.4-5.0); Alkaline Phosphatase 62 U/L (46-116); Anion Gap 4.1 mmol/L (3-11); BUN 14 mg/dL (7-18); Bilirubin, Total 0.4 mg/dL (0.2-1.0); CO2 33.9 mmol/L (21.0-32.0); CREATININE 0.7 mg/dL (0.70-1.30); Calcium 8.5 mg/dL (8.5-10.1); Chloride 103 mmol/L (98-107); Estimated GFR 108.82 (mL/min/1.73m2); Glucose 95 mg/dL (74-106); Potassium 4.1 mmol/L (3.5-5.1); Sodium 141 mmol/L (136-145); Total Protein 6.5 g/dL (6.4-8.2)
[2022-06-17 08:56] VITALS: BP 117/72; PULSE 69; RESP 17; TEMP 36.4; O2SAT 95
[2022-06-17] MEDS: Enoxaparin 40 MG/0.4 ML SYR SC (09:02)
[2022-06-17] MEDS: Normal Saline Flush 10 ML SYR IVP (09:03)
[2022-06-17] MEDS: Dexamethasone 4 MG TAB 6 MG PO (09:04)
[2022-06-17] MEDS: Omeprazole 20 MG CAPCR PO (09:05)
[2022-06-17] MEDS: Metoprolol CR 50 MG TABCR PO (09:05)
[2022-06-17] MEDS: Aspirin E.C. 81 MG TABEC PO (09:06)
--- NOTE | 2022-06-17 09:51 | W.PM.PROGNOT ---
Date of Service Date of service: 06/17/22 Time of Service: 09:51 Objective Last Vital Signs Temp 36.4 C L 06/17/22 08:56 Pulse 69 06/17/22 08:56 Resp 17 06/17/22 08:56 BP 117/72 06/17/22 08:56 Pulse Ox 95 06/17/22 08:56 Laboratory Results - last 24 hr 06/16/22 06/16/22 06/16/22 12:30 12:30 12:30 WBC 5.89 RBC 4.83 Hgb 14.4 Hct 44.1 MCV 91 MCH 29.8 MCHC 32.7 RDW 13.1 Plt Count 225 MPV 9.5 Immature Gran % 0.2 Neutrophils % 73.6 Lymphocytes % 5.8 Monocytes % 19.4 Eosinophils % 0.5 Basophils % 0.5 Nucleated RBC % 0.0 Absolute Neutrophils 4.34 Absolute Lymphocytes 0.34 L Absolute Monocytes 1.14 H Absolute Eosinophils 0.03 Absolute Basophils 0.03 D-Dimer 807 H Sodium 136 Potassium 3.7 Chloride 100 Carbon Dioxide 31.4 Anion Gap 4.6 BUN 13 Creatinine 1.0 Est GFR (CKD-EPI 2020) 88.88 Glucose 138 H Calcium 8.9 Magnesium 1.8 Total Bilirubin 0.5 AST 33 ALT 39 Alkaline Phosphatase 73 Troponin I < 50 C-Reactive Protein Total Protein 7.8 Albumin 4.1 COVID-19 Source SARS-CoV-2 (PCR) 06/16/22 06/16/22 06/17/22 12:30 15:05 07:30 WBC RBC Hgb Hct MCV MCH MCHC RDW Plt Count MPV Immature Gran % Neutrophils % Lymphocytes % Monocytes % Eosinophils % Basophils % Nucleated RBC % Absolute Neutrophils Absolute Lymphocytes Absolute Monocytes Absolute Eosinophils Absolute Basophils D-Dimer Sodium 141 Potassium 4.1 Chloride 103 Carbon Dioxide 33.9 H Anion Gap 4.1 BUN 14 Creatinine 0.7 Est GFR (CKD-EPI 2020) 108.82 Glucose 95 Calcium 8.5 Magnesium Total Bilirubin 0.4 AST 35 ALT 35 Alkaline Phosphatase 62 Troponin I C-Reactive Protein 2.56 H Total Protein 6.5 Albumin 3.3 L COVID-19 Source Nasal/Nares SARS-CoV-2 (PCR) POSITIVE A* 06/17/22 07:30 WBC 5.07 RBC 4.90 Hgb 14.4 Hct 44.4 MCV 91 MCH 29.4 MCHC 32.4 RDW 13.0 Plt Count 196 MPV 9.7 Immature Gran % 0.2 Neutrophils % 63.9 Lymphocytes % 22.1 Monocytes % 13.6 Eosinophils % 0.0 Basophils % 0.2 Nucleated RBC % 0.0 Absolute Neutrophils 3.24 Absolute Lymphocytes 1.12 L Absolute Monocytes 0.69 Absolute Eosinophils 0.00 Absolute Basophils 0.01 D-Dimer Sodium Potassium Chloride Carbon Dioxide Anion Gap BUN Creatinine Est GFR (CKD-EPI 2020) Glucose Calcium Magnesium Total Bilirubin AST ALT Alkaline Phosphatase Troponin I C-Reactive Protein Total Protein Albumin COVID-19 Source SARS-CoV-2 (PCR)
--- NOTE | 2022-06-17 09:52 | INITIAL_ITS ---
- If Service Date Differs Date of service: 06/17/22 Time of Service: 09:52 Care Management Initial Assess REASON FOR HOSPITALIZATION:: COVID w/Hypoxia PAST MEDICAL HISTORY/PAST SURGICAL HISTORY:: Medical History . GERD (gastroesophageal reflux disease). History of alcohol abuse. Hypertension. Surgical History . Arthroplasty. 07/05/15; LEFT HIP;[facility]. GASTROSCOPY. 06/21/14- DR. NG. Open Carpal Tunnel release. RIGHT. Repair of umbilical hernia. S/P foot surgery. S/P rotator cuff repair PREVIOUS FUNCTIONAL STATUS/SOCIAL/FAMILY SUPPORTS:: Andrew resides with his significant other and four year old child in [place], [place]. He is previously independent at baseline, though experienced a stroke recently and is having some residual issues. Currently, he is ambulating independently with standby assistance. CURRENT FUNCTIONAL STATUS:: COVID precautions. ADVANCE DIRECTIVES:: None on file. Has patient been provided with info about the portal/API?: Yes Did the patient sign up for the portal?: Yes CODE STATUS:: Full Code INSURANCE COVERAGE / FINANCIAL ISSUES:: Medicaid CURRENT HOME/COMMUNITY SERVICES/EQUIPMENT:: None currently. PRIMARY CARE PHYSICIAN:: Wenceslao Jimenez POTENTIAL DISCHARGE NEEDS:: Follow up appointments. PATIENT/FAMILY EDUCATION NEEDS:: Review discharge instructions, discuss Ask Me Three. ANTICIPATED BARRIERS TO DISCHARGE:: None identified at this time. TRANSPORTATION:: Via private vehicle with family. PLAN:: Anticipate Akash will return home with no additional services when ready per MD. He will follow up with his PCP and plan of care as prescribed. He will transport via private vehicle with his significant other, Rasheeda.
--- NOTE | 2022-06-17 14:46 | W.PM.DS.N ---
Date of service: 06/17/22 Time of Service: 14:47 DS: Diagnosis Discharge Diagnosis (1) COVID-19: Status: Acute (2) Cerebellar stroke: Status: Chronic (3) Opioid dependence: Status: Acute (4) Tobacco dependence: Status: Acute Discharge Plan Disposition Patient Disposition: Home Condition: Improving Discharge Details Reason For Visit: Covid With Hypoxia Admit Date/Time: 06/16/22 17:35 Admit Provider: Miguel Woods Attending Provider: Miguel Woods Primary Care Provider: Wenceslao Jimenez Hospital Course Hospital Course: 56 year old male presented to the [facility] ED with c/o dizziness. He reported similar dizziness prior to his CVA. He reported starting feeling symptoms 24 hours prior to presentation. He denied fever or cough or chest pain.? He is vaccinated but not boosted for covid.? He denied known contacts.? His neuro exam and CTA of head and neck were unremarkable.? He was hypoxic in the ED, SPO2 into the 80's with c/o SOB.?His covid test came back positive.? He was started on remdesivir and decadron and was ?placed on observation status on the medical floor. He had no oxygen requirements overnight and felt better in the morning. He had no oxygen requirements, he maintained oxygen greater than 94% on room air with exercise. He was discharged to home stable with Paxlovid. Discussed with Dr Woods Home Meds and New Rx's Prescriptions: New benzonatate 100 mg capsule 100 mg PO QID PRNQty: 30 0RF Paxlovid (EUA) 300 mg (150 mg x 2)-100 mg Tablets,Dose Pack 1 ea PO BID Qty: 0 0RF Continued polyethylene glycol 3350 [Miralax] 17 gram powder in packet 17 g PO DAILY PRN (Reason: constipation) Qty: 30 5RF gabapentin 100 mg capsule 100 mg PO BID Qty: 60 3RF omeprazole 20 mg capsule,delayed release(DR/EC) 20 mg PO DAILY Qty: 90 3RF aspirin 81 mg tablet,delayed release (DR/EC) 81 mg PO DAILY Qty: 90 3RF buprenorphine-naloxone 2-0.5 mg tablet, sublingual 1.5 tab SUBLINGUAL DAILY Qty: 42 0RF Rx Instructions: Fill on 05/03 naproxen 500 mg tablet 500 mg PO BID PRN (Reason: pain) Qty: 60 1RF naproxen 500 mg tablet 500 mg PO BID PRN (Reason: pain) Qty: 60 1RF metoprolol succinate 50 mg tablet extended release 24 hr 50 mg PO DAILY Qty: 90 3RF atorvastatin 80 mg tablet 80 mg PO DAILY Qty: 90 3RF albuterol sulfate [ProAir HFA] 90 mcg/actuation HFA aerosol inhaler 1 - 2 puff Inhalation Q4H PRN Qty: 1 3RF albuterol sulfate [Ventolin HFA] 90 mcg/actuation HFA aerosol inhaler 2 puff inhalation QID PRN (Reason: shortness of breath or wheezing) Qty: 8.5 2RF Discharge Instructions Instructions: COVID-19 (Coronavirus Disease 2019) (DC), COVID-19: Slow the Coronavirus Spread (DC), Face Coverings (Masks) and COVID-19 (DC) Stand Alone Forms: Nursing Discharge Form Referrals: Wenceslao Jimenez MD [Primary Care Provider] - (Please call Saturday to make a follow up appointment for 1-2 weeks) Activity:: Activity as Tolerated Equipment/Supplies:: No Equipment Needed Diet:: As Tolerated Discharge Orders Discharge Orders: Discharge Order (Routine); Ordered 06/17/22 Ordered By: Luz Martínez Discharge Data Discharge Date/Time-TO BE ENTERED AT DEPARTURE: 06/17/22 16:24 DS: Summary Time Spent with Patient providing and/or coordinating discharge services: Greater than 30 minutes Status at Discharge Functional status at discharge: independent ambulation Overall status at discharge: patient is progressing back to baseline Mental Status: mental status grossly normal Speech and Movement: speech and movement normal Mood: congruent mood Affect: normal affect Exam Const General: cooperative, no acute distress and ill appearing chronically Nutritional Appearance: average body habitus Orientation: alert, awake and oriented x3 HENMT Head: normal to inspection, normocephalic and atraumatic Mouth: oral mucosae normal Chest Chest: normal inspection of the chest Resp Effort & Inspection: normal respiratory effort Auscultation: diminished lung sounds and rhonchi (bases bilateral, ) Cardio Rate: regular rate Rhythm: regular rhythm Heart Sounds: no murmurs GI Inspection: normal to inspection Palpation: soft Skin General skin exam: no rashes or lesions noted Neuro General: patient alert, patient awake, patient oriented x3 and no focal motor deficits Cognition: normal cognition Speech: speech normal Motor: muscle tone normal throughout Extrem General: normal to inspection, full ROM and no pedal edema Psych Mental Status: mental status grossly normal Speech and Movement: speech and movement normal Mood: congruent mood Affect: normal affect Attitude: cooperative Thought Process: normal Thought Content: normal Insight: insight good Judgment: judgment good DS: Data Vitals/I&O Vitals and I&O: Vital Signs Temperature 36.4 C L 06/17/22 08:56 Temperature Source Tympanic 06/17/22 08:56 Pulse 69 06/17/22 08:56 Pulse Rhythm Regular 06/17/22 06:36 Pulse 80 06/16/22 18:50 Respiratory Rate 17 06/17/22 08:56 Respiratory Effort 06/17/22 09:15 Respiratory Depth Normal 06/17/22 09:15 Respiratory Pattern Normal 06/17/22 09:15 Blood Pressure 117/72 06/17/22 08:56 Blood Pressure Mean 74 06/16/22 18:45 Blood Pressure Position Sitting 06/16/22 12:01 Pulse Oximetry 95 06/17/22 08:56 Oxygen Delivery Method Room Air 06/17/22 08:56 Oxygen Flow Rate 0 06/17/22 08:56 Pain Level 0 06/17/22 08:56 Intake & Output 06/16/22 06/17/22 06/17/22 23:59 11:59 23:59 Intake Total 500 / 500 360 / 360 Balance 500 / 500 360 / 360 Weight 76.8 kg Intake: IV 500 / 500 Oral 360 / 360 Other: Comment independent to the toilet Stool Characteristics Soft Formed Voiding Methods Toilet Data Completed and Pending Labs on day of discharge: Labs from last 24 hours 06/17/22 06/17/22 06/16/22 07:30 07:30 15:05 WBC 5.07 RBC 4.90 Hgb 14.4 Hct 44.4 MCV 91 MCH 29.4 MCHC 32.4 RDW 13.0 Plt Count 196 MPV 9.7 Immature Gran % 0.2 Neutrophils % 63.9 Lymphocytes % 22.1 Monocytes % 13.6 Eosinophils % 0.0 Basophils % 0.2 Nucleated RBC % 0.0 Absolute Neutrophils 3.24 Absolute Lymphocytes 1.12 L Absolute Monocytes 0.69 Absolute Eosinophils 0.00 Absolute Basophils 0.01 D-Dimer Sodium 141 Potassium 4.1 Chloride 103 Carbon Dioxide 33.9 H Anion Gap 4.1 BUN 14 Creatinine 0.7 Est GFR (CKD-EPI 2020) 108.82 Glucose 95 Calcium 8.5 Total Bilirubin 0.4 AST 35 ALT 35 Alkaline Phosphatase 62 C-Reactive Protein Total Protein 6.5 Albumin 3.3 L COVID-19 Source Nasal/Nares SARS-CoV-2 (PCR) POSITIVE A* 06/16/22 06/16/22 12:30 12:30 WBC RBC Hgb Hct MCV MCH MCHC RDW Plt Count MPV Immature Gran % Neutrophils % Lymphocytes % Monocytes % Eosinophils % Basophils % Nucleated RBC % Absolute Neutrophils Absolute Lymphocytes Absolute Monocytes Absolute Eosinophils Absolute Basophils D-Dimer 807 H Sodium Potassium Chloride Carbon Dioxide Anion Gap BUN Creatinine Est GFR (CKD-EPI 2020) Glucose Calcium Total Bilirubin AST ALT Alkaline Phosphatase C-Reactive Protein 2.56 H Total Protein Albumin COVID-19 Source SARS-CoV-2 (PCR) PFSH All Active Problems (Updated 06/18/22 @ 00:08 by JEANCARLOS JOHNSON) Tobacco dependence (Acute) COVID-19 (Acute) Low back pain (Acute) Neuropathy (Acute) Sensorineural hearing loss of both ears (Acute) Tinnitus, bilateral (Acute) Encounter for screening colonoscopy (Acute) Constipation (Acute) Addiction (Acute) Alcoholism (Chronic) stable not drinking Cerebellar stroke (Chronic) Low blood pressure (Acute) Wheezing (Acute) Opioid dependence (Acute) Vertigo (Acute) Subclavian artery stenosis, right (Acute) Vertigo (Acute) Anxiety (Chronic 07/24/07) trial wellbutrin prn lorazepam Smoker (Acute) encouraged regular use of wellbutrin, both for mood and tobacco abuse Nausea & vomiting (Acute) Cubital tunnel syndrome on left (Acute) Carpal tunnel syndrome of left wrist (Acute) Encounter for screening colonoscopy (Acute) Hyperlipidemia (Acute) History of gastroscopy (Acute 06/21/14) History of total left hip replacement (Acute 07/05/15) History of umbilical hernia repair (Acute) Status post carpal tunnel release (Acute) Anxiety disorder (Chronic) Polyuria (Acute) Traumatic dislocation of shoulder region (Acute) left shoulder separation Shoulder pain (Acute) right shoulder impingement Rotator cuff syndrome (Acute) left Prostatitis (Acute) Generalized osteoarthrosis (Acute) mild DJD left hip Essential hypertension with goal blood pressure less than 140/90 (Acute 01/03/16) Elev transaminase/LDH (Acute 03/01/09) Depressive disorder (Acute) opiate addiction Medical History GERD (gastroesophageal reflux disease) History of alcohol abuse Hypertension Surgical History Arthroplasty 07/05/15; LEFT HIP;[facility] GASTROSCOPY 06/21/14- DR. NG Open Carpal Tunnel release RIGHT Repair of umbilical hernia S/P foot surgery S/P rotator cuff repair Social History Smoking/Tobacco Use Status: Current every day Tobacco Type: cigarettes Quit status: considering quitting Second Hand Exposure: Yes Counseling given: provider counseling and counseling >3 minutes Smoking risk assessment performed?: Yes Alcohol Intake: former Year quit: 2016 Details: reports stopped drinking 10/12/16 Drug use: Current Sobriety Details: no recent drug use, on suboxone Caregiver/Support person: Yes Household members: spouse and children Housing: house Communication Needs: None Do you need help understanding health information?: Rarely current occupation: [employer] Pets and animals: Yes Pets and animals: cat(s) Do you think of yourself as: straight/heterosexual Current gender identity: male What is your relationship status?: living with partner Panel score (0-1 are the most socially isolated patients): 1 Do you feel safe at home: Yes Do you feel safe in your relationship?: Yes Additional Social history: Lives in [place] with . Parents on the same property. Grew up in the area.
[2022-06-17 15:32] VITALS: PULSE 68; PULSE 74; PULSE 80; RESP 14; RESP 16; RESP 18; O2SAT 89; O2SAT 99
== END 2022-06-17 16:24 | disposition home or self-care (01) | DRG 177 ==
LOC: ER 18:21 → MS 19:38
PROVIDERS: Nurse Practitioner Acute Care; Admitting Provider Internal Medicine; Emergency Provider Student in an Organized Health Care Education/Training Program; PCP Family Medicine; Visit Provider Internal Medicine
DX: U07.1 COVID-19 (principal); J96.01 Acute respiratory failure with hypoxia; F11.20 Opioid dependence, uncomplicated; F17.210 Nicotine dependence, cigarettes, uncomplicated; Z86.73 Personal history of transient ischemic attack (TIA), and cerebral infarction without residual deficits; M54.50 Low back pain, unspecified; G62.9 Polyneuropathy, unspecified; H90.3 Sensorineural hearing loss, bilateral; F10.21 Alcohol dependence, in remission; F41.9 Anxiety disorder, unspecified; Z96.642 Presence of left artificial hip joint; I70.8 Atherosclerosis of other arteries; F32.A Depression, unspecified; I10 Essential (primary) hypertension; M15.9 Polyosteoarthritis, unspecified; K21.9 Gastro-esophageal reflux disease without esophagitis
CPT/HCPCS: 36415; 70496; 70498; 71275; 80053; 87635; 93005; 94618; 96361; 96374; 99285; J1650; 83735; 84484; 85025; 85379; 86140; 93010; 99223; 99239; J0248; J1100; J8540

== ENCOUNTER 2022-09-28 02:52 | Outpatient (CLI) | payer MEDICAID, SELFPAY ==
[2022-09-28 14:56] LABS: ESR 21 mm/hr (0-20)
[2022-09-28 15:36] LABS: Hemoglobin A1C 6.1 % (<5.7)
[2022-10-01 13:24] LABS: Albumin g/dL 4.4 g/dL (3.6-5.2); Total Protein 7.4 g/dL (6.3-8.2)
== END 2022-09-28 02:53 | disposition home or self-care (01) ==
PROVIDERS: PCP Family Medicine; Visit Provider Psychiatry & Neurology Neurology
DX: G62.9 Polyneuropathy, unspecified (principal); R73.9 Hyperglycemia, unspecified
CPT/HCPCS: 36415; 85652; 83036; 84165

== ENCOUNTER 2022-10-15 02:38 | Outpatient (CLI) | payer MEDICAID, SELFPAY ==
[2022-10-16 18:40] LABS: PSA, Screening 2.1 ng/mL (<=3.5)
== END 2022-10-15 02:39 | disposition home or self-care (01) ==
PROVIDERS: PCP Family Medicine; Visit Provider Family Medicine
DX: Z12.5 Encounter for screening for malignant neoplasm of prostate (principal)
CPT/HCPCS: 36415; 84153

== ENCOUNTER → 2023-12-23 01:15 | Outpatient (CLI) | payer MEDICAID, SELFPAY ==
--- NOTE | 2023-12-23 07:30 | DI.NM_ITS ---
APPROVED REPORT Exam: Pharmacologic Patient Location: Out-Patient Room/Bed: Stress Nurse: Judah Rose RN Ordering Provider:DUANE PHOENIX, Contact Number: [phone] BMI: 30.22 Baseline Rhythm: Sinus Rhythm Indications: Chest pain. Medical History Medical History: ETOH, Opiod dependance, HTN, Cerebellar stroke, Smoker, Anxiety, Depression. Cardiac Medications: Metoprolol, atorvastatin. Allergies: Codeine Cardiac Risk Factors: HTN, smoker, ETOH. Pretest Chest Pain Characteristics: No chest pain Exercise History: Indeterminate Lung Sounds: clear Heart Sounds: Regular Stress Test Details Test: Exercise stress converted to pharmacologic stress due to failure to obtain a diagnostic stress test. Reason for pharmacologic stress test: changed from exercise stress test due to inability to reach t arget heart rate. Nuclear Acquisition: Rest Tc-99m/Stress Tc-99m 1 day Rest Isotope: Tc-99m Sestamibi. Dose: 10.8 Date: 12/23/2023 Injection Time: 1055 Stress Isotope: Tc-99m Sestamibi. Dose: 31.5 Date: 12/23/2023 Injection Time: 1240 HR Resting HR Supine: 65 bpm Max Heart Rate (APMHR): 163.958596 bpm Resting HR Standin bpm Target HR (85% APMHR): 138.992183 bpm Max HR Achieved: 133 bpm % of APMHR: 81.60 Recovery HR: 88 bpm HR response to stress: Normal HR response to stress BP Resting BP Supine: 138/92 mmHg Resting BP Standin/72 mmHg Max BP: 190/84 mmHg Recovery BP: 138/74 mmHg BP response to stress: Normal blood pressure response to stress. ECG Resting ECG: Sinus Rhythm Stress ECG: Sinus Tachycardia ST Change: No significant ST segment changes noted Arrhythmia: APC's, SVT Comment: multiple frequent PAC's, 5 beat run svt X1. Recovery ECG: Sinus Rhythm Recovery ST Change: No significant ST segment changes noted Comment: PAC's Clinical Reason for Termination: Fatigue, Dyspnea Stress Symptoms: Dyspnea, General Fatigue Exercise duration: 3 min39 sec Highest Stage Reached: Stage 1: 1.7 mph at 10% grade. Exercise capacity: 4.64 METs Angina Score: None Galdamez Treadmill Score: 3.1 Rate Pressure Product: 20579 Stress ECG Conclusion 1. Resting electrocardiogram was normal 2. Patient underwent testing using a combination of low-level exercise and pharmacologic stress with regadenoson 3. Peak heart rate achieved was 83% of predicted for age 4. The electrocardiographic portion of the test was nondiagnostic 5. See MPI report Galdamez Treadmill Score is 3.1 which is Moderate risk. Stress Test Summary STAGE Time (mins) Speed (mph) Grade (%) HR BP SpO2 SYMPTOMS METS Supine 65 138/92 92 Standing 72 144/72 1 3 1.7 10 133 4.5 2 6 2.5 12 Fatigue, dyspnea. 7 1 min post Lexiscan injection 104 186/80 98 dyspnea 3 min post Lexiscan injection 83 148/72 6 min post Lexiscan injection 86 138/74 95 MPI Conclusion Myocardial perfusion is normal. There is no ischemia or evidence of prior infarction EF 48% with normal wall motion Radiologist Interpretation Radiologist Interpretation by: Saurabh Kerr MD Interpretation Date/Time: 12/23/2023 16:08:40
[2023-12-23] MEDS: Regadenoson 0.4 MG/5 ML SYR IVP (13:24)
== END ==
PROVIDERS: PCP Family Medicine; Visit Provider Family Medicine
DX: R07.9 Chest pain, unspecified (principal)
CPT/HCPCS: 78452; 93017; J2785

== ENCOUNTER 2024-03-25 01:01 | Outpatient (CLI) | payer MEDICAID, SELFPAY ==
--- NOTE | 2024-03-25 06:45 | DI.CTLCSR_ITS ---
Exam(s) CT CHEST LUNG CANCER SCREEN EXAM: CT CHEST LUNG CANCER SCREEN CLINICAL HISTORY: Screening for lung cancer,current smoker, z12.2 TECHNIQUE: Imaging Protocol: Axial computed tomography images with coronal and sagittal reformatted images were created and reviewed COMPARISON: CT CT CHEST PE CTA from 06/16/2022 FINDINGS: Tracheobronchial tree: Patent where visualized. No bronchiectasis. Pulmonary parenchyma: Mild paraseptal emphysematous changes are present. No architectural distortion . Lung Nodules: There is a 5.7 mm ground-glass nodule in the medial aspect of the right lower lobe (ser ies 3, image 214). No other pulmonary nodules are identified. Mediastinum and Reina: No dominant adenopathy or fluid collection. The esophagus is unremarkable. Thyroid gland: Unremarkable. Lymph nodes: Unremarkable. Pleura: No effusion or pneumothorax. Heart: The heart is not dilated. Coronary artery calcifications are present. No pericardial effusion . Aorta: Thoracic aorta non-dilated.Mild atherosclerotic calcification is present. Upper abdomen: Unremarkable. Soft Tissues: Mild gynecomastia. Bones: Within normal limits. IMPRESSION: 5.7 mm ground-glass nodule in the right lower lobe. Lung RADS Cat 3 - Probably Benign: Probably benign finding(s) - short term follow-up suggested; inclu de nodules with a low likelihood of becoming a clinically active cancer. Lung-RADS 1.0 CATEGORIES: Category 0 - Prior chest CT exam(s) being located for comparison. Category 1 - Annual screening in 12 months. No nodules or definitely benign nodules. Category 2 - Annual screening in 12 months. Benign appearance. Nodules with low likelihood of becomin g active cancer. Category 3 - 6-month follow-up. Probably benign. Short-term follow-up suggested. Nodules with low lik elihood of becoming active cancer. Category 4A - 3-month follow-up and CT/PET if >8 mm in size. Suspicious finding. Findings which requi re additional testing. Category 4B - Findings which require additional testing and tissue sampling. Suspicious finding. Category 4X - Category 3 or 4 nodules with additional features or imaging findings that increases the suspicion of malignancy. Modifier S- Potentially clinically significant finding. (Non lung cancer) RADIATION DOSE DELIVERED: 32.15mGy.cm Total DLP 32.15mGy.cmTotal DLP DATA REPOSITORY: All CT scans at this facility are submitted to the National Radiology Data Registry (NRDR) Dose Index Registry (DIR) with the [employer] (ACR). RADIATION OPTIMIZATION: All CT scans at this facility use at least one of these dose optimization te chniques: automated exposure control; mA and/or kV adjustment per patient size (includes targeted exa ms where dose is matched to clinical indication); or iterative reconstruction.
== END 2024-03-25 01:21 ==
LOC: DI 01:01
PROVIDERS: PCP Family Medicine; Visit Provider Family Medicine
DX: F17.210 Nicotine dependence, cigarettes, uncomplicated (principal); Z12.2 Encounter for screening for malignant neoplasm of respiratory organs
CPT/HCPCS: 71271

== ENCOUNTER 2024-10-28 01:17 | Outpatient (CLI) | payer MEDICAID, SELFPAY ==
--- NOTE | 2024-10-28 06:30 | DI.CT_ITS ---
Exam(s) CT CHEST WO EXAM: CT CHEST WO CLINICAL HISTORY: reassess RLL nodule,c/o cough/phlegm x 2 month,r91.1. TECHNIQUE: Imaging protocol: Axial computed tomography images were obtained and coronal and sagittal reformatted images were created and reviewed. Lung Computer Aided Detection (CAD) was utilized. COMPARISON: CT CT CHEST LUNG CANCER SCREEN from 03/25/2024 FINDINGS: Tracheobronchial tree: Patent where visualized. No bronchiectasis is present. No mucous plugging. Pulmonary parenchyma: Emphysematous changes are present in the lungs. No architectural distortion. T he 6 mm nodule in the medial aspect of the right lower lobe is unchanged. (Series 2, image 101). No new pulmonary nodules are present. No focal consolidating infiltrates are present. Mediastinum and Reina: No dominant adenopathy or fluid collection. The esophagus is unremarkable. Thyroid gland: Unremarkable. Pleura: No effusion or pneumothorax. Heart: The heart is not dilated. Coronary artery calcification is present. No pericardial effusion. Aorta: Thoracic aorta non-dilated. Atherosclerotic calcification is present. Upper abdomen: Unremarkable. Lymph nodes: Within normal limits. Soft tissues: Mild bilateral gynecomastia. Bones:Within normal limits for the patient's age. IMPRESSION: 1. Stable 6 mm right lower lobe pulmonary nodule. No new pulmonary nodules. 2. No acute pulmonary process. RADIATION DOSE DELIVERED: 168.26mGy.cm Total DLP 168.26mGy.cm Total DLP DATA REPOSITORY: All CT scans at this facility are submitted to the National Radiology Data Registry (NRDR) Dose Index Registry (DIR) with the [employer] (ACR). RADIATION OPTIMIZATION: All CT scans at this facility use at least one of these dose optimization te chniques: automated exposure control; mA and/or kV adjustment per patient size (includes targeted exa ms where dose is matched to clinical indication); or iterative reconstruction.
== END 2024-10-28 01:37 ==
LOC: DI 01:17
PROVIDERS: PCP Family Medicine; Visit Provider Family Medicine
DX: R91.1 Solitary pulmonary nodule (principal)
CPT/HCPCS: 71250

== ENCOUNTER 2024-12-07 04:17 | Outpatient (CLI) | payer MEDICAID, SELFPAY ==
[2024-12-07 12:27] LABS: Calculated LDL 62 mg/dL (<100); Cholesterol 136 mg/dL (<200); HDL Cholesterol 62 mg/dL (>or=40); Triglyceride 63 mg/dL (<150)
[2024-12-07 18:30] LABS: PSA, Screening 3.9 ng/mL (<=3.5)
== END 2024-12-07 04:18 | disposition home or self-care (01) ==
LOC: LOS 04:17
PROVIDERS: PCP Family Medicine; Visit Provider Family Medicine
DX: E78.5 Hyperlipidemia, unspecified (principal); Z12.5 Encounter for screening for malignant neoplasm of prostate
CPT/HCPCS: 36415; 80061; 84153

== ENCOUNTER 2025-04-13 03:09 | Outpatient (CLI) | payer MEDICAID, SELFPAY ==
--- NOTE | 2025-04-13 | DI.US_ITS ---
Exam(s) US RENAL EXAM: US RENAL CLINICAL HISTORY: CHRONIC CONSTIPATION K59.09 HX PROSTATITIS Z87.438 LUTS R39.9. TECHNIQUE: Ahmadi scale imaging and color doppler were used. COMPARISON: US ABDOMEN ULTRASOUND (P) from 02/15/2012 FINDINGS: Right kidney: 12.6cm Echogenicity: Normal Hydronephrosis: No Cyst or mass: No Nephrolithiasis: No Left kidney: 10.9cm Echogenicity: Normal Hydronephrosis: No Cyst or mass: 15 millimeters cyst lower pole. No follow-up recommended. Nephrolithiasis: No Bladder:Normal. Prevoid vol:72 cc Postvoid vol:0 cc Prostate volume measured a 4 cc. IMPRESSION: Small simple cyst left kidney. Otherwise negative renal ultrasound. DATA REPOSITORY:
== END 2025-04-13 03:29 ==
LOC: DI 03:10
PROVIDERS: PCP Family Medicine; Visit Provider Nurse Practitioner
DX: K59.09 Other constipation (principal); Z87.438 Personal history of other diseases of male genital organs; N28.1 Cyst of kidney, acquired
CPT/HCPCS: 76770

== ENCOUNTER 2025-04-16 14:45 | Outpatient (CLI) | payer MEDICAID, SELFPAY ==
[2025-04-16 15:52] LABS: Abs Immature Grans 0.03 10^3/uL (0.0-0.06); HCT 43.3 % (40.0-50.0); HGB 14.1 g/dL (13.5-17.5); Immature Grans % 0.3 %; MCH 29.1 pg (27.0-33.0); MCHC 32.6 % (32.0-36.0); MCV 89 fL (80-95); MPV 9.4 fL (8.0-11.0); Platelet Count 269 10^3/uL (130-400); RBC 4.85 10^6/uL (4.36-5.78); RDW 13.3 % (11.8-14.1); RDW-SD 43.8 fL; WBC 9.91 10^3/uL (4.4-10.8)
[2025-04-16 16:01] LABS: ALT 27 U/L (16-63); AST 23 U/L (15-37); Albumin 3.7 g/dL (3.4-5.0); Alkaline Phosphatase 97 U/L (46-116); Amylase 26 U/L (25-115); Anion Gap 6.0 mmol/L (3-11); BUN 13 mg/dL (7-18); Bilirubin, Total 0.8 mg/dL (0.2-1.0); CO2 33.0 mmol/L (21.0-32.0); Calcium 9.3 mg/dL (8.5-10.1); Chloride 102 mmol/L (98-107); Estimated GFR 102.58 (mL/min/1.73m2); Glucose 109 mg/dL (74-106); Lipase 21 U/L (<78); Potassium 4.2 mmol/L (3.5-5.1); Sodium 141 mmol/L (136-145); Total Protein 8.0 g/dL (6.4-8.2)
== END 2025-04-16 14:46 | disposition home or self-care (01) ==
LOC: LOS 14:45
PROVIDERS: PCP Family Medicine; Visit Provider Nurse Practitioner Family
DX: R10.12 Left upper quadrant pain (principal)
CPT/HCPCS: 36415; 80053; 83690; 82150; 85025

== ENCOUNTER 2025-04-27 01:15 | Outpatient (CLI) | payer MEDICAID, SELFPAY ==
--- NOTE | 2025-04-27 06:45 | DI.CT_ITS ---
Exam(s) CT ABDOMEN PELVIS W EXAM: CT ABDOMEN PELVIS W CLINICAL HISTORY: persistent LUQ PAIN,R10.12 TECHNIQUE: Imaging Protocol: Axial computed tomography images with coronal and sagittal reformatted images were created and reviewed. CONTRAST MATERIAL: Intravenous: Omnipaque 350 Contrast volume:75 mL Oral: Yes COMPARISON: CT CT SACRUM AND COCCYX WO from 03/06/2020 CT,NM,TMT NM MPI REST STRESS GRP from 12/23/[address] CHEST WO from 10/28/2024 FINDINGS: ABDOMEN: Lung Bases: No acute abnormality. Liver: Normal density. No measurable mass. Portal, Superior Mesenteric, and Splenic Veins: Unremarkable. Gallbladder and Biliary Tract: No radiodense calculus or dilation. Pancreas: Normal density, no abnormal calcifications or inflammatory process. Spleen: Normal. Adrenals: No masses seen. Kidneys: Normal size, contour and axis. No radiodense stones or obstructive uropathy. There are simple bilateral renal cysts. No follow-up is recommended. Abdominal Aorta: Abdominal portion non-dilated. Atherosclerotic calcification is present. Bowel: No obstruction or bowel wall thickening. There is stool throughout the colon suggesting constipation. There is a normal appendix present. Peritoneal Cavity: No ascites, collection or mesenteric inflammatory response. No free air. Lymph Nodes: Within normal limits. Bones: Within normal limits for the patient's age. The patient has a left total hip arthroplasty. Soft Tissues: There are small bilateral fat containing inguinal hernias. PELVIS: Bladder: Symmetric distention, no gross wall thickening. Reproductive Organs: Unremarkable as visualized. Lymph Nodes: Within normal limits. Bones: Within normal limits for the patient's age. IMPRESSION: 1. There is no acute abdominal or pelvic process. 2. Moderate amount of stool throughout the colon suggesting constipation. RADIATION DOSE DELIVERED: 353.76mGy.cm Total DLP DATA REPOSITORY: All CT scans at this facility are submitted to the National Radiology Data Registry (NRDR) Dose Index Registry (DIR) with the [employer] (ACR). RADIATION OPTIMIZATION: All CT scans at this facility use at least one of these dose optimization techniques: automated exposure control; mA and/or kV adjustment per patient size (includes targeted exams where dose is matched to clinical indication); or iterative reconstruction.
[2025-04-27] MEDS: Barium Sulfate 2% W/V-Berry Smoothie 450 ML BTL PO (09:47)
[2025-04-27] MEDS: Barium Sulfate 2% W/V-Creamy Vanilla Smoothie 450 ML BTL PO (09:47)
[2025-04-27] MEDS: Omnipaque 350 MG/ML 500 ML BTL-Imaging package IJ (11:57)
[2025-04-27] MEDS: Normal Saline - Diluent 50 ML VIAL IJ (11:57)
[2025-04-27] MEDS: Normal Saline Flush 10 ML SYR IVP (11:57)
== END 2025-04-27 01:35 ==
LOC: DI 01:15
PROVIDERS: PCP Family Medicine; Visit Provider Nurse Practitioner Family
DX: R10.12 Left upper quadrant pain (principal)
CPT/HCPCS: 74177